=== PATIENT | female | born 1965 | race Caucasian/White ===

== ENCOUNTER → 2020-05-25 13:58 | Outpatient (CLI) | payer OTHER, SELFPAY ==
--- NOTE | 2020-05-25 14:04 | BI_ITS ---
MAMMOGRAPHY - UNILATERAL DIAGNOSTIC: LEFT BREAST REASON FOR EXAM: Female, 54 years old. Abnormal screening mammogram. PERTINENT HISTORY: Mother with breast cancer. Aunt with breast cancer. TECHNIQUE: 90 degree lateral view of the right breast was obtained. . CAD: Full Field Digital Mammography with Computer Added Detection was performed. COMPARISON: Comparison is made with prior outside examination dated 03/25/2020. FINDINGS: Breast Composition: The breasts are heterogeneously dense, which may obscure small masses. There are no dominant masses or suspicious calcifications. No other significant abnormalities are identified. BI/DIAG MAMM W/CAD, UNILAT IMPRESSION: Stable unilateral diagnostic mammogram. Correlation with ultrasound is recommended for further evaluation. ASSESSMENT CATEGORY: BIRADS Category 0: Incomplete. Need additional imaging evaluation. A letter regarding these results will be sent to the patient by the facility within 30 days. Approximately 10% of breast cancers are not detected by mammography. A normal mammogram should not delay biopsy of a clinically suspicious abnormality. Electronically Signed: Mike Wolfe MD at 8:01 EDT , Service support ,
--- NOTE | 2020-05-25 14:04 | US_ITS ---
STUDY: ULTRASOUND BREAST - LEFT REASON FOR EXAM: Female, 54 years old. TECHNIQUE: Axial and longitudinal images of the LEFT breast were performed with a high resolution ultrasound transducer. # OF IMAGES: 44 COMPARISON: Comparison is made with prior mammogram done earlier in the day as well as prior outside imaging dated 09/22/2020. FINDINGS: LEFT Breast: There is a 4 mm x 6 mm x 4 mm cyst at the 1 o''clock position of the breast at 1 cm from nipple. US/Breast Limited Unilateral IMPRESSION: There is a 4 mm x 6 mm x 4 mm cyst at the 1 o''clock position of the breast at 1 cm from nipple. ASSESSMENT CATEGORY: BIRADS Category 2: Benign. A letter regarding these results will be sent to the patient by the facility within 30 days. Electronically Signed: Mike Wolfe MD at 18:45 EDT , Service support ,
== END ==
PROVIDERS: PCP Family Medicine; Referring Provider Nurse Practitioner Family; Visit Provider Nurse Practitioner Family
DX: R92.8 Other abnormal and inconclusive findings on diagnostic imaging of breast (principal)
CPT/HCPCS: 76642; 77065

== ENCOUNTER → 2020-07-23 07:02 | Outpatient (CLI) | payer OTHER, SELFPAY ==
--- NOTE | 2020-07-23 09:10 | STRESSREP ---
Stress Test Report Date: 07-23-2020 Procedure: Exercise tolerance test/imaging study Indications: Chest pain; shortness of breath/dyspnea with exertion Consent: Per the patient Procedure: The patient exercised on a Lucius protocol for 9 minutes completing Stage III achieving a peak heart rate of 151 bpm (89% predicted maximal heart rate) with a peak blood pressure 144/72 mmHg and a peak MET capacity of 10 METs. The baseline ECG demonstrated normal sinus rhythm. The peak exercise ECG demonstrated no obvious ECG changes. There was a rare PVC during exercise. The functional capacity was considered good. There was no complaint of chest discomfort during exercise or recovery. The examination was discontinued secondary to dyspnea. Impression: 1. Technically adequate (percent predicted maximal heart rate greater than 85%) exercise tolerance test 2. Peak exercise ECG with no obvious ECG changes 3. There was a rare PVC during exercise 4. Nuclear images pending Myocardial perfusion imaging study: Technique: The patient was injected with 11.2 mCi of technetium 99m Cardiolite and subsequently rest SPECT Cardiolite nuclear imaging was obtained in the horizontal long, vertical long, and short axis views. The patient exercised on a Lucius protocol for 9 minutes completing Stage III achieving a peak heart rate of 151 bpm (89% predicted maximal heart rate) with a peak blood pressure 144/72 mmHg and a peak MET capacity of 10 METs. The patient was injected with 32 point mCi of technetium 99m Cardiolite and subsequently stress SPECT Cardiolite nuclear imaging was obtained in the horizontal long, vertical long, and short axis views. A gated Cardiolite study at peak stress was obtained. Interpretation: Rest and stress SPECT Cardiolite nuclear imaging status post realignment, normalization, and attenuation correction, demonstrates the appearance of relative uniform tracer uptake and myocardial perfusion appearing within normal limits. There is end systolic thickening and brightening. The gated Cardiolite study demonstrates myocardial thickening and inward wall motion. The reported LVEF is 78%. Impression: 1. Rest and stress SPECT Cardiolite nuclear imaging demonstrate relative uniform tracer uptake and myocardial perfusion appearing within normal limits. 2. The gated Cardiolite study reports an LVEF of 78%. This note was generated with [employer] software. It may contain incorrect words, spelling, and punctuation that were not noted in checking the note before signing.
== END ==
PROVIDERS: PCP Family Medicine; Referring Provider Family Medicine; Visit Provider Family Medicine
DX: R07.9 Chest pain, unspecified (principal)
CPT/HCPCS: 78452; 93017; A9500; A4216

== ENCOUNTER 2023-04-10 10:31 | Day surgery (SDC) | payer OTHER, SELFPAY ==
[2023-04-10 10:51] VITALS: BP 126/86; PULSE 107; RESP 20; TEMP 36.7; O2SAT 100; BMI 25.0
[2023-04-10] MEDS: Lactated Ringers 1,000 ML 15 ML IV (10:59)
--- OUTSIDE RECORDS SUMMARY | 2023-04-10 11:09 | XMS RPT_ITS | CCD ---
Author Name Unknown Address [address] [place] [address] Organization [facility] Care Team Providers Care Advisor Consultant Name Role Phone Frank Gonsalez DO Primary Care Provider SELF Referring Unavailable ESTRELLITA MCNEAL Attending Unavailable FRANK GONSALEZ Primary Care Unavailable Medications Completed/Discontinued Medications Medication Drug Class(es) Dates Sig (Normalized) Sig (Original) DOCOSAHEXANOIC ACID/EPA (FISH OIL ORAL) (1 source) DOCOSAHEXANOIC A KERRY/EPA (FISH OIL ORAL) Take by mouth. 0 Active Problems Problem Classification Problem Date Documented Da te Episodic/Chronic Disorders of lipid metabolism (1 source) Hypercholesterolemi a; Translations: [Pure hypercholesterolemi a, unspecified] Onset: 08-16-2016 08-16-2016 Chronic Headache; including migraine (1 source) Migraine; Translations: [Migraine, unspecified, not intractable, without status migrainosus] Onset: 10-14-2008 10-14-2008 Chronic Headache; including migraine (1 source) Headache; Translations: [Headaches] 04-07-2023 Episodic Menopausal disorders (1 source) Menopausal symptom; Translations: [Menopausal and female climacteric states] 04-07-2023 Chronic Results Test Name Value Interpretation Reference Range Facil ity Vital Signs Date Time Vital Sign Value Performing Clinician Faci lity 04-07-2023 12:41-0500 Body height 154.9 cm Estrellita Mcneal MD Work Phone: [facility] 04-07-2023 12:41-0500 Body weight 63.5 kg Estrellita Mcneal MD Work Phone: [facility] 04-07-2023 12:41-0500 Diastolic blood pressure 72 mm[Hg] Estrellita Mcneal MD Work Phone: [facility] 04-07-2023 12:41-0500 Systolic blood pressure 110 mm[Hg] Estrellita Mcneal MD Work Phone: [facility] Encounters Encounter Date Encounter Type Care Provider Facility Start: 04-07-2023 End: 04-07-2023 ambulatory SELF Facility:[facility] Start: 04-07-2023 End: 04-07-2023 Patient encounter procedure Estrellita Mcneal MD Work Phone: OB/Gynecology Procedures Date Procedure Procedure Detail Performing Clinician Start: 08-16-2016 Lipid 1996 panel - S [place]ber[place] or Plasma Estrellita Mcneal MD Work Phone: Plan of Treatment Date Care Activity Detail Author Start: 03-25-2025 Screening for malign ant neoplasm of cervix [facility] Start: 02-27-2023 Depression Assessment Depression Ass essment [facility] Start: 10-28-2022 Covid-19 Vaccine ( season) Covid-19 Vaccine ( season) [facility] Start: 10-28-2022 Influenza vaccination Influenza Vacc ine (#1) [facility] Start: 08-16-2021 Lipid panel Lipid Screening [facility] Start: 05-25-2021 Screening for malign ant neoplasm of breast Mammogram Screening [facility] Start: 08-17-2019 Diabetes Screening Diabetes Screenin g [facility] Start: 10-03-2017 Shingrix Vaccine (1 of 2) Rapp grix Vaccine (1 of 2) [facility] Start: 10-03-2012 Screening for malign ant neoplasm of colon [facility] Start: 10-03-1986 Urine microalbumin profile DTa P,Tdap,Td Vaccine (1 - Tdap) [facility] Start: 10-03-1985 Hepatitis C screening Hepatitis C Thai brian [facility] Start: 10-03-1985 HIV screening HIV Screening [facility] Start: 1965 Hepatitis B Vaccine (1 of 3 - 3-dose series) Hepatitis B Vaccine (1 of 3 - 3-dose series) [facility] Immunizations Immunization Date Immunization Notes Care Provider Fa cility 01-13-2022 influenza virus vacc ine, unspecified formulation Estrellita Mcneal MD Work Phone: [facility] Payers Date Payer Category Payer Unknown [facility] [employer]F FUNDED [id number] 2023-Present [phone] [address] [place] [address] PPO [id number] 2023 Unknown [id number] Social History Date Type Detail Facility [facility]: [facility] Start: 02-06-2013 Tobacco use and exposure Smoke less tobacco non-user [facility] Start: 04-07-2023 Alcohol intake Current drinke r of alcohol (finding) [facility] Start: 04-07-2023 History of Social function [facility] Start: 04-07-2023 Tobacco use panel [facility] National Score (1-10 0), lower number is lower risk 52 [facility] Start: 1965 Sex Assigned At Not on file [facility] Progress note 04-07-2023 Note Date & Type Note Facility 04-07-2023 Note HNO ID: [id number] Author: ESTRELLITA MCNEAL MD Service: ? Author Type: Physician Type: Progress Notes Filed: 04/07/2023 17:04 Note Text: Reese is a 57 year old who presents for an annual gynecologic exam without complaints. Postmenopausal: Yes. Went 3 years without bleeding and then 1 episode of period like bleeding about 1 year ago. No bleeding since then HRT use: No. Last Pap: 04/01/2020 normal HPV: 03/30/2020 negative History of abnormal pap: No Last mammogram: 2020 incomplete and had follow up imaging done at [facility] History of abnormal mammogram: Yes - as noted above Sexually active: Yes Scheduled colonoscopy next week OB History T3 L3 SAB0 IAB0 Ectopic0 Multiple0 Live Births0 Shirring Tender History LMP: 03/12/2020, Postmenopausal Age at Menarche: Age at First : Age at Menopause: Shirring Tender History Comments: Sexual Activity: Yes; Male; INFERTILITY Contraception: None PAST MEDICAL HISTORY Diagnosis Date Dysthymic disorder Depression (non-psychotic) Migraine PMH - PAST MEDICAL HISTORY OF INFERTILITY PAST SURGICAL HISTORY Procedure Laterality Date ADENOIDECTOMY PRIMARY Adenoidectomy LAPS ABD PRTMANDOMENTUM DX W/WO SPEC BR/WA SPX Laparoscopy TONSILLECTOMY PRIMARY/SECONDARY Tonsillectomy FAMILY HISTORY Problem Relation Age of Onset Breast Cancer Mother 60's Prostate Cancer Father Breast Cancer Maternal Aunt Osteoporosis Maternal Aunt Diabetes Maternal Aunt SOCIAL HISTORY Social History Tobacco Use Smoking status: Never Smokeless tobacco: Never Vaping Use Vaping Use: Never used Substance Use Topics Alcohol use: Yes Comment: OCCASIONALLY Drug use: No REVIEW OF SYSTEMS Abdomen: No abdominal pain, nausea, vomiting, diarrhea, or constipation. Bladder: No dysuria, gross hematuria, urinary frequency, urinary urgency, or incontinence Breast: No breast lumps, nipple d/c, overlying skin changes, redness or skin retraction Allergies and current medication updated:Yes EXAM: BP 110/72 Ht 5' 1 (1.55m) Wt 140 lb (63.5kg) LMP 03/12/2020 BMI 26.47 kg/(m2). GENERAL: pleasant, female in no apparent distress HEENT: Normocephalic and atraumatic NECK: Supple, full range of motion, no adenopathy, and thyroid normal DERMATOLOGY: Normal, without lesions, non-icteric, and non-hirsute BREAST: soft, non-tender, symmetric, no dominant mass, normal nipple-areolar complex, no lymphadenopathy, and no nipple discharge, pea sized nodule palpated in left breast at the 1 o'clock position CHEST: Normal inspiratory effort ABDOMEN: soft, non-tender, and no masses PELVIC: external genitalia normal, normal Bartholin's glands, urethra, Seth Ward's glands, no vulvar lesions, no cervical lesions, good vaginal support, physiologic discharge present, normal appearing perineal body and perianal region BIMANUAL: uterus normal size, shape and consistency, no adnexal masses, and non-tender RECTOVAGINAL: deferred. NEURO: exam grossly non-focal EXTREMITIES: normal ASSESSMENT/PLAN: 1) Health maintenance: Pap/HPV up to date. Diagnostic bilateral mammogram and left breast US ordered. Nutrition, exercise and routine health maintenance exams reviewed. Colon cancer screening: followed by PCP and scheduled. TSH/lipids/glucose: followed by PCP. Magnesium for headaches. Pelvic US for episode of PMB. Discussed menopausal expectations and information given to review. Discussed r/b/a HRT and she desires to start the patch. Will send in once breast imaging and pelvic ultrasound return. Discussed vitamin D and calcium supplementation. 2) Follow up one year or sooner as needed Estrellita Mcneal DO [facility] Instructions 04-07-2023 Patient Instructions Note Date & Type Note Facility 04-07-2023 Instructions Estrellita Mcneal MD - 04/07/2023 1:04 PM EST ACOG Screening Guidelines The following health screening schedule is recommended by the [employer] (ACOG). Some of these tests may be ordered or performed by your primary care doctor. Pap test screening The pap test looks at cells on the cervix (the opening from the vagina to the uterus) to look for cancer or pre-cancerous changes. These changes are caused by the human papillomavirus (HPV). Studies estimate that half of all women will test positive for this virus within 3 years of starting sexual activity. For young women with a normal immune system, 90% of HPV infections will resolve within 2 years. There is a vaccine available against some forms of HPV. This is recommended for girls and women age 9-45. For ages 9-14, two injections are given at 0 and 6 months. For ages 15-45, three injections are given at 0,2 and 6 months. Because this vaccine does not protect against all HPV types which can cause cervical cancer, women who received the vaccine still need pap tests. Pap smear screening should be started at age 21. The pap test should be done every 3 years from age 21-29. From age 30-65, pap smears can be done every 5 years if HPV test is negative or every 3 years if HPV testing is not done. For women over the age of 65, ACOG recommends against screening women who have had adequate prior screening and are not otherwise at high risk for cervical cancer. Women who have had a hysterectomy also do not need routine pap smear screening unless the pap smear was done for a cervical cancer or moderate to severe dysplasia. Breast cancer screening Mammogram should be performed every 1-2 years starting at age 40 and every year starting at age 50. Screening may be started earlier depending on family history. Cholesterol screening Lipid panel (cholesterol test) should be checked every 5 years starting at age 45. Diabetes screening Fasting glucose (blood sugar) test should be performed every 3 years starting at age 45. Colorectal cancer screening Starting at age 45, women should have a screening colonoscopy at least every 10 years. Screening may be started earlier depending on family history. Thyroid screening Thyroid function test (TSH) should be checked every 5 years starting at age 50. Bone mineral density screening All postmenopausal women age 65 and over and postmenopausal women with risk factors for osteoporosis should have a bone mineral density test performed. Risk factors include race, family history of osteoporosis, personal history of fractures, poor nutrition, smoking, heavy alcohol use, early menopause, low calcium intake and low body weight. Certain medical conditions and long-term use of some medications may also increase risk. Calcium and Vitamin D Supplementation (from the National Institutes of Health Office of Dietary Supplements 2011) Calcium is required by the body for blood vessel, muscle, hormone and nerve functioning. Most of the body's calcium is stored in the bones and teeth where it supports structure and function. Bone is continuously broken down and reformed. When bone breakdown exceeds formation, especially in postmenopausal women, bone loss can increase the risk of osteoporosis and fractures. In addition to low calcium intake, women who smoke, have a family history of osteoporosis, are thin, or , or who take certain medications such as cancer chemotherapy, seizure mediations and steroids are at increased risk of osteoporosis. The calcium requirements in women change with age. The National Institutes of Health (NIH) recommends: 1000mg elemental calcium for premenopausal women age 19-50 1200mg elemental calcium for postmenopausal women and all women over 50 Milk, yogurt, and cheese are rich natural sources of calcium and are the major food contributors in the [place]. For example, 8oz of milk (whole, lowfat or skim) contains about 300mg calcium, 8oz of yogurt contains 415mg. Nondairy sources include salmon and sardines and vegetables, such as Uzbek cabbage, kale, and broccoli. Foods fortified with calcium include many fruit juices, tofu and cereals. For more food calcium content information, visit http://ods.od.nih.gov/factsheets/calcium. Calcium supplements come in several different forms. Remember that the recommendations are for millgrams (mg) of elemental calcium which may be less than the total weight of the supplement. The amount of elemental calcium is required to be printed on the label. Calcium carbonate is the least expensive form. It must be taken on a full stomach to be properly absorbed. Some patients may experience gas or constipation. Calcium phosphate and calcium citrate may be taken either with or without food and tend to have less side effects but are generally more expensive. Because of its ability to neutralize stomach acid, calcium carbonate is found in some iyus-hws-kieiirs antacid products, such as Tums and Rolaids . Depending on its strength, each chewable pill or softchew provides 200 to 400 mg of elemental calcium. The percentage of calcium absorbed depends on the total amount of elemental calcium consumed at one time. Absorption is highest in doses <500mg. So a woman who takes 1,000mg/day of calcium from supplements should split the dose and take 500mg at two separate times during the day. Too much calcium can cause kidney stones, constipation, difficulty absorbing other nutrients and calcium buildup in blood vessels. Women under 50 should not exceed 2500mg/day (2000mg/day for women over 50) of calcium from food and supplements. Excessive alcohol and caffeine intake can inhibit absorption of calcium. Calcium can reduce the absorption of some medications if taken at the same time of day (bisphosphonates, thyroid medication, Phenytoin and other seizure medications, some antibiotics and iron supplements). Vitamin D promotes calcium absorption in the gut and maintains adequate blood levels of calcium and phosphate for normal bone growth and bone remodeling. Vitamin D also helps regulate cell growth as well as nerve, muscle and immune system function. Vitamin D is produced in the skin as a result of ultraviolet sunlight rays and must be altered in the liver and kidney to become its active form. Recommended intake according to the National Institutes of Health is 600 International Units (IU) for girls and women ages 1-70 and 800 IU for women over 70. Very few foods in nature contain vitamin D. The flesh of fatty fish (such as salmon, tuna, and mackerel) and fish liver oils are among the best sources. Small amounts of vitamin D are found in beef liver, cheese, mushrooms and egg yolks. Most people meet at least some of their vitamin D needs through exposure to sunlight. Season, time of day, length of day, cloud cover, smog, skin melanin content, and sunscreen are among the factors that affect UV radiation exposure and vitamin D synthesis. Despite the importance of the sun for vitamin D synthesis, it is prudent to limit exposure of skin to sunlight and avoid tanning beds. UV radiation is a carcinogen responsible for most of the estimated 1.5 million skin cancers that occur annually in the [place]. Lifetime cumulative UV damage to skin is also responsible for some age-associated dryness and other cosmetic changes. In supplements and fortified foods, vitamin D is available in two forms, D2 (ergocalciferol) and D3 (cholecalciferol). The two are equivalent at normal supplement doses. For women who require high supplement doses because of vitamin D deficiency, D3 may work better to raise blood levels. Some medications can prevent proper absorption of Vitamin D. These include laxatives, corticosteroids like prednisone, the seizure drugs phenobarbital and phenytoin, the weight-loss drug orlistat ( Xenical and AlliTM) and the cholesterol-lowering drug cholestyramine (Questran , LoCholest , and Prevalite ). Talk to your doctor about adjusting your recommended daily vitamin D dosage if you take these medications. You should not exceed 4000 mg of vitamin D supplementation daily unless specifically prescribed by your doctor. Hormone Therapy* (HT): Understanding Benefits and Risks (*Sometimes also called hormone replacement therapy, HRT) What are estrogen and progesterone? Estrogen and progesterone are hormones that are produced by a woman's ovaries. Why does the body need estrogen? Estrogen thickens the lining of the uterus, preparing it for the possible implantation of a fertilized egg. Estrogen also influences how the body uses calcium, an important mineral in the building of bones. In addition, estrogen helps maintain healthy levels of cholesterol in the blood. Estrogen is necessary in keeping the vagina healthy. As menopause nears, the ovaries reduce most of their production of these hormones. Lowered or fluctuating estrogen levels may cause menopause symptoms such as hot flashes, and medical conditions such as osteoporosis. What is hormone therapy (HT)? Hormone therapy (HT) is a treatment that is used to supplement the body with either estrogen alone or estrogen and progesterone in combination. When the ovaries no longer produce adequate amounts of these hormones (as in menopause), HT can be given to supplement the body with adequate levels of estrogen and progesterone. HT helps to replenish the estrogen, relieving some of the symptoms of menopause and helping to prevent osteoporosis. Why is progesterone taken? Progesterone is used along with estrogen in women who still have their uterus. In these women, estrogen-- if taken without progesterone--increases a woman's risk for cancer of the endometrium (the lining of the uterus). During a woman's reproductive years, cells from the endometrium are shed during menstruation. When the endometrium is no longer shed, estrogen can cause an overgrowth of cells in the uterus, a condition that can lead to cancer. Progesterone reduces the risk of endometrial (uterine) cancer by making the endometrium thin. Women who take progesterone may have monthly bleeding, or no bleeding at all, depending on how the hormone therapy is taken. Monthly bleeding can be lessened and, in some cases, eliminated by taking progesterone and estrogen together continuously. Women who have had a hysterectomy (removal of the uterus through surgery) usually do not need to take progesterone. This is an important point, because estrogen taken alone has fewer long-term risks than HT that uses a combination of estrogen and progesterone. What are the types of HT? There are two main types of HT: Estrogen Therapy (ET): Estrogen is taken alone. Doctors most often prescribe a low dose of estrogen to be taken as a pill or patch every day. Estrogen may also be prescribed as a cream, vaginal ring, gel or spray. You should take the lowest dose of estrogen needed to relieve menopause symptoms and/or to prevent osteoporosis. This type of HT is used if a woman has had a hysterectomy. Estrogen Progesterone/Progestin Hormone Therapy (EPT): Also called combination therapy, this form of HT combines doses of estrogen and progesterone (progestin is a synthetic form of progesterone). This type of HT is used if a woman still has her uterus. What are the benefits of taking HT? HT is prescribed to relieve: Hot flashes Vaginal dryness that can result in painful intercourse Other problematic symptoms of menopause, such as night sweats and dry, itchy skin Other benefits of taking HT include: Reduced risk of developing osteoporosis and reduced risk of bone breakage Improvement of mood and overall sense of mental well-being in some women Decreased tooth loss Lowered risk of colon cancer Lowered risk of diabetes Modest improvement in joint pains Lower rate for women who take hormone therapy in their 50s. What are the risks of taking HT? While HT helps many women get through menopause, the treatment (like any prescription or even non-prescription medicines) is not risk-free. Known health risks include: An increased risk of endometrial cancer (only if a woman still has her uterus and is not taking a progestin along with estrogen). Increased risk of blood clots and stroke. However, in women within 5 years of menopause there was no statistically significant increase in stroke risk. Also, studies suggest that using estrogen delivered from the skin via a patch/cream might further lessen the risk of blood clots. Increased chance of gallbladder/gallstone problems. Increased risk of dementia if hormone therapy is started after a woman has been in menopause for 10 years. It is not yet known if it might be beneficial for women who start HT in their 50s. Most of our understanding about the benefits and risks of hormone therapy on the heart and breast come from the Women s Health Initiative (WHI) study (one of the largest studies done on hormone therapy): HT and the heart Recent analysis of WHI actually shows that the risk of heart disease may be related more to the advanced age of the participants as opposed to the HT. The study also found that HT given to younger women, at the onset of menopause, appeared to decrease the risk of heart disease. More specifically: An increased risk of heart disease is only seen in women taking long-term estrogen-progestin combination therapy (EPT) if they start HT in their mid-60s. There does not seem to be an increased risk of heart disease when women in their 50s start EPT. Estrogen alone (ET) has not been shown to increase the risk of heart disease. Analysis of the age since menopause actually shows a decrease in the risk of heart disease when ET was started in younger women (those just beginning menopause). Currently, it is not recommended to use hormone therapy solely for the purpose of preventing heart disease. However these studies give us reassurance that when women just newly approaching menopause need HT for a short time, it is safe to do so in terms of shelter heart disease risk. HT and breast cancer Diagnosis of breast cancer increases when combination EPT is used beyond 3-5 years. This means that out of 10,000 women who use estrogen progestin therapy for more than 5 years, there will be 8 additional breast cancers diagnosed. In contrast, the WHI study showed women who use estrogen alone had no increase in risk of breast cancer even after 11 years of use. In fact, fewer breast cancers were seen in the group taking estrogen alone, though this was not statistically significant. When a woman comes off of hormone therapy, any potential increase in her risk of breast cancer quickly goes back to her baseline norm. This is why hormone therapy can be a safe option when women in their 50s (who are generally at lower risk for breast cancer compared to older women). Does starting HT closer to the time of menopause make it safer? One of the problems with the WHI study, which gave us much of our knowledge on the risks of HT, is that most women in the study were starting hormones in their mid-60s. Typically, women who need HT are newly menopausal, in their early 50s. Younger women in the WHI study had fewer risks and more benefits from HT. Newer studies are trying to understand the risks and benefits of HT in women in their 50s. One such study showed HT started early in postmenopausal women significantly reduced rate, heart attacks and heart failure. These postmenopausal women who started HT early and used it for more than 10 years were not at increased risk of breast cancer or stroke. What are some commonly used postmenopausal hormones? The following charts list the names of some, but not all, postmenopausal hormones. Types Brand Names Vaginal Tablet Vagifem Estrogen Pills Cenestin , Estinyl , Estrace , Menest , Ogen , Premarin , Femtrace Cream Estrace , Ogen , Premarin Vaginal Ring Estring , Femring Patch Tammy , Climara , Minivelle , Estraderm , Vivelle , Vivelle-Dot , Menostar Progestin Types Brand Names Pills/Capsules Amen , Aygestin , Curretab , Cycrin , Megace , Prometrium , Provera Vaginal Gel Prochieve progesterone gel 4%, 8% Combination types Brand Names Pills Activella , FemHRT , Premphase , Prempro , Angeliq Patchs CombiPatch , Climara-Pro Who shouldn't take HT? HT is not usually recommended for women who have: Active or past breast cancer Recurrent or active endometrial cancer Abnormal vaginal bleeding that has not been evaluated Recurrent or active blood clots History of stroke Liver disease Known or suspected What are the side effects of HT? Like almost all medications, hormone therapy has side effects. The most common side effects are: Monthly bleeding (if progestin given cyclical) Irregular spotting Breast tenderness Less common side effects of hormone therapy include: Fluid retention Headaches (including migraine) Skin discoloration (brown or black spots) Increased breast density making mammogram interpretation more difficult Skin irritation under estrogen patch How can I reduce these side effects? Adjusting either the dosage or the form of the medication you are taking can often reduce side effects of HT. However, you should never make changes in your medication or stop taking it without first consulting your doctor. How can I know if HT is right for me? The balance of risks versus benefits of HT can be very different for each woman, depending on her age, family history, and personal medical history. It is important to allow enough time at an office visit to discuss the risks and benefits of hormone therapy. This is a question that should usually be addressed at a separate office visit to allow plenty of time for detailed discussion with your doctor. How long should I take HT? Since research on HT is ongoing, women should reevaluate their treatment plans each year. Discontinue HT (under your health care provider's guidance) if you develop a medical condition that would make it less safe for you. Based on the WHI study results, should I stop taking HT? It's important that you do not make any abrupt changes to your HT without consulting your doctor. He or she can discuss with you the benefits and risks of HT based on your individual circumstances. First, the therapy should not be continued or started to prevent heart disease. Women should consult their doctor about other methods of prevention, such as lifestyle changes, and cholesterol- and blood pressure-lowering drugs. Second, for osteoporosis prevention, women should consult their doctor and weigh the benefits against their personal risks. Alternate treatments also are available to prevent osteoporosis and fractures. Finally, women taking HT for relief of menopausal symptoms may reap more benefits than risks. Women should talk with their doctor about their personal risks and benefits. References: Effect of Hormone Replacement Therapy on Cardiovascular Events in Recently Postmenopausal Women: Randomized Trial. BMJ Nov 2011. [place] [employer]. The 2012 hormone therapy position statement Accessed 07/26/12. [place] [employer] Endocrin[employer]. [place] [employer]ocrinologists Medical Guidelines for the Clinical Practice for the Diagnosis and Treatment of Menopause Accessed 08/19/12. Committee on Gynecological Practice. Postmenopausal estrogen therapy: Route of administration and risk of venous thromboembolism. Obstet Gynecol 2013 May; 121:887. Estrogen alone and joint symptoms in the Women's Health Initiative randomized trial. Menopause 2013 May 14. Non-Hormonal Ways to [place] with Hot Flashes and Menopause Hormone therapy is the most effective therapy for hot flashes. It is also the only FDA approved method to treat hot flashes. However, other non-hormonal options are available for women who are suffering from symptoms, but are not yet ready to consider hormone therapy. Some women are not appropriate candidates for hormone therapy, such as those have been recently treated for breast cancer, ovarian cancer, or endometrial/uterine cancer. It is important to remember that when used appropriately, hormone therapy can be a safe and effective option for many women. Here we will review non-hormonal treatment options for women. Knowing the triggers of hot flashes Hot flashes may be precipitated by hot weather, smoking, caffeine, spicy foods, alcohol, tight clothing, heat and stress. Identify and avoid your hot flash triggers. Some women notice hot flashes when they eat a lot of sugar. Exercising in warm temperatures might make hot flashes worse. Diet Avoiding caffeine, spicy foods, and alcohol can help lessen both the number and severity of hot flashes. Many women try to incorporate more plant estrogens into their diet. Plant estrogens, such as isoflavones, are thought to have weak estrogen-like effects that may reduce hot flashes. They may work in the body like a weak form of estrogen. Examples of plant estrogens include: soybeans, chickpeas, lentils, flaxseed, grains, beans, fruits, red clover and vegetables. In general, soybeans, chickpeas, and lentils are considered to have the most powerful plant estrogens, though their effect is much less than that of human estrogen. Try to choose natural foods rather than supplements. Also remember that only crushed or ground forms of flaxseed are likely to help (as compared to the whole seed or seed oil forms). What foods have high amounts of isoflavones Food Isoflavone Amount (Mg) In Food (100g) Soymilk 9.65 Soybeans, green, raw 151.17 Soy flour (textured) 148.61 148.61 Soybeans, dry roasted 128.35 Instant beverage soy, powder, not reconstituted 109.51 Miso soup mix, dry 60.39 Soybean chips 54.16 Tempeh, cooked 53.00 Soybean curd cheese 28.20 Tofu, silken 27.91 Tofu, yogurt 16.30 Source: USDA -- [facility] Database on the Isoflavone Content of Foods, 1998 Lifestyle changes Reducing the temperature in a room, dressing in layers, and the use of a fan while asleep can be effective ways to help deal with troublesome hot flashes. Women who are overweight tend to have more bothersome hot flashes, therefore weight loss can be helpful. Quitting smoking has a dual importance during menopause. First, smoking contributes to the increased cardiovascular risks of being postmenopausal. Second, smokers tend to experience more hot flashes. Women who lead a sedentary life seem to suffer more from hot flashes; however, it is best to exercise in a cooler environment. Try deep, slow abdominal breathing (6 to 8 breaths per minute). Practice deep breathing for 15 minutes in the morning, 15 minutes in the evening and at the onset of hot flashes. For some women, wearing socks to bed is helpful as it can help to cool core body temperature. Relieving insomnia Keep the bedroom cool to prevent night sweats. Avoid using sleeping pills. Exercise daily. Avoid caffeine and alcohol at night. Take a warm bath or shower at bedtime. Try milk products at bedtime or during the night (but avoid products that contain caffeine). Coping with mood swings, fears, and depression Find a self-calming skill to practice, such as yoga, meditation or slow, deep breathing. Avoid tranquilizers, if possible. Engage in a creative outlet that fosters a sense of achievement. Stay connected with your family and community; nurture your friendships. Relieving painful intercourse Try using a vaginal water-based moisturizing lotion or lubricant during intercourse. These are sold without a prescription near the condoms in most stores. Common names include-Astroglide and [place] liquid . Avoid Vaseline , as it may lead to yeast infections. Prescription and nonprescription remedies A number of non-hormonal remedies are available for the treatment of hot flashes. Some of these remedies (e.g., black cohosh and soy products) are available oshf-wdl-dryaxmj but are not FDA-approved. Some prescription medications are used off label to help reduce hot flashes. Using a product off label means that it is not FDA approved for the treatment of hot flashes, but is often used because it can be safe and effective for hot flash treatment.(considered the more effective non-hormonal treatments): Drug Side Effect Effectiveness venlafaxine (Effexor ) Nausea, change in bowel habits, headache (temporary side effects for most). Elevated blood pressure (at high doses) Effectiveness has been proven in several well-designed studies. One of the safer medications for women taking tamoxifen (no drug interaction). desvenlafaxine (Pristiq ) Similar to venlafaxine. Nausea, change in bowel habits, headache (temporary side effects for most). Elevated blood pressure (at high doses) Improvement in hot flashes compared to placebo has been shown. Newer med compared to venlafaxine, so a smaller number of studies are available. fluoxetine (Prozac ) Nausea, change in bowel habits, decreased libido, insomnia. Should be avoided in women taking tamoxifen. Improvement in hot flashes has been shown in well-designed studies. paroxetine (Paxil ) Nausea, change in bowel habits, decreased libido, dry mouth, weight gain (not common) Should be avoided in women taking tamoxifen. eTends to be more effective for sleep in women who are also suffering with insomnia. Improvement in hot flashes has been shown in well-designed studies. scitalopram (Lexapro ) Nausea, change in bowel habits, decreased libido, abnormal EKG (not common) Improvement in hot flashes has been shown in well-designed studies. Gabapentin (Neurontin ) Fatigue, dizziness, nausea, disorientation, swelling, weight gain Tends to be more effective for sleep in women who are also suffering with insomnia. Clonidine (Catapres ) Dry mouth, drowsiness, fatigue, constipation, lowers blood pressure Relieved hot flashes in some, but not all studies.Less commonly used than some of the other options. Non-prescription, herbal, fyna-qdv-fahoqhf therapies: Drug Side Effects Effectiveness Evening [place] Oil Nausea, diarrhea, headache. Only one well-designed study showing not effective. Black cohosh Mild stomach upset. Safe up to 6 months only due to possible estrogen-like effects. Liver toxicity has been reported. Some small, short-term studies have suggested benefits, however most studies do not suggest that it works. Soy (plant estrogen) Also referred to as phytoestrogens. Appears safe if consumed in foods. In supplement form, consistency of dose and quality can be a concern. Supplements are not recommended for breast cancer survivors For the most part, results from clinical studies show that phytoestrogens are not effective for treatment of hot flashes. Acupuncture Uncomfortable for some, often costly. Generally well-tolerated, but multiple visits required Individual trials have reported some benefits, but larger studies have not shown any improvement over placebo procedures. However some women do report benefits with this, so it is possible that more well-designed studies are needed to answer this question. Vitamin E 13% increase risk of heart failure. Might increase rate in those who use high doses for a long time. A higher risk of prostate cancer has also been shown, but applies only to men. One study showing effective. However the improvement seen in this was only one less hot flash per day compared to placebo. Are the kdhr-zvb-ycedvqz herbal products (botanicals) safe? While safe when taken in moderate amounts through diet, the consumption of extraordinary amounts of soy and isoflavone supplements may be harmful to women with a history of estrogen-dependent cancer, like breast cancer, and possibly to other women as well. More research is needed to determine the safety and effectiveness of botanical treatments. For example, Ginseng, [place], Wild yam, Progesterone cream, reflexology, and magnetic devices are sold to help menopausal symptoms, but there are no good studies looking at their safety or effectiveness. To make an informed decision about the use of these treatments, be sure to discuss them with your doctor. Because little is known about many botanicals, the best way to evaluate their safety and effectiveness is to become an educated consumer. Here are some tips to consider when shopping for alternative therapies. Ask yourself the following questions: What is the treatment? What does it involve? How does it work? Why does it work? Are there any risks? What are the side effects? Is it effective? (Ask for evidence or proof) How much does it cost? Once you answer these questions, discuss the therapy with your doctor. Make sure your doctor knows what therapy you are considering in order to discuss possible interactions or side effects with your current treatment. What are warning signs that a product may not be legitimate? When trying to determine whether or not a product is what it says it is, one of the elements you may want to look at is how the product is promoted. Be cautious of products promoted through: [employer] Direct mailings SafetySkillsals Ads disguised as valid news articles Ads in the back of magazines Additional red flags to look for include: Big claims: If products claim to be a cure for your condition, or gives outrageous claims, be cautious. Source: Be wary if the product is only offered through one substation engineer or purchased only through a health care provider s office. Ingredients: Make sure all of the active ingredients are listed, and don t trust secret formulas. Testimonials: Remember that only people who are satisfied with a product give testimonials and that they may be getting paid for their endorsement References: National Center for Complementary and Alternative Medicine. Vitamin E. [facility] hospital[facility].nih.gov Assessed May 28, 2012 Melba Cain et al. meta-analysis: High Dosage Vitamin E. Supplementation Might Increase All Cause Mortality. Annals of Internal Medicine March 02, 2004. annals.org National Center for Complementary and Alternative Medicine. Menopausal Symptoms and CAM. nccam.nih.gov Accessed May 28, 2012 [place] [employer], Hormone Therapy for women in 2012. www.menopause.org Assessed May 28, 2012 [place] [employer]stetricians and Gynecologists. Publications. The Menopause Years. www.acog.org Accessed 04/26/2010 Centers for Disease Control and Prevention. Women s Reproductive Health: Menopause. www.cdc.gov Accessed 04/26/2010 National [place] on Aging. Age Page: Menopause. www.angelica.nih.gov Accessed 04/26/2010 documented in this encounter [facility] History of Present illness Narrative 04-07-2023 Estrellita Mcneal MD - 04/07/2023 12:36 PM EST Note Date & Type Note Facility 04-07-2023 History of Presen t illness Narrative Reese is a 57 year old who presents for an annual gynecologic exam without complaints. Postmenopausal: Yes. Went 3 years without bleeding and then 1 episode of period like bleeding about 1 year ago. No bleeding since then HRT use: No. Last Pap: 04/01/2020 normal HPV: 03/30/2020 negative History of abnormal pap: No Last mammogram: 2020 incomplete and had follow up imaging done at [facility] History of abnormal mammogram: Yes - as noted above Sexually active: Yes Scheduled colonoscopy next week OB History T3 L3 SAB0 IAB0 Ectopic0 Multiple0 Live Births0 Shirring Tender History LMP: 03/12/2020, Postmenopausal Age at Menarche: Age at First : Age at Menopause: Shirring Tender History Comments: Sexual Activity: Yes; Male; INFERTILITY Contraception: None PAST MEDICAL HISTORY Diagnosis Date Dysthymic disorder Depression (non-psychotic) Migraine PMH - PAST MEDICAL HISTORY OF INFERTILITY PAST SURGICAL HISTORY Procedure Laterality Date ADENOIDECTOMY PRIMARY <AGE 14 Adenoidectomy LAPS ABD PRTM&OMENTUM DX W/WO SPEC BR/WA SPX Laparoscopy TONSILLECTOMY PRIMARY/SECONDARY <AGE 14 Tonsillectomy FAMILY HISTORY Problem Relation Age of Onset Breast Cancer Mother 60's Prostate Cancer Father Breast Cancer Maternal Aunt Osteoporosis Maternal Aunt Diabetes Maternal Aunt SOCIAL HISTORY Social History Tobacco Use Smoking status: Never Smokeless tobacco: Never Vaping Use Vaping Use: Never used Substance Use Topics Alcohol use: Yes Comment: OCCASIONALLY Drug use: No REVIEW OF SYSTEMS Abdomen: No abdominal pain, nausea, vomiting, diarrhea, or constipation. Bladder: No dysuria, gross hematuria, urinary frequency, urinary urgency, or incontinence Breast: No breast lumps, nipple d/c, overlying skin changes, redness or skin retraction Allergies and current medication updated:Yes EXAM: BP 110/72 Ht 5' 1 (1.55m) Wt 140 lb (63.5kg) LMP 03/12/2020 BMI 26.47 kg/(m^2). GENERAL: pleasant, female in no apparent distress HEENT: Normocephalic and atraumatic NECK: Supple, full range of motion, no adenopathy, and thyroid normal DERMATOLOGY: Normal, without lesions, non-icteric, and non-hirsute BREAST: soft, non-tender, symmetric, no dominant mass, normal nipple-areolar complex, no lymphadenopathy, and no nipple discharge, pea sized nodule palpated in left breast at the 1 o'clock position CHEST: Normal inspiratory effort ABDOMEN: soft, non-tender, and no masses PELVIC: external genitalia normal, normal Bartholin's glands, urethra, Seth Ward's glands, no vulvar lesions, no cervical lesions, good vaginal support, physiologic discharge present, normal appearing perineal body and perianal region BIMANUAL: uterus normal size, shape and consistency, no adnexal masses, and non-tender RECTOVAGINAL: deferred. NEURO: exam grossly non-focal EXTREMITIES: normal ASSESSMENT/PLAN: 1) Health maintenance: Pap/HPV up to date. Diagnostic bilateral mammogram and left breast US ordered. Nutrition, exercise and routine health maintenance exams reviewed. Colon cancer screening: followed by PCP and scheduled. TSH/lipids/glucose: followed by PCP. Magnesium for headaches. Pelvic US for episode of PMB. Discussed menopausal expectations and information given to review. Discussed r/b/a HRT and she desires to start the patch. Will send in once breast imaging and pelvic ultrasound return. Discussed vitamin D and calcium supplementation. 2) Follow up one year or sooner as needed Estrellita Mcneal DO documented in this encounter [facility] Evaluation note Note Date & Type Note Facility documented in this encounter [facility] Summary Purpose Family History No Family History Records Found Advance Directives No Advanced Directives Records Found Additional Source Comments Source Comments (unrecognize d section and content) In the event this informatio n is protected by the Federal Confidentiality of Alcohol and Drug Abuse Patient Records regulations: The Federal rules restrict any use of the information to criminally investigate or prosecute any alcohol or drug abuse patient.[facility] Reason for Visit (unrecogniz ed section and content) Care Teams (unrecognized sec tion and content) INFORMATION SOURCE (unrecogn ized section and content) FOR RECORDS PERTAINING TO PATIENTS WHO ARE OR HAVE BEEN ENROLLED IN A CHEMICAL DEPENDENCY/SUBSTANCEABUSE PROGRAM, SOME INFORMATION MAY BE OMITTED. This clinical summary was aggregated from multiple sources. Caution should be exercised in using it in the provision of clinical care. This summary normalizes information from multiple sources, and as a consequence, information in this document may materially change the coding, format and clinical context of patient data. In addition, data may be omitted in some cases. CLINICAL DECISIONS SHOULD BE BASED ON THE PRIMARY CLINICAL RECORDS. [employer] provides no warranty or guarantee of the accuracy or completeness of information in this document.
--- NOTE | 2023-04-10 11:28 | HP.PCM_ITS ---
[facility] - General General Date of Admission: 04/10/23 Date of Service: 04/10/23 Chief Complaint: Screening colonoscopy [facility] Narrative REESE MONSON, is a 57 F who presents today for screening colonoscopy. She has not had a colonoscopy in the past. She does not have abdominal pain. She has not had any cramping, bleeding or change in bowel habits. Overall she is very good health. [facility] Medical History (Updated 04/06/23 @ 13:33 by Ambreen Herrera) Alcohol use High cholesterol History of stress test Migraine headache Post-menopausal Restless legs Shortness of breath on exertion Home Medications NK 03/29/23 [History Last Taken Unknown] Allergy/AdvReac Type Severity Reaction Status Date / Time No Known Allergies Allergy Verified 04/10/23 10:50 Surgical History (Updated 04/06/23 @ 13:33 by Ambreen Herrera) Hx of exploratory laparotomy Hx of tonsillectomy Social History (Updated 03/29/23 @ 09:57 by Fidelina Avendaño) household members: spouse current occupational status: employed Smoking Status: Never smoker ROS Review of Systems ROS Unobtainable: other Constitutional Constitutional: Denies fatigue, fever(s), poor appetite, weight gain or weight loss ENT HEENT: Denies mouth lesions Cardiovascular Cardiovascular: Denies abdominal bloating, abdominal edema or abdominal pain Respiratory/Chest Respiratory/Chest: Denies change in mental status, change in phlegm color, chest congestion or chest tightness Gastrointestinal Gastrointestinal: Denies belching, bloating, change in bowel habits, change in stool character, chewing difficulty, coffee ground emesis, constipation, cramping, diarrhea, dyspepsia, dysphagia, early satiety, excessive flatus, fecal incontinence, heartburn, hematemesis, hematochezia, hemorrhoids, loose stools, melena, nausea, odynophagia, rectal bleeding, tenesmus, vomiting or weight changes Genitourinary Genitourinary: Denies abdominal discomfort, burning urination or itching Musculoskeletal Musculoskeletal: Reports as per HPI; Denies muscle weakness or myalgias Integumentary Integumentary: Denies jaundice Neurologic Neurologic: Denies lack of coordination or weakness Psychiatric Psychiatric: Denies confusion, depression, memory loss, mood swings, paranoia or suicidal ideation Endocrine Endocrinology: Denies systems reviewed and no addt'l complaints, except as documented Hematologic/Lymphatic Hematologic/Lymphatic: Denies anemia, easy bleeding, easy bruising or lymphadenopathy Allergic/Immunologic Allergic/Immunologic: Denies systems reviewed and no addt'l complaints, except as documented Vital Signs Vital Signs Vital Signs: 04/10/23 10:51 04/10/23 10:51 Temperature 98.0 F Temperature Source Temporal Pulse Rate 107 H Respiratory Rate 20 H Respiratory Pattern Normal Blood Pressure 126/86 H Blood Pressure Mean 99 Blood Pressure Source Monitor Blood Pressure Position Semi-Fowlers Blood Pressure Location Left Arm Pulse Ox 100 Oxygen Delivery Method Room Air Weight Weight: 136 lb 10.986 oz Body Mass Index (BMI) 25.0 Physical Exam Const alert General Appearance: cooperative Orientation / Consciousness: oriented to person HEENT hearing grossly normal bilaterally Head and Scalp: normal to inspection Face and Sinus: face symmetric Nose: external nose normal Mouth: oral and palatal mucosa normal Eyes conjunctivae normal General Eye: normal appearance of both eyes Neck full ROM General: normal visual inspection Lymph Lymphatic: no lymphadenopathy noted Chest inspection of chest normal and palpation of chest normal Chest: symmetrical chest wall rise Resp normal respiratory effort Effort and Inspection: able to speak in complete sentences Cardio regular rate GI non-distended Percussion: normal to percussion Rectal Exam: deferred Neuro Speech: speech normal Gait (Neuro): normal gait Assessment & Plan Assessment/Plan (1) Encounter for screening for malignant neoplasm of colon: PLAN: She was explained alternatives, risk, benefits include not withstanding bleeding, infection, sepsis, perforation, need for emergent surgery and . She will have an ASA of 2.
[2023-04-10 12:07] VITALS: BP 126/86; BP 99/75; PULSE 96; RESP 18; TEMP 36.7; O2SAT 98
[2023-04-10 12:10] VITALS: BP 108/77; BP 126/86; PULSE 87; RESP 14; O2SAT 97
--- NOTE | 2023-04-10 12:10 | OP.COLON_ITS ---
Patient Name: Zainab Quijano Procedure Date: 04/10/2023 11:29 AM Date of : 1965 Age: 57 Procedure: Colonoscopy Indications: Screening for colorectal malignant neoplasm Providers: Blaine Collier DO Referring MD: Frank Gonsalez Medicines: Monitored Anesthesia Care Patient Profile: This is a 57 year old female. Refer to note in patient chart for documentation of history and physical. Last Colonoscopy: none. The patient's first colonoscopy is today. Complications: No immediate complications. Procedure: Pre-Anesthesia Assessment: - Prior to the procedure, a History and Physical was performed, and patient medications and allergies were reviewed. The patient is competent. The risks and benefits of the procedure and the sedation options and risks were discussed with the patient. All questions were answered and informed consent was obtained. Patient identification and proposed procedure were verified by the physician in the pre-procedure area. Mental Status Examination: alert and oriented. Airway Examination: normal oropharyngeal airway and neck mobility. Respiratory Examination: clear to auscultation. CV Examination: normal. Prophylactic Antibiotics: The patient does not require prophylactic antibiotics. Prior Anticoagulants: The patient has taken no anticoagulant or antiplatelet agents. ASA Grade Assessment: II - A patient with mild systemic disease. After reviewing the risks and benefits, the patient was deemed in satisfactory condition to undergo the procedure. The anesthesia plan was to use monitored anesthesia care (MAC). Immediately prior to administration of medications, the patient was re-assessed for adequacy to receive sedatives. The heart rate, respiratory rate, oxygen saturations, blood pressure, adequacy of pulmonary ventilation, and response to care were monitored throughout the procedure. The physical status of the patient was re-assessed after the procedure. After I obtained informed consent, the scope was passed under direct vision. Throughout the procedure, the patient's blood pressure, pulse, and oxygen saturations were monitored continuously. The Colonoscope was introduced through the anus and advanced to the cecum, identified by appendiceal orifice and ileocecal valve. The colonoscopy was performed without difficulty. The patient tolerated the procedure well. The quality of the bowel preparation was adequate. The ileocecal valve, appendiceal orifice, and rectum were photographed. Scope In: 11:45:30 AM Scope Withdrawal Time 0 hours 7 minutes 7 seconds Scope Out: 12:01:38 PM Total Procedure Duration Time 0 hours 16 minutes 8 seconds Findings: The perianal and digital rectal examinations were normal. The colon (entire examined portion) appeared normal. No additional abnormalities were found on retroflexion. Impression: - The entire examined colon is normal. - No specimens collected. Recommendation: - Discharge patient to home. - Resume previous diet. - Continue present medications. - Repeat colonoscopy in 10 years for screening purposes. Procedure Code(s): --- Professional --- G0121, Colorectal cancer screening; colonoscopy on individual not meeting criteria for high risk CPT copyright 2021 [employer]. All rights reserved. The codes documented in this report are preliminary and upon maintenance trainer review may be revised to meet current compliance requirements. Blaine Collier DO 04/10/2023 12:10:18 PM This report has been signed electronically. Number of Addenda: 0 Note Initiated On: 04/10/2023 11:29 AM
--- NOTE | 2023-04-10 12:10 | OP.CCLET_ITS ---
04/10/2023 Frank Gonsalez Re : Colonoscopy procedure for Zainab Quijano [facility] [place] This procedure was performed on Monday, April 10, 2023. My impressions and recommendations are as follows: Impressions : - The entire examined colon is normal. - No specimens collected. Recommendations : - Discharge patient to home. - Resume previous diet. - Continue present medications. - Repeat colonoscopy in 10 years for screening purposes. My findings are described in the full procedure note, which is enclosed. If I can be of further assistance, please feel free to contact me at . Sincerely, Blaine Friend, 04/10/2023 12:10:18 PM This report has been signed electronically.
[2023-04-10 12:19] VITALS: BP 105/81; BP 126/86; PULSE 85; RESP 18; TEMP 36.4; O2SAT 99
[2023-04-10 12:53] VITALS: BP 126/86
== END 2023-04-10 12:56 | disposition home or self-care (01) ==
LOC: EN 10:33 → AC 10:34
PROVIDERS: PCP Family Medicine; Referring Provider Internal Medicine Gastroenterology; Visit Provider Internal Medicine Gastroenterology
PROC: 0DJD8ZZ Inspection of Lower Intestinal Tract, Via Natural or Artificial Opening Endoscopic (ICD-10-PCS; CPT 45378; principal; 2023-04-10 11:25)
DX: Z12.11 Encounter for screening for malignant neoplasm of colon (principal); E78.00 Pure hypercholesterolemia, unspecified
CPT/HCPCS: 45378; J7120; J2405

== ENCOUNTER → 2023-04-13 | Outpatient (CLI) | payer OTHER, SELFPAY ==
--- NOTE | 2023-04-13 14:19 | US_ITS ---
STUDY: ULTRASOUND BREAST - LEFT REASON FOR EXAM: Female, 57 years old. Palpable lump left breast. TECHNIQUE: Axial and longitudinal images of the LEFT breast were performed with a high resolution ultrasound transducer. # OF IMAGES: 31 COMPARISON: Comparison is made with prior mammogram done earlier today. Comparison is also made with prior ultrasound of the left breast dated May 25, 2020. FINDINGS: LEFT Breast: There is a 3 mm x 2 mm x 2 mm cyst at the 6:00 position of the breast at 4 cm from the nipple. There is also evidence of dilated retroareolar ducts. US/Breast Limited Unilateral IMPRESSION: 3 mm x 2 mm x 2 mm cyst at the 6:00 position of the breast at 4 cm from the nipple. Dilated retroareolar ducts. ASSESSMENT CATEGORY: BIRADS Category 2: Benign. A letter regarding these results will be sent to the patient by the facility within 30 days. Electronically Signed: Mike Wolfe MD at 8:28 EST ,
--- NOTE | 2023-04-13 14:19 | BI_ITS ---
MAMMOGRAPHY - BILATERAL DIAGNOSTIC REASON FOR EXAM: Female, 57 years old. Left breast lump. PERTINENT HISTORY: Mother with breast cancer. Aunt with breast cancer. TECHNIQUE: Digital bilateral breast eula (3D mammographic acquisition) in the CC and MLO projections. 2-D mediolateral oblique (MLO) and craniocaudad (CC) views of both breasts were obtained. CAD: Full Field Digital Mammography with Computer Added Detection was performed. COMPARISON: Comparison is made with prior mammogram dated May 25, 2020. FINDINGS: Breast Composition: The breasts are heterogeneously dense, which may obscure small masses. There are no dominant masses or suspicious calcifications. Small benign-appearing bilateral axillary lymph nodes. No other significant abnormalities are identified. There has been no significant change since the prior study. BI/DIAG MAMM W/CAD, BILAT IMPRESSION: Stable bilateral diagnostic mammogram. With the patient''s history of a palpable lump in the inferior central portion of the left breast, correlation with ultrasound is recommended. ASSESSMENT CATEGORY: BIRADS Category 0: Incomplete. Need additional imaging evaluation. A letter regarding these results will be sent to the patient by the facility within 30 days. Approximately 10% of breast cancers are not detected by mammography. A normal mammogram should not delay biopsy of a clinically suspicious abnormality. Electronically Signed: Mike Wolfe MD at 8:26 EST ,
--- NOTE | 2023-04-13 14:50 | US_ITS ---
EXAM: US PELVIS TRANSABDOMINAL AND TRANSVAGINAL, COMPLETE CLINICAL INDICATION: PMB TECHNIQUE: Transabdominal and transvaginal pelvic ultrasound was performed with grayscale and color Doppler imaging. Transvaginal imaging was used for better evaluation of the endometrium and adnexa. COMPARISON: No relevant prior studies available. FINDINGS: UTERUS/CERVIX: The uterus measures 6.4 x 3.1 x 4.2 cm. Endometrium measures 4 mm. Anteverted. There is no uterine mass. RIGHT OVARY: The right ovary measures 2.9 x 1.4 x 2.0 cm. Blood flow is present in the right ovary. LEFT OVARY: The left ovary measures 2.0 x 1.3 x 1.7 cm. Blood flow is present in the left ovary. FREE FLUID: None. BLADDER: The bladder measures 7.2 x 7.3 x 8.6 cm for volume of 206 mL. US/Pelvic w/ Transvaginal IMPRESSION: No acute findings in the pelvis. Electronically Signed: Scott Fermin MD at 23:58 EST ,
== END | disposition home or self-care (01) ==
PROVIDERS: PCP Family Medicine; Referring Provider Obstetrics & Gynecology; Visit Provider Obstetrics & Gynecology
DX: Z12.31 Encounter for screening mammogram for malignant neoplasm of breast (principal); N95.0 Postmenopausal bleeding; Z80.3 Family history of malignant neoplasm of breast; N60.02 Solitary cyst of left breast
CPT/HCPCS: 76642; 76830; 76856; 77062; 77066; G0279

== ENCOUNTER → 2023-05-05 | Outpatient (CLI) | payer OTHER, SELFPAY ==
[2023-05-05 16:07] LABS: T3 Total - Triiodothyronine 0.96 ng/mL (0.6-1.81)
[2023-05-05 16:13] LABS: T4 Total, Thyroxin 7.6 ug/dL (4.8-13.9); Thyroid Stim Hormone (TSH) 1.32 uIU/mL (0.358-3.74)
== END | disposition home or self-care (01) ==
LOC: LAB 15:20
PROVIDERS: PCP Family Medicine; Referring Provider Family Medicine; Visit Provider Family Medicine
DX: E78.00 Pure hypercholesterolemia, unspecified (principal); R63.5 Abnormal weight gain
CPT/HCPCS: 36415; 84436; 84443; 84480

== ENCOUNTER → 2023-05-11 | Outpatient (CLI) | payer OTHER, SELFPAY ==
--- NOTE | 2023-05-11 11:23 | BD_ITS ---
STUDY: DUAL ENERGY X-RAY ABSORPTIOMETRY / DXA REASON FOR EXAM: Female, 57 years old. V76.12ScreeningBONE DENSITY REASON FOR EXAM TECHNIQUE: Bone Mineral Density (BMD) measurements of lumbar spine and bilateral hips were obtained. COMPARISON: None. FINDINGS: Lumbar Spine (L1-L4): g/cm2 (0.982) / T-score (-0.6) / Z-score (0.5) Findings are suggestive of normal bone density with a low fracture risk. Left Femur Total: g/cm2 (0.985) / T-score (0.3) / Z-score (1.1) Left Femoral Neck: g/cm2 (0.750) / T-score (-0.9) / Z-score (0.2) Right Femur Total: g/cm2 (0.966) / T-score (0.2) / Z-score (0.9) Right Femoral Neck: g/cm2 (0.701) / T-score (-1.3) / Z-score (-0.2) BD/Dexa Bone Density Study IMPRESSION: The patient is considered osteopenic as outlined below according to World [place] Organization (WHO) criteria with a low fracture risk. Reference Information: The T-score is the number of standard deviations above or below the standard which is normal for young adults at their peak bone mineral density. The World Health Organization (WHO) interprets the T-scores as follows: Above -1 Normal bone density Between -1 and -2.5 Osteopenia Equal to / or below -2.5 Osteoporosis As a practical clinical guideline, osteopenia may be graded as follows: Mild -1 through -1.5 Moderate -1.6 through -2.0 Severe -2.1 through -2.4 The Z-score is the number of standard deviations above or below age-matched controls. A Z-score of less than -1.5 would be considered abnormal. References: 1. NIH Osteoporosis and Related Bone Diseases www osteo.org 2. International Society for Clinical Densitometry www iscd.org 3. National Osteoporosis Foundation www nof.org Electronically Signed: Mike Wolfe MD at 12:27 EDT ,
== END | disposition home or self-care (01) ==
LOC: OPBD 11:45
PROVIDERS: PCP Family Medicine; Referring Provider Family Medicine; Visit Provider Family Medicine
DX: Z13.820 Encounter for screening for osteoporosis (principal)
CPT/HCPCS: 77080

== ENCOUNTER → 2024-05-16 | Outpatient (CLI) | payer OTHER, SELFPAY ==
--- NOTE | 2024-05-16 14:20 | BI_ITS ---
EXAM: DIAG MAMM W/CAD, BILAT DATE: 05/16/2024 CLINICAL HISTORY: F, Age 58 y/o , LUMP LEFT BREAST BREAST CANCER RISK ASSESSMENT: Not assessed. TECHNIQUE: Bilateral screening digital breast tomosynthesis with 2D and 3D images. Computer aided detection. COMPARISON: Prior exam(s) dated April 13, 2023.. FINDINGS: TISSUE DENSITY: The breast tissue is heterogenously dense, which may obscure small masses. Bilateral Breast Mammographic Findings: No significant masses, calcifications or other abnormalities are identified. No suspicious masses, areas of developing architectural distortion, or suspicious calcifications. There has been no significant interval change. With the patient's history of a palpable lump in the inferior anterior slightly medial aspect of the left breast, correlation with ultrasound recommended. BI/DIAG MAMM W/CAD, BILAT IMPRESSION: Right Breast: BIRADS 1 NEGATIVE. Left Breast: BIRADS 0 Incomplete: Need additional imaging evaluation and/or priyank or mammograms for comparison.. OVERALL FINAL ASSESSMENT: BIRADS 0 Incomplete: Need additional imaging evaluati on and/or prior mammograms for comparison. RECOMMENDATION: Sonographic correlation recommended. A letter with findings and recommendations will be mailed to the patient. Reading Location: [place] [id number]
--- NOTE | 2024-05-16 14:20 | US_ITS ---
PROCEDURE: BREAST LIMITED UNILATERAL 05/16/2024 REASON FOR EXAM: LUMP Left breast pain/lump. COMPARISON: Comparison is made with prior mammogram done earlier in the day. TECHNIQUE: Targeted ultrasound of the left breast was obtained. FINDINGS: LEFT: Ultrasound targeted to the inferior half of the left breast at the left breast. The breast tissue appears sonographically normal. No cyst, solid mass, or suspicious shadowing. US/Breast Limited Unilateral IMPRESSION: No sonographic abnormality is seen. BI-RADS 1: NEGATIVE. RECOMMEND ANNUAL MAMMOGRAPHIC SCREENING. Reading Location: [place] [id number]
== END | disposition home or self-care (01) ==
PROVIDERS: PCP Family Medicine; Referring Provider Nurse Practitioner Family; Visit Provider Nurse Practitioner Family
DX: N63.25 Unspecified lump in the left breast, overlapping quadrants (principal); N63.42 Unspecified lump in left breast, subareolar
CPT/HCPCS: 76642; 77062; 77066; G0279

== ENCOUNTER → 2024-08-19 | Outpatient (CLI) | payer OTHER, SELFPAY ==
[2024-08-19 07:15] LABS: Bacteria 0 SEEN /hpf (None Seen); Mucous, Urine 0 SEEN /hpf (<or=2+); Red Blood Cells-Urine 0 SEEN /hpf (0-5); White Blood Cells 0 SEEN /hpf (0-5)
--- OUTSIDE RECORDS SUMMARY | 2024-08-19 07:20 | XMS RPT_ITS | CCD ---
Author Organization [facility] Care Team Providers Care Valve Technician Name Role Phone Frank Gonsalez DO Primary Care Provider Dr. Timbo Toney Primary Care Provider Fidelina Avendaño Attending Provider Unavailable Dr. Frank Gonsalez Primary Care Provider [phone] Friend, Dr. Valladares Attending Provider Friend, Dr. Valladares Referring Provider FriendDr. Valladares Other Provider Frank Gonsalez DO Primary Care Provider Dr. Tmibo Toney Primary Care Provider Fidelina Avendaño Attending Provider Unavailable Dr. Frank Gonsalez Primary Care Provider FriendDr. Valladares Attending Provider FriendDr. Valladares Referring Provider [phone] FriendDr. Valladares Other Provider FRANK GONSALEZ Attending Unavailable FRANK GONSALEZ Primary Care Unavailable Frank Gonsalez DO Primary Care Provider Frank Gonsalez DO Primary Care Provide r ALIYA KEATING Attending Unavailable FRANK GONSALEZ Primary Care Unavail able ARNALDO OWEN Referring Unavailable FRANK GONSALEZ Primary Care Unavail able ARNALDO OWEN Attending Unavailable FRANK GONSALEZ Primary Care Unavail able Dr. Frank Gonsalez DO Primary Care Provider Assessment, Health Risk Attending Provider Unava ilable Rishabh ISLAS, Aliya Attending Provider [phone] Rishabh MENDEZ-Gary, Aliya Referring Provider Rishabh MENDEZ, Aliya Attending Unavailable Aliya Keating NP Referring Unavailable Frank Gonsalez Primary Care Unavailable RAJENDRA HANNA Attending Unavailable Frank Gonsalez Primary Care Unavailable RAJENDRA HANNA Referring Unavailable Rishabh MENDEZ, Aliya Attending Unavailable Rishabh MENDEZ, Aliya Referring Unavailable Frank Gonsalez Primary Care Unavailable Frank Gonsalez Attending Unavailable Timbo Toney Primary Care Unavailable Assessment, Health Risk Attending Unavaila Frank Zapien Primary [facility] Unavailable Medications Current Medications Medication Drug Class(es) Dates Sig (Normalized) Sig (Original) calcium phos,dibas-vitamin D3 100 mg calcium- 3 mcg tab (5 sources) Start: 02-01-2023 calcium phos,dibas-vitamin D3 100 mg calcium- 3 mcg tab 02/01/2023 Active DOCOSAHEXANOIC ACID/EPA (FISH OIL ORAL) (17 sources) DOCOSAHEXANOIC ACID/EPA (FISH OIL ORAL) Take by mouth. Active DOCOSAHEXANOIC A KERRY/EPA (FISH OIL ORAL) Take by mouth. 0 Active Comment on above: Take by mouth. estradiol 0.5 mg oral tablet (19 sources) Estrogen Start: 03-01-2024 take 1 tablet by mouth once daily estradiol (ESTRACE) 0.5 mg tablet Take 1 tablet by mouth once daily. 30 tablet 11 03/01/2024 Active Start: 08-17-2023 End: 03-01-2024 estradiol (CLIMARA) 0.025 mg /24 hr patch Indications: Vasomotor symptoms due to menopause Apply 1 Patch as directed one time a week. 4 Patch 2 12/14/2023 03/01/2024 Discontinued Start: 05-01-2023 End: 08-15-2023 estradiol (CLIMARA) 0.025 mg /24 hr Indications: Vasomotor symptoms due to menopause Apply 1 Patch as directed one time a week. 4 Patch 2 05/01/2023 08/15/2023 Discontinued Comment on above: Apply 1 Patch as dir ected one time a week. magnesium oxide 400 mg oral tablet (19 sources) Start: 04-07-19 take 1 tablet by mouth once daily magnesium oxide 400 mg magnesium tab Indications: Headaches Take 1 tablet by mouth once daily. 90 tablet 1 04/07/2023 Active Comment on above: Take 1 tablet by mary once daily. progesterone 100 mg oral capsule (20 sources) Progesterone Start: 08-17-19 End: 06-08-19 take 1 capsule by mouth once daily at bedtime progesterone micronized (PROMETRIUM) 100 mg capsule Indications: Vasomotor symptoms due to menopause Take 1 capsule by mouth daily at bedtime. 90 capsule 3 06/07/2024 06/07/2025 Active Start: 05-01-2023 End: 08-15-2023 take 1 capsule by mouth once daily at bedtime progesterone micronized (PROMETRIUM) 100 mg capsule Indications: Vasomotor symptoms due to menopause Take 1 capsule by mouth daily at bedtime. 30 capsule 2 05/01/2023 08/15/2023 Discontinued Comment on above: Take [address] [facility] daily at bedtime. Completed/Discontinued Medications Medication Drug Class(es) Dates Sig (Normalized) Sig (Original) alendronic acid 70 mg oral tablet (10 sources) Bisphosphonate Start: 05-24-2023 End: 05-23-2024 alendronate (FOSAMAX) 70 mg tablet PLEASE SEE ATTACHED FOR DETAILED DIRECTIONS 05/24/2023 04/17/2024 Discontinued aminolevulinate 200 mg/ml topical solution (2 sources) Start: 11-02-2023 End: 11-02-2023 aminolevulinic acid (LEVULAN) 20% topical solution Start: 11-02-2023 End: 11-02-2023 1 Each, TOPICAL, ONCE, 1 dos e, On Kathleen 11/02/23 at 1130 triamcinolone acetonide 0.001 mg/mg topical ointment (7 sources) Corticosteroid Start: 11-02-2023 End: 04-17-2024 triamcinolone acetonide (KENALOG) 0.1 % ointment Apply to stinging/burning areas of face twice daily. Do not use for more than one week on your face. 30 g 11/02/2023 04/17/2024 Discontinued Problems Active Problems Problem Classification Problem Date Documented Da te Episodic/Chronic Disorders of lipid metabolism (20 sources) Hypercholesterolemi a; Translations: [Pure hypercholesterolemi a, unspecified] Onset: 08-16-2016 08-16-2016 Chronic Headache; including migraine (17 sources) Migraine; Translations: [Migraine, unspecified, not intractable, without status migrainosus] Onset: 10-14-2008 10-14-2008 Chronic Headache; including migraine (1 source) Headache; Translations: [Headaches] 04-07-2023 Episodic Menopausal disorders (9 sources) Menopausal symptom; Translations: [Menopausal and female climacteric states] 04-07-2023 Chronic Nonmalignant breast conditions (3 sources) Lump of subareolar area of left breast; Translations: [Unspecified lump in left breast, subareolar] Onset: 04-17-2024 04-17-2024 Episodic Other and unspecified benign neoplasm (1 source) Multiple benign melanocytic nevi ; Translations: [Melanocytic nevi, unspecified] 07-05-2023 Episodic Other and unspecified benign neoplasm (1 source) Senile angioma; Translations: [Hemangioma of skin and subcutaneous tissue] 06-27-2023 Episodic Other bone disease and musculoskeletal deformities (1 source) Osteopenia; Translations: [Other specified disorders of bone density and structure, unspecified site] Onset: 04-28-2023 05-23-2023 Episodic Other nutritional; endocrine; and metabolic disorders (1 source) Weight gain; Translations: [Abnormal weight gain] 04-25-2023 Episodic Other nutritional; endocrine; and metabolic disorders (2 sources) Abnormal weight gain; Translations: [Abnormal weight gain] Onset: 04-25-2023 Episodic Other skin disorders (1 source) Seborrheic keratosis; Translations: [Other seborrheic keratosis] 06-27-2023 Episodic Other skin disorders (1 source) Lentiginosis; Translations: [Other melanin hyperpigmentation] 06-27-2023 Episodic Other skin disorders (2 sources) Actinic keratosis; Translations: [Actinic keratosis] 07-05-2023 Episodic Residual codes; unclassified (3 sources) FH: Alzheimer's disease; Translations: [Family history of epilepsy and other diseases of the nervous system] Onset: 04-25-2023 04-25-2023 Episodic Residual codes; unclassified (2 sources) Family history of malignant neoplasm of breast; Translations: [Family history of malignant neoplasm of breast] Onset: 12-13-2021 Episodic Residual codes; unclassified (1 source) Kidney donor; Translations: [Kidney donor] Onset: 08-12-2024 Episodic Unclassified (2 sources) Unspecified lump in the left breast, overlapping quadrants; Translations: [Mass overlapping multiple quadrants of left breast] Onset: 04-17-2024 Past or Other Problems Problem Classification Problem Date Documented Da te Episodic/Chronic Other screening for suspected conditions (not mental disorders or infectious disease) (16 sources) Patient encounter status; Translations: [Encounter for screening for malignant neoplasm of colon] Onset: 07-15-2020 03-29-2023 Episodic Residual codes; unclassified (3 sources) Family history of malignant neoplasm of breast in first degree relative; Translations: [Family history of malignant neoplasm of breast] Onset: 07-15-2020 04-25-2023 Episodic Results Test Name Value Interpretation Reference Range Facility Breast Limited Unilateralon 05-16-2024 Breast Limited Unilateral [facility] Imaging Services [address] [place] [address] [id number] Breast Limited Unilateral MR#: [id number] Acct: [id number] Name: ZAINAB QUIJANO Rep #: [id number] : 1965 F 58 From: Mike medrano MD PCP: Dr. Frank Gonsalez DO Status: [facility] CL Study: Breast Limited Unilateral Date of Exam: Exam# [id number] Ordering Dr: Aliya Keating NP SLIP COVER ESTIMATOR-C PROCEDURE: BREAST LIMITED UNILATERAL 05/16/2024 REASON FOR EXAM: LUMP Left breast pain/lump. COMPARISON: Comparison is made with prior mammogram done earlier in the day. TECHNIQUE: Targeted ultrasound of the left breast was obtained. FINDINGS: LEFT: Ultrasound targeted to the inferior half of the left breast at the left breast. The breast tissue appears sonographically normal. No cyst, solid mass, or suspicious shadowing. US/Breast Limited Unilateral IMPRESSION: No sonographic abnormality is seen. BI-RADS 1: NEGATIVE. RECOMMEND ANNUAL MAMMOGRAPHIC SCREENING. Reading Location: [facility] CC: ROSHAN Keating; Dr. Frank Gonsalez DO Marketing/Sales Person: Signed Normal [facility] Breast imaging reportOrdered By: Mike Wolfe on 05-16-2024 Study report [facility] Imaging Services [address] [place] [address] DIAG MAMM W/CAD, BILAT MR#: [id number] Acct: [id number] Name: ZAINAB QUIJANO Rep #: [id number] : 1965 F 58 From: Chong Wolfe MD PCP: Dr. Frank Gonsalez DO Status: RE G CLI Study:DIAG MAMM W/CAD, BILAT Date of Exam: 05/16/24 Exam# [id number] Ordering Dr: Aliya Keating NP SLIP COVER ESTIMATOR-Gary EXAM: DIAG MAMM W/CAD, BILAT DATE: 05/16/2024 CLINICAL HISTORY: F, Age 58 y/o , LUMP LEFT BREAST BREAST CANCER RISK ASSESSMENT: Not assessed. TECHNIQUE: Bilateral screening digital breast tomosynthesis with 2D and 3D images. Computeraided detection. COMPARISON: Prior exam(s) dated April 13, 2023.. FINDINGS: TISSUE DENSITY: The breast tissue is heterogenously dense, which may obscure small masses. Bilateral Breast Mammographic Findings: No significant masses, calcifications or other abnormalities are identified. No suspicious masses, areas of developing architectural distortion, or suspicious calcifications. There has been no significant interval change. With the patient's history of a palpable lump in the inferior anterior slightly medial aspect of the left breast, correlation with ultrasound recommended. BI/DIAG MAMM W/CAD, BILAT IMPRESSION: Right Breast: BIRADS 1 NEGATIVE. Left Breast: BIRADS 0 Incomplete: Need additional imaging evaluation and/or prior mammograms for comparison.. OVERALL FINAL ASSESSMENT: BIRADS 0 Incomplete: Need additional imaging evaluation and/or prior mammograms for comparison. RECOMMENDATION: Sonographic correlation recommended. A letter with findings and recommendations will be mailed to the patient. Reading Location: [place] [address] CC: ROSHAN Keating; Dr. Frank Gonsalez DO ~ Marketing/Sales Person: Signed [facility] DIAG MAMM W/CAD, BILATon DIAG MAMM W/CAD, BILAT [facility] Imaging Services [address] [place] [address] DIAG MAMM W/CAD, BILAT MR#: [id number] Acct: [id number] Name: ZAINAB QUIJANO Rep #: [id number] : 1965 F 58 From: Mike medrano MD PCP: Dr. Frank Gonsalez DO Status: REG CLI Study: DIAG MAMM W/CAD, BILAT Date of Exam: 05/16/24 Exam# [id number] Ordering Dr: Aliya Keating NP SLIP COVER ESTIMATOR-C EXAM: DIAG MAMM W/CAD, BILAT DATE: 05/16/2024 CLINICAL HISTORY: F, Age 58 y/o , LUMP LEFT BREAST BREAST CANCER RISK ASSESSMENT: Not assessed. TECHNIQUE: Bilateral screening digital breast tomosynthesis with 2D and 3D images. Computer aided detection. COMPARISON: Prior exam(s) dated April 13, 2023.. FINDINGS: TISSUE DENSITY: The breast tissue is heterogenously dense, which may obscure small masses. Bilateral Breast Mammographic Findings: No significant masses, calcifications or other abnormalities are identified. No suspicious masses, areas of developing architectural distortion, or suspicious calcifications. There has been no significant interval change. With the patient's history of a palpable lump in the inferior anterior slightly medial aspect of the left breast, correlation with ultrasound recommended. BI/DIAG MAMM W/CAD, BILAT IMPRESSION: Right Breast: BIRADS 1 NEGATIVE. Left Breast: BIRADS 0 Incomplete: Need additional imaging evaluation and/or prior mammograms for comparison.. OVERALL FINAL ASSESSMENT: BIRADS 0 Incomplete: Need additional imaging evaluation and/or prior mammograms for comparison. RECOMMENDATION: Sonographic correlation recommended. A letter with findings and recommendations will be mailed to the patient. Reading Location: [place] [address] CC: ROSHAN Keating; Dr. Frank Gonsalez DO Marketing/Sales Person: Signed Normal [facility] CNPNon 04-18-2024 CNPN Telephone (OBGYWM) ---- ZAINAB QUIJANO ([id number]) 1965 F Date Time Provider Department 04/18/24 ALIYA KEATING During your visit today, we recorded the following information about you: Johnny Almaraz LPN 04/18/2024 4:44 PM Signed Faxed cover sheet with notation to disregard prior mammogram order replace with current diagnostic mammogram order to [facility]iology [phone] 04/18/2024. Johnny Almaraz LPN Allergies As of Date: 04/18/2024 (No Known Allergies) Date Reviewed: 04/17/2024 Reviewed by: Aliya Keating APRN.AUTISM SPECIALIST - Fully Assessed Prescriptions as of 04/18/2024 - calcium phos,dibas-vitamin D3 100 mg calcium- 3 mcg tab - estradiol (ESTRACE) 0.5 mg tablet Take 1 tablet by mouth once daily. - progesterone micronized (PROMETRIUM) 100 mg capsule Take 1 capsule by mouth daily at bedtime. - magnesium oxide 400 mg magnesium tab Take 1 tablet by mouth once daily. - DOCOSAHEXANOIC ACID/EPA (FISH OIL ORAL) Take by mouth. Problem List As Of Date 04/18/2024 Noted Resolved Migraines [G43.909] 10/14/2008 Hypercholesteremia [E78.00] 08/16/2016 Encounter Status:Closed by JOHNNY ALMARAZ on 04/18/24 [facility] CNOVon 04-17-2024 CNOV Office Visit (OBGYWM) ---- ZAINAB QUIJANO ([id number]) 1965 F Date Time Provider Department 04/17/24 4:00 PM ALIYA KEATING During your visit today, we recorded the following information about you: Blood pressure Weight Height Last Period 100/70 63.1 kg 1.575 m 01/08/20 Aliya Keating APRN.CNP 04/17/2024 7:05 PM Signed Cranberry Sorter offered: Patient declinesKenya Lamb is a 58 year old who presents for an annual gynecologic exam without complaints. Postmenopausal: Yes since age 53 HRT use: Yes, estradiol and progesterone How lon-2 years. Still get period: No Menopause symptoms: None Time with current partner: 40 Number of lifetime partners: 1 control frequency: Never HPV vaccine: no Last pap smear: 03/25/2020, normal HPV negative History of abnormal pap: No, all prior PAP smears have been normal Bothersome pelvic pain: No Last mammogram: 03/2023 abnormal, dense breast tissue, no biopsy US benign retro-areolar ducts History of abnormal mammogram: Yes OB History Gravida3 Para3 Term3 Preterm0 AB0 Living3 SAB0 IAB0 Ectopic0 Multiple0 Live Births0 Call Center Agent History LMP: 01/08/2020, Postmenopausal Age at Menarche: 12 Age at First : Age at Menopause: Call Center Agent History Comments: Sexual Activity: Yes; Male; INFERTILITY Contraception: Not used PAST MEDICAL HISTORY Diagnosis Date Dysthymic disorder [...] Never Smokeless tobacco: Never Vaping Use Vaping status: Never Used Substance Use Topics Alcohol use: Yes Comment: OCCASIONALLY Drug use: No REVIEW OF SYSTEMS Abdomen: No abdominal pain, nausea, vomiting, diarrhea, or constipation. No bloating, early satiety, indigestion, or increased flatulence. Bladder: No dysuria, gross hematuria, urinary frequency, urinary urgency, or incontinence Breast: No breast lumps, nipple d/c, overlying skin changes, redness or skin retraction Allergies and current medication updated:Yes SENSITIVE EXAM: The sensitive examination was discussed with the Patient or Patient's Authorized Middleware Engineer. As applicable, any other physician, advance practice provider, medical student, or other health professional student that will be observing or involved in the sensitive examination for educational or training purposes was discussed with the Patient or Authorized Middleware Engineer. The Patient or Authorized Middleware Engineer has agreed to proceed with the sensitive examination. (Sensitive examination includes inspection and/or palpation of the breasts, pelvis, prostate and anorectal regions). EXAM: BP 100/70 Ht 5' 2 (1.58m) Wt 139 lb 3.2 oz (63.1kg) LMP 01/08/2020 BMI 25.45 kg/(m2). GENERAL: pleasant, female in no apparent distress HEENT: Normocephalic, atraumatic, mucus membranes moist, and no lesions NECK: Supple, full range of motion, no adenopathy, and thyroid normal DERMATOLOGY: Normal, without lesions, non-icteric, and non-hirsute BREAST: soft, non-tender, symmetric, normal nipple-areolar complex, no lymphadenopathy, no nipple discharge, and dominant mass left breast at 6 o'clock 4 cm from nipple noted on US 2023 and dominant tender sub-areolar mass. CHEST: Normal inspiratory effort ABDOMEN: soft, non-tender, and no masses PELVIC: external genitalia normal, normal Bartholin's glands, urethra, Grayhawk's glands, no vulvar lesions, no cervical lesions, physiologic discharge present, normal appearing perineal body and perianal region, + vaginal atrophy BIMANUAL: uterus normal size, shape and consistency, no adnexal masses, and non-tender RECTOVAGINAL: deferred. NEURO: alert and oriented x3,exam grossly non-focal EXTREMITIES: normal ASSESSMENT/PLAN: 1) Health maintenance: Pap/HPV up to date. Mammogram up to date Nutrition, exercise and routine health maintenance exams reviewed. Calcium/Vitamin D supplementation information provided. Colon cancer screening: up to date with screening 2023 10 yr interval BMD: up to date 2023 osteopenia 2. Subareolar mass of left breast - ICD9: 611.72, ICD10: N63.42 - Bilateral diagnostic mammogram - [facility] - Left breast diagnostic ultrasound - [facility] 3. Mass overlapping multiple quadrants of left breast - ICD9: 611.72, ICD10: N63.25 - Bilateral diagnostic mammogram - [facility] - Left breast diagnostic ultrasound - [facility] 4) Follow up one year or sooner as needed (more content not included)... Normal [facility] Absolute neutrophil countOrd ered By: HEALTH ASSESSMENT on 04-15-2024 Neutrophils (Bld) [#/Vol] 4.0 10*3/uL 2.0-7.7 [facility] Absolute nucleated red blood cell countOrdered By: HEALTH ASSESSMENT on 04-15-2024 Nucleated RBC (Bld) [#/Vol] 0.00 10*3/uL 0-5 [facility] Albumin to globulin ratioOrd ered By: HEALTH ASSESSMENT on 04-15-2024 Albumin/Globulin [Mass ratio] 1.0 {ratio} 0.9-2.4 [facility] Band form neutrophils/100 WB C (Bld)Ordered By: HEALTH ASSESSMENT on 04-15-2024 Neutrophils/100 WBC (Bld) 55.2 % 47-70 [facility] Bilirubin Test strip Ql (U)O rdered By: HEALTH ASSESSMENT on 04-15-2024 Bilirubin Ql (U) Negative Negative [facility] Bilirubin directOrdered By: HEALTH ASSESSMENT on 04-15-2024 Bilirubin.direct [Mass/Vol] 0.26 mg/dL 0.00-0.30 [facility] Bilirubin, totalOrdered By: HEALTH ASSESSMENT on 04-15-2024 Bilirubin [Mass/Vol] 1.60 mg/dL High 0.20-1.[address] [facility] Comment on above: For patients on eltr ombopag therapy, use of Dimension [place] TBIL is not recommended. Blood urea nitrogen (BUN)/cr eatinine ratioOrdered By: HEALTH ASSESSMENT on 04-15-2024 Urea nitrogen/Creatinine [Mass ratio] 19.6 mg/mg 10-20 [facility] CBC, Employeeon 04-15-2024 Absolute Lymph 2.49 X10 3/uL Normal 0.83-4.51 [facility] Comment on above: Performed By: #### L 400.0100, L100.0200, L500.2900 #### [facility] [address] [place], [address] Absolute Neut 4.0 X10 3/uL Normal 2.0-7.7 [facility] Comment on above: Performed By: #### L 400.0100, L100.0200, L500.2900 #### [facility] [address] [place], [address] Basophils/100 WBC (Bld) 1.0 % Normal 0-1 [facility] Comment on above: Performed By: #### L 400.0100, L100.0200, L500.2900 #### [facility] [address] [place], [address] Eosinophils/100 WBC (Bld) 2.2 % Normal 0-5 [facility] Comment on above: Performed By: #### L 400.0100, L100.0200, L500.2900 #### [facility] [address] [place], [address] Erythrocyte distribution width (RBC) [Ratio] 12.8 % Normal 11.6-14.6 [facility] Comment on above: Performed By: #### L 400.0100, L100.0200, L500.2900 #### [facility] [address] [place], [address] Hematocrit (Bld) [Volume fraction] 41.7 % Normal 37-47 [facility] Comment on above: Performed By: #### L 400.0100, L100.0200, L500.2900 #### [facility] [address] [place], [address] Hemoglobin (Bld) [Mass/Vol] 13.9 g/dL Normal 12.0-15.0 [facility] Comment on above: Performed By: #### L 400.0100, L100.0200, L500.2900 #### [facility] [address] [place], [address] Lymphocytes/100 WBC (Bld) 34.2 % Normal 19-41 [facility] Comment on above: Performed By: #### L 400.0100, L100.0200, L500.2900 #### [facility] [address] [place], [address] MCH (RBC) [Entitic mass] 30.8 pg Normal 27.0-32.0 [facility] Comment on above: Performed By: #### L 400.0100, L100.0200, L500.2900 #### [facility] [address] [place], [address] MCHC (RBC) [Mass/Vol] 33.3 g/dL Normal 32-36 [facility] Comment on above: Performed By: #### L 400.0100, L100.0200, L500.2900 #### [facility] [address] [place], [address] MCV (RBC) [Entitic vol] 92.5 fL Normal 81-99 [facility] Comment on above: Performed By: #### L 400.0100, L100.0200, L500.2900 #### [facility] [address] [place], [address] Monocytes/100 WBC (Bld) 7.0 % Normal 0-10 [facility] Comment on above: Performed By: #### L 400.0100, L100.0200, L500.2900 #### [facility] [address] [place], [address] Neutrophils/100 WBC (Bld) 55.2 % Normal 47-70 [facility] Comment on above: Performed By: #### L 400.0100, L100.0200, L500.2900 #### [facility] [address] [place], [address] NRBC # 0.00 10 3/uL Normal 0-5 [facility] Comment on above: Performed By: #### L 400.0100, L100.0200, L500.2900 #### [facility] [address] [place], [address] Nucleated RBC (Bld) [#/Vol] 0 10*3/uL Normal 0-5 [facility] Comment on above: Performed By: #### L 400.0100, L100.0200, L500.2900 #### [facility] [address] [place], [address] Platelet mean volume (Bld) [Entitic vol] 8.9 fL Normal 6.2-12.0 [facility] Comment on above: Performed By: #### L 400.0100, L100.0200, L500.2900 #### [facility] [address] [place], [address] Platelets (Bld) [#/Vol] 372 10*3/uL Normal 150-450 [facility] Comment on above: Performed By: #### L 400.0100, L100.0200, L500.2900 #### [facility] [address] [place], [address] RBC (Bld) [#/Vol] 4.51 10*6/uL Normal 4.2-5.4 [facility] Comment on above: Performed By: #### L 400.0100, L100.0200, L500.2900 #### [facility] [address] [place], [address] RDW SD 43.5 fl Normal 35.1-43.9 [facility] Comment on above: Performed By: #### L 400.0100, L100.0200, L500.2900 #### [facility] [address] [place], [address] WBC (Bld) [#/Vol] 7.3 10*3/uL Normal 4.4-11.[address] [facility] Comment on above: Performed By: #### L 400.0100, L100.0200, L500.2900 #### [facility] [address] [place], [address] Carbon dioxide measurementOr dered By: HEALTH ASSESSMENT on 04-15-2024 CO2 [Moles/Vol] 23.0 mmol/L 21.0-32.0 [facility] Chloride measurementOrdered By: HEALTH ASSESSMENT on 04-15-2024 Chloride [Moles/Vol] 106 mmol/L 98-[address] [facility] Cholesterol/HDL ratioOrdered By: HEALTH ASSESSMENT on 04-15-2024 Cholesterol.total/Cholest deshaun in HDL [Mass ratio] 3.70 {ratio} [facility] [employer] Profileon Albumin [Mass/Vol] 3.7 g/dL Normal 3.2-5.[address] [facility] Comment on above: Performed By: #### L 400.0100, L100.0200, L500.2900 #### [facility] [address] [place], [address] Albumin/Globulin [Mass ratio] 1.0 {ratio} Normal 0.9-2.4 [facility] Comment on above: Performed By: #### L 400.0100, L100.0200, L500.2900 #### [facility] [address] [place], [address] ALK P 67 U/L Normal 45-117 [facility] Comment on above: Performed By: #### L 400.0100, L100.0200, L500.2900 #### [facility] [address] [place], [address] ALT [Catalytic activity/Vol] 33 U/L Normal 13-56 [facility] Comment on above: Performed By: #### L 400.0100, L100.0200, L500.2900 #### [facility] [address] [place], [address] AST [Catalytic activity/Vol] 22 U/L Normal 15-37 [facility] Comment on above: Performed By: #### L 400.0100, L100.0200, L500.2900 #### [facility] [address] [place], [address] Bilirubin [Mass/Vol] 1.60 mg/dL High 0.20-1.[address] [facility] Comment on above: Result Comment: For patients on eltrombopag therapy, use of Dimension [place] TBIL is not recommended. Performed By: #### L 400.0100, L100.0200, L500.2900 #### [facility] [address] [place], [address] Bilirubin.direct [Mass/Vol] 0.26 mg/dL Normal 0.00-0.30 [facility] Comment on above: Performed By: #### L 400.0100, L100.0200, L500.2900 #### [facility] [address] [place], [address] BUN/CRE 19.6 RATIO Normal 10-20 [facility] Comment on above: Performed By: #### L 400.0100, L100.0200, L500.2900 #### [facility] [address] [place], [address] CA,Total 9.0 mg/dL Normal 8.5-10.1 [facility] Comment on above: Performed By: #### L 400.0100, L100.0200, L500.2900 #### [facility] [address] [place], [address] Chloride [Moles/Vol] 106 mmol/L Normal 98-[address] [facility] Comment on above: Performed By: #### L 400.0100, L100.0200, L500.2900 #### [facility] [address] [place], [address] CHOL:HDL 3.70 Normal [facility] Comment on above: Performed By: #### L 400.0100, L100.0200, L500.2900 #### [facility] [address] [place], [address] Cholesterol [Mass/Vol] 206 mg/dL High 200 [facility] Comment on above: Result Comment: <200 mg/dL Desirable 200-240 mg/dL Borderline >240 mg/dL High Risk Performed By: #### L 400.0100, L100.0200, L500.2900 #### [facility] [address] [place], [address] Cholesterol in HDL [Mass/Vol] 55 mg/dL Normal [facility] Comment on above: Result Comment: The drugs N-Acetylcysteine and Metamizole may falsely depress this assay. Reference Range HDL <40 mg/dL Low HDL Cholesterol HDL >or= 60 mg/dL High HDL Cholesterol Performed By: #### L 400.0100, L100.0200, L500.2900 #### [facility] [address] [place], [address] Cholesterol in LDL [Mass/Vol] 99 mg/dL Normal 0-130 [facility] Comment on above: Performed By: #### L 400.0100, L100.0200, L500.2900 #### [facility] [address] [place], [address] Cholesterol in VLDL [Mass/Vol] 52 mg/dL High 5-40 [facility] Comment on above: Performed By: #### L 400.0100, L100.0200, L500.2900 #### [facility] [address] [place], [address] CO2 [Moles/Vol] 23.0 mmol/L Normal 21.0-32.0 [facility] Comment on above: Performed By: #### L 400.0100, L100.0200, L500.2900 #### [facility] [address] [place], [address] Creatinine [Mass/Vol] 0.92 mg/dL Normal 0.55-1.02 [facility] Comment on above: Result Comment: The validity of the calculated GFR GFRAA in patients over 70 years has not been determined. Clinical correlation is essential. Performed By: #### L 400.0100, L100.0200, L500.2900 #### [facility] [address] [place], [address] EST GFR - AA 81 mL/min Normal >60 [facility] Comment on above: Result Comment: Afri can [place]ian GFR Calc Performed By: #### L 400.0100, L100.0200, L500.2900 #### [facility] [address] [place], [address] GAP 10 Normal 5-15 [facility] Comment on above: Performed By: #### L 400.0100, L100.0200, L500.2900 #### [facility] [address] [place], [address] GFR/1.73 sq M.predicted among non-blacks MDRD (S/P/Bld) [Vol rate/Area] 67 mL/min/{1.73_m2} Normal >60 [facility] Comment on above: Result Comment: Non- GFR Calc Performed By: #### L 400.0100, L100.0200, L500.2900 #### [facility] [address] [place], [address] Globulin (S) [Mass/Vol] 3.7 g/dL Normal 2.2-4.2 [facility] Comment on above: Performed By: #### L 400.0100, L100.0200, L500.2900 #### [facility] [address] [place], [address] Glucose [Mass/Vol] 97 mg/dL Normal 74-[address] [facility] Comment on above: Performed By: #### L 400.0100, L100.0200, L500.2900 #### [facility] [address] [place], [address] LDH 171 U/L Normal 84-246 [facility] Comment on above: Performed By: #### L 400.0100, L100.0200, L500.2900 #### [facility] [address] [place], [address] Phosphate [Mass/Vol] 1.9 mg/dL Low 2.5-4.[address] [facility] Comment on above: Performed By: #### L 400.0100, L100.0200, L500.2900 #### [facility] [address] [place], [address] Potassium [Moles/Vol] 4.3 mmol/L Normal 3.5-5.1 [facility] Comment on above: Performed By: #### L 400.0100, L100.0200, L500.2900 #### [facility] [address] [place], [address] Sodium [Moles/Vol] 139 mmol/L Normal 136-[address] [facility] Comment on above: Performed By: #### L 400.0100, L100.0200, L500.2900 #### [facility] [address] [place], [address] T PROT 7.4 g/dL Normal 6.4-8.2 [facility] Comment on above: Performed By: #### L 400.0100, L100.0200, L500.2900 #### [facility] [address] [place], [address] Triglyceride [Mass/Vol] 261 mg/dL High [facility] Comment on above: Result Comment: The drugs N-Acetylcysteine and Metamizole may falsely depress this assay. Serum Triglycerides Reference Interval Normal <150 mg/dL Borderline high 150 - 199 mg/dL High 200 - 499 mg/dL Very High > or = 500 mg/dL Performed By: #### L 400.0100, L100.0200, L500.2900 #### [facility] [address] [place], [address] Urea nitrogen [Mass/Vol] 18 mg/dL Normal 7-18 [facility] Comment on above: Performed By: #### L 400.0100, L100.0200, L500.2900 #### [facility] [address] [place], [address] URIC 3.8 mg/dL Normal 2.6-6.0 [facility] Comment on above: Result Comment: The drugs N-Acetylcysteine and Metamizole may falsely depress this assay. Performed By: #### L 400.0100, L100.0200, L500.2900 #### [facility] [address] [place], [address] Erythrocyte distribution wid th ratioOrdered By: HEALTH ASSESSMENT on 04-15-2024 Erythrocyte distribution width (RBC) [Ratio] 12.8 % 11.6-14.6 [facility] Erythrocyte distribution wid th standard deviationOrdered By: HEALTH ASSESSMENT on 04-15-2024 Erythrocyte distribution width (RBC) [Entitic vol] 43.5 fL 35.1-43.[address] [facility] Estimated glomerular filtrat ion rate (GFR) AmericanOrdered By: HEALTH ASSESSMENT on 04-15-2024 Estimated GFR (MDRD) Amer 81 mL/min >60 [facility] Comment on above: GFR Calc Glomerular filtration rate ( GFR) estimationOrdered By: HEALTH ASSESSMENT on 04-15-2024 Estimated GFR (MDRD) Non-Af Amer 67 mL/min >60 [facility] Comment on above: Non- GFR Calc Glucose Ql (U)Ordered By: HE ALTH ASSESSMENT on 04-15-2024 Urine Glucose (UA) Normal mg/dl Normal [facility] Glucose measurementOrdered B y: HEALTH ASSESSMENT on 04-15-2024 Glucose [Mass/Vol] 97 mg/dL 74-[address] [facility] Hematocrit Auto (Bld) [Volum e fraction]Ordered By: HEALTH ASSESSMENT on 04-15-2024 Hematocrit (Bld) [Volume fraction] 41.7 % 37-47 [facility] Hemoglobin measurementOrdere d By: HEALTH ASSESSMENT on 04-15-2024 Hemoglobin (Bld) [Mass/Vol] 13.9 g/dL 12.0-15.0 [facility] High density lipoprotein (HD L) measurementOrdered By: HEALTH ASSESSMENT on 04-15-2024 Cholesterol in HDL [Mass/Vol] 55 mg/dL >40 [facility] Comment on above: The drugs N-Acetylcy steine and Metamizole may falsely depress this assay. Reference Range HDL <40 mg/dL Low HDL Cholesterol HDL >or= 60 mg/dL High HDL Cholesterol Ketones Test strip Ql (U)Ord ered By: HEALTH ASSESSMENT on 04-15-2024 Ketones Ql (U) Negative Negative [facility] - Chemistry and C hemistry - challengeOrdered By: HEALTH ASSESSMENT on 04-15-2024 AST [Catalytic activity/Vol] 22 U/L 15-37 [facility] Lactate dehydrogenase (LDH) measurementOrdered By: HEALTH ASSESSMENT on 04-15-2024 LDH [Catalytic activity/Vol] 171 U/L 84-246 [facility] Low density lipoprotein (LDL ) cholesterol measurementOrdered By: HEALTH ASSESSMENT on 04-15-2024 Cholesterol in LDL [Mass/Vol] 99 mg/dL 0-130 [facility] Lymphocytes Auto (Unsp spec) [#/Vol]Ordered By: HEALTH ASSESSMENT on 04-15-2024 Lymphocytes (Bld) [#/Vol] 2.49 10*3/uL 0.83-4.5 1 [facility] MCV (mean corpuscular volume ) determinationOrdered By: HEALTH ASSESSMENT on 04-15-2024 MCV (RBC) [Entitic vol] 92.5 fL 81-99 [facility] Mean corpuscular hemoglobin (MCH) determinationOrdered By: HEALTH ASSESSMENT on 04-15-2024 MCH (RBC) [Entitic mass] 30.8 pg 27.0-32.0 [facility] Mean corpuscular hemoglobin concentration (MCHC) determinationOrdered By: HEALTH ASSESSMENT on 04-15-2024 MCHC (RBC) [Mass/Vol] 33.3 g/dL 32-36 [facility] Mean platelet volume determi nationOrdered By: HEALTH ASSESSMENT on 04-15-2024 Platelet mean volume (Bld) [Entitic vol] 8.9 fL 6.2-12.0 [facility] Nitrite Test strip Ql (U)Ord ered By: HEALTH ASSESSMENT on 04-15-2024 Nitrite Ql (U) Negative Negative [facility] Nucleated red blood cell per centageOrdered By: HEALTH ASSESSMENT on 04-15-2024 Nucleated RBC/100 WBC (Bld) [Ratio] 0 % 0-5 [facility] Phosphorus measurementOrdere d By: HEALTH ASSESSMENT on 04-15-2024 Phosphorus Level 1.9 mg/dL Low 2.5-4.9 [facility] Platelet countOrdered By: HE ALTH ASSESSMENT on 04-15-2024 Platelets (Bld) [#/Vol] 372 10*3/uL 150-450 [facility] Potassium measurementOrdered By: HEALTH ASSESSMENT on 04-15-2024 Potassium [Moles/Vol] 4.3 mmol/L 3.5-5.1 [facility] Protein Test strip Ql (U)Ord ered By: HEALTH ASSESSMENT on 04-15-2024 Protein Ql (U) Negative Negative [facility] RBC Auto (Bld) [#/Vol]Ordere d By: HEALTH ASSESSMENT on 04-15-2024 RBC (Bld) [#/Vol] 4.51 10*6/uL 4.2-5.4 [facility] Serum anion gap measurementO rdered By: HEALTH ASSESSMENT on 04-15-2024 Anion gap [Moles/Vol] 10 mmol/L 5-15 [facility] Serum globulin measurementOr dered By: HEALTH ASSESSMENT on 04-15-2024 Globulin (S) [Mass/Vol] 3.7 g/dL 2.2-4.2 [facility] Serum or plasma alanine fierro otransferase (ALT) measurementOrdered By: HEALTH ASSESSMENT on 04-15-2024 ALT [Catalytic activity/Vol] 33 U/L 13-56 [facility] Serum or plasma albumin tarun urement (mass/volume)Ordered By: HEALTH ASSESSMENT on 04-15-2024 Albumin [Mass/Vol] 3.7 g/dL 3.2-5.[address] [facility] Serum or plasma alkaline jodi sphatase measurementOrdered By: HEALTH ASSESSMENT on 04-15-2024 ALP [Catalytic activity/Vol] 67 U/L 45-117 [facility] Serum or plasma calcium tarun urement (mass/volume)Ordered By: HEALTH ASSESSMENT on 04-15-2024 Calcium [Mass/Vol] 9.0 mg/dL 8.5-10.[address] [facility] Serum or plasma cholesterol measurement (mass/volume)Ordered By: HEALTH ASSESSMENT on 04-15-2024 Cholesterol [Mass/Vol] 206 mg/dL High <200 [facility] Comment on above: <200 mg/dL Desirable 200-240 mg/dL Borderline >240 mg/dL High Risk Serum or plasma creatinine m easurement (mass/volume)Ordered By: HEALTH ASSESSMENT on 04-15-2024 Creatinine [Mass/Vol] 0.92 mg/dL 0.55-1.02 [facility] Comment on above: The validity of the calculated GFR & GFRAA in patients over 70 years has not been determined. Clinical correlation is essential. Serum or plasma urea nitroge n measurement (mass/volume)Ordered By: HEALTH ASSESSMENT on 04-15-2024 Urea nitrogen [Mass/Vol] 18 mg/dL 7-18 [facility] Serum or plasma uric acid me asurement (mass/volume)Ordered By: [facility] ASSESSMENT on 04-15-2024 Urate [Mass/Vol] 3.8 mg/dL 2.6-6.0 [facility] Comment on above: The drugs N-Acetylcy steine and Metamizole may falsely depress this assay. Sodium levelOrdered By: [facility] ASSESSMENT on 04-15-2024 Sodium [Moles/Vol] 139 mmol/L 136-[address] [facility] Total proteinOrdered By: [facility] ASSESSMENT on 04-15-2024 Protein [Mass/Vol] 7.4 g/dL 6.4-8.[address] [facility] Triglycerides measurementOrd ered By: HEALTH ASSESSMENT on 04-15-2024 Triglyceride [Mass/Vol] 261 mg/dL High <199 [facility] Comment on above: The drugs N-Acetylcy steine and Metamizole may falsely depress this assay.Serum Triglycerides Reference Interval Normal <150 mg/dL Borderline high 150 - 199 mg/dL High 200 - 499 mg/dL Very High > or = 500 mg/dL Urinalysis, Employeeon 04-15 BILIRUBIN URINE Negative Normal Negative [facility] Comment on above: Order Comment: Urine , Random Performed By: #### L 400.0100, L100.0200, L500.2900 #### [facility] [address] [place], [address] Clarity (U) Clear Normal Clear [facility] Comment on above: Order Comment: Urine , Random Performed By: #### L 400.0100, L100.0200, L500.2900 #### [facility] [address] [place], [address] Color (U) Yellow Normal Yellow [facility] Comment on above: Order Comment: Urine , Random Performed By: #### L 400.0100, L100.0200, L500.2900 #### [facility] [address] [place], [address] GLUCOSE, UR Normal Normal Normal [facility] Comment on above: Order Comment: Urine , Random Performed By: #### L 400.0100, L100.0200, L500.2900 #### [facility] [address] [place], [address] KETONE UR Negative Normal Negative [facility] Comment on above: Order Comment: Urine , Random Performed By: #### L 400.0100, L100.0200, L500.2900 #### [facility] [address] [place], [address] LEUK ESTERASE 25 /ul Abnormal Negative [facility] Comment on above: Order Comment: Urine , Random Performed By: #### L 400.0100, L100.0200, L500.2900 #### [facility] [address] [place], [address] Nitrite Ql (U) Negative Normal Negative [facility] Comment on above: Order Comment: Urine , Random Performed By: #### L 400.0100, L100.0200, L500.2900 #### [facility] [address] [place], [address] OCCULT BLOOD-UR 10 /ul Abnormal Negative [facility] Comment on above: Order Comment: Urine , Random Performed By: #### L 400.0100, L100.0200, L500.2900 #### [facility] [address] [place], [address] pH UR 7.0 Normal 5.0 - 8.0 [facility] Comment on above: Order Comment: Urine , Random Performed By: #### L 400.0100, L100.0200, L500.2900 #### [facility] [address] [place], [address] PROT DIPSTX Negative Normal Negative [facility] Comment on above: Order Comment: Urine , Random Performed By: #### L 400.0100, L100.0200, L500.2900 #### [facility] [address] [place], [address] SP.GR. DIPSTX 1.010 Normal 1.002-1.030 [facility] Comment on above: Order Comment: Urine , Random Performed By: #### L 400.0100, L100.0200, L500.2900 #### [facility] [address] [place], [address] UROBILI Normal Normal Normal [facility] Comment on above: Order Comment: Urine , Random Performed By: #### L 400.0100, L100.0200, L500.2900 #### [facility] [place], [address] Urine blood detectionOrdered By: HEALTH ASSESSMENT on 04-15-2024 Urine Occult Blood 10 /ul High Negative [facility] Urine clarityOrdered By: HEA LTH ASSESSMENT on 04-15-2024 Clarity (U) Clear Clear [facility] Urine color determinationOrd ered By: HEALTH ASSESSMENT on 04-15-2024 Color (U) Yellow Yellow [facility] Urine leukocyte esterase det ection by dipstickOrdered By: HEALTH ASSESSMENT on 04-15-2024 Leukocyte esterase Test strip Ql (U) 25 /ul High Negative [facility] Urine pHOrdered By: HEALTH A SSESSMENT on 04-15-2024 pH (U) 7.0 [pH] 5.0 - 8.0 [facility] Urine specific gravity measu rementOrdered By: HEALTH ASSESSMENT on 04-15-2024 Specific gravity (U) [Rel density] 1.010 1.002-1.030 [facility] Urobilinogen Ql (U)Ordered B y: HEALTH ASSESSMENT on 04-15-2024 Urine Urobilinogen Normal mg/dl Normal [facility] Very low density lipoprotein (VLDL) cholesterol measurementOrdered By: HEALTH ASSESSMENT on 04-15-2024 VLDL Cholesterol 52 mg/dL High 5-40 [facility] White blood cell (WBC) count Ordered By: HEALTH ASSESSMENT on 04-15-2024 WBC (Bld) [#/Vol] 7.3 10*3/uL 4.4-11.[address] [facility] CNOVon 11-02-2023 CNOV Office Visit (DERMST) ---- ZAINAB QUIJANO ([id number]) 1965 F Date Time Provider Department 11/02/23 10:00 AM NURSE [facility] During your visit today, we recorded the following information about you: Zainab Flores RN 11/02/2023 12:10 PM Signed PHOTODYNAMIC THERAPY November 02, 2023 Dx: Actinic Keratosis Pt ID verified with patient: Yes Procedure verified against order and with patient: Yes Skin prepped with 70% isopropyl alcohol Yes Area treated: Full face Number of Levulan sticks applied: 1 Lot # [id number] 01/2026 Time before Blue Light exposure: 15 minutes Area treated: Full face Pt exposed to light for 30 minutes Patient reaction during treatment: None, patient tolerated procedure well. Patient reaction after treatment: None, patient tolerated procedure well. Aftercare instructions given. Patient verbalizes understanding. Follow up with Arnaldo Owen CNP . ALEX Doherty Julie, RN 11/02/2023 9:53 AM Signed After Care Instructions Photodynamic Therapy with Levulan and Blue Light Expected skin changes after PDT: The treated skin will likely turn red and may appear slightly swollen 24-48 h after treatment, but you should not see any blistering. Redness usually peaks one-to-two days after treatment and gets better within a week. Actinic keratosis lesions may not be gone until about four weeks after treatment. The skin may be itchy or change color slightly after treatment, but these changes are temporary. Photosensitivity: Levulan remains in the skin for 48 hours, so further reactions (redness and a tingling or burning sensation) can be caused by light exposure if one is not careful. Therefore, for about 2 days after the treatment, you should take care to protect the treated areas from light. Stay out of strong, direct light. Stay indoors as much as possible. Wear protective clothing and wide-brimmed hats to avoid sunlight when outdoors. Avoid beaches, snow, light colored concrete, or other reflective surfaces. After Care steps for you to do at home: Again, avoid direct light for 48 hours. Gently wash area twice a day with Cetaphil, Neutrogena or other mild cleanser. Do not scrub! After cleansing, use Aquaphor or Vaseline twice a day to keep the area moist and free of crust. Apply the topical steroid ointment that your doctor has prescribed for you (or alternatively, you can use 1% hydrocortisone ointment available at any pharmacy) to the entire treated area, twice a day as needed for 2-4 days, to help decrease redness and irritation. Apply the steroid BEFORE applying Aquaphor ointment, not afterwards. Apply cool compresses as needed for comfort during the first few days. After day 3, gently exfoliate with a soft washcloth and warm water twice a day. Then apply either Aquaphor or Vaseline. To address swelling and redness, you may also take qyoo-rji-rjixjmg oral medications: Claritin (loratidine) 10 mg in the morning, Benadryl (diphenhydramine) 25-50 mg nightly (may cause drowsiness) and/or Ibuprofen as directed. If you absolutely must go outdoors during the first 48 hours, cover yourself with a broad-brimmed hat and use Neutrogena sensitive skin (chemical free) sunscreen SPF 30, or other titanium-dioxide type of sunscreen, in a thick layer to protect you from sunlight If you have questions or concerns, call the following number(s): [facility] [phone] Referring Provider: ARNALDO OWEN [[id number]] Allergies As of Date: 11/02/2023 (No Known Allergies) Date Reviewed: 11/02/2023 Reviewed by: Zainab Flores RN - Fully Assessed Reason for Visit: Light Treatments [1093] Primary Visit Diagnosis:Actinic keratosis [L57.0] Order(s):[] aminolevulinic acid (LEVULAN) 20% topical solutionDisp: Rfl: triamcinolone acetonide (KENALOG) 0.1 % ointmentApply to stinging/burning areas of face twice daily. Do not use for more than one week on your face.Disp: 30 gRfl: 0 Prescriptions as of 11/02/2023 - triamcinolone acetonide (KENALOG) 0.1 % ointment Apply to stinging/burning areas of face twice daily. Do not use for more than one week on your face. - estradiol (CLIMARA) 0.025 mg/24 hr Apply 1 Patch as directed one time a week. - progesterone micronized (PROMETRIUM) 100 mg capsule Take 1 capsule by mouth daily at bedtime. - alendronate (FOSAMAX) 70 mg tablet PLEASE SEE ATTACHED FOR DETAILED DIRECTIONS - magnesium oxide 400 mg magnesium tab Take 1 tablet by mouth once daily. - DOCOSAHEXANOIC ACID/EPA (FISH OIL ORAL) Take by mouth. Problem List As Of Date 11/02/2023 Noted Resolved Migraines [G43.909] 10/14/2008 Hypercholesteremia [E78.00] 08/16/2016 Other instructions from your clinician: After Care Instructions Photodynamic Therapy with Levulan and Blue Light Expected skin changes after PDT: The treate (more content not included)... Normal [facility] CNOVon 06-27-2023 CNOV Office Visit (DERMST) ---- ZAINAB QUIJANO ([id number]) 1965 F Date Time Provider Department 06/27/23 3:00 PM ARNALDO OWEN During your visit today, we recorded the following information about you: Arnaldo Owen APRN.CNP 07/05/2023 4:42 PM Signed Department of Dermatology Arnaldo Owen APRN.CNP Last visit in Dermatology: Visit date not found Objective/Assessmen t/Plan 1. AK (actinic keratosis) Head - Anterior (Face) Erythematous, hyperkeratotic papules Discussed treatment options, including LN2 vs efudex vs PDT. Patient elects PDT R/b/a for the treatment/medicatio n(s) including possible side effects discussed and reviewed with patient. PDT 2020 - Head - Anterior (Face) 2. Multiple benign nevi Multiple scattered pink papules with flaccid epidermis and small, symmetric garcia to brown macules with uniform pigmentation over the trunk and extremities. Observational course. Monitor for growth and changes. 3. Seborrheic keratosis Stuck-on verrucous, variably pigmented papules and plaques. Scattered to the trunk, bilateral upper extremities, bilateral lower extremities. Observational course. Monitor for growth and changes. 4. Lentigines Densely scattered light garcia macules and small patches on all sun exposed areas. Observational course. Monitor for growth and changes. 5. Bravo angioma Bravo-red papules scattered to the trunk, bilateral upper extremities, bilateral lower extremities. Observational course. Monitor for growth and changes. 6. Skin cancer screening The patient's skin was examined for evidence of cutaneous malignancy. The nature of sun-induced photo-aging and skin cancers is discussed. Sun avoidance, protective clothing, and the use of 30-SPF sunscreens is advised. Patient is instructed to perform regular self exams. Patient instructed to observe for changing, symptomatic, or new skin lesions and encouraged to contact our office for evaluation. Follow-up as noted below or as needed. ------- Chief Complaint: Patient presents with: Full Body Skin Check Subjective and Objective HPI: Zainab Quijano is a 57 year old female who presents for: Skin check. Desires: Total body skin check in female excluding genitals (patient has periodic examination by PCP and declines this exam) History of skin cancer?: No Areas of particular concern?: No Past medical history is reviewed. Medication list is reviewed. Physical Exam included: Scalp, face, ears, neck, chest, back, abdomen, bilateral upper extremities, bilateral lower extremities, buttocks, hands, feet, nails and hair Intake information obtained by RUY Sanon APRN.Arnaldo Frances APRN.ASHLEY 06/27/2023 3:39 PM Signed [employer] [employer]AFET[employer] Thank you for allowing me to examine you for signs of skin cancer today. We had an opportunity to discuss my findings and any treatments I recommended. I believe that there are several steps that a person can do to help prevent skin cancers and to detect them at an early, treatable stage: 1. I highly recommend that once a month you perform your own complete skin check looking for changing or unusual spots. Use a wall-mounted mirror and a hand mirror to assist in seeing body areas that are difficult to see otherwise. If you have a family member that can assist, this is often helpful. Additional information can be obtained at: www.skincancer.org/ djqt-vfwaxm-gvddpli tion/early-detectio n 2. In many cases, skin cancer can be prevented. The best way to protect yourself is to avoid too much sun and sunburns. Health care providers believe that ultraviolet rays (UV rays) from the sun damage the skin and over time lead to skin cancer. Here are ways to protect yourself: -Don't spend long periods of time in direct sunlight. -Wear hats with brims to protect your face and ears. -Wear long-sleeved shirts and pants to protect your arms and legs. -Use broad spectrum sunscreens with a SPF (skin protection factor) of 30 or higher that protect against burning and tanning rays. Apply the lotion 30 minutes before you go outside. (Broad-spectrum sunscreens protect against UV-B and UV-A rays.) -Wear sunglasses to protect your eyes. -Use a lip balm with sunscreen. -Avoid the sun between 10am and 4pm. -Show any changing mole to your health care provider. Allergies As of Date: 06/27/2023 (No Known Allergies) Date Reviewed: 06/27/2023 Reviewed by: Erma Ghosh MA - Fully Assessed Reason for Visit: Full Body Skin Check [1445] Primary Visit Diagnosis:AK (actinic keratosis) [L57.0] Other Visit Diagnoses:Multiple benign nevi [D22.9] Seborrheic keratosis [L82.1] Lentigines [L81.4] Bravo angioma [D18.01] Skin cancer screening [Z12.83] Order(s):PHOTODYNAM IC THERAPY [5005009] Order #: [id number] Pres (more content not included)... Normal [facility] 36on 05-25-2023 36 Placed call to patient. Two patient identifers confirmed. Was able to speak to patient. All concerns in message have been addressed. No questions at this time. Call ended Normal [facility] 36 ----- Message from Frank Gonsalez DO sent at 05/24/2023 5:28 PM EDT ----- Fosamax prescribed, will need recheck bone density in 2 years ----- Message ----- From: Yenifer Castro MA Sent: 05/24/2023 8:37 AM EDT To: Frank Gonsalez DO Patient says she consents to the medication and would like it sent to [facility] in [place]. ----- Message ----- From: Frank Gonsalez DO Sent: 05/23/2023 10:45 PM EDT To: Yenifer Castro MA Bone density reviewed, patient with osteopenia. She certainly has to take calcium 800 mg a day with vitamin D3 2000 units/day. She should consider and once a week medicine called Fosamax or Actonel that is taken to help prevent progression to osteoporosis. Continue weightbearing exercise 150 minutes a week. Let me know if she consents to beginning 1 of those meds. Normal [facility] Serum or plasma thyroid stim ulating hormone (TSH) measurement (units/volume)Ordered By: Frank Gonsalez on 05-05-2023 TSH Qn 1.32 uIU/mL 0.358-3.74 [facility] Serum or plasma thyroxine (T 4) measurement (mass/volume)Ordered By: Frank Gonsalez on 05-05-2023 T4 [Mass/Vol] 7.6 ug/dL 4.8-13.9 [facility] Serum or plasma triiodothyro nine measurement by immunoassay (mass/volume)Ordered By: Frank Gonsalez on 05-05-2023 T3 IA [Mass/Vol] 0.96 ng/mL 0.6-1.81 [facility] Office Visiton 04-25-2023 Follow-up visit [id number] Zainab Quijano 1965 F Date Provider Department Center 04/25/2023 [id number] CRAFT [facility] Family History Problem Relation Age of Onset Breast cancer Mother 60 Dementia Mother 72 Comments: alive age 81 Prostate cancer Father Hyperlipidemia Father Hypertension Father Comments: alive age 83 Bladder Cancer Father No Known Problems Sister No Known Problems Sister No Known Problems Sister Hyperlipidemia Brother Dementia Maternal Grandmother Comments: late 70s Stroke Maternal Grandfather Comments: early 70s Other Paternal Grandmother Comments: age 93 Diabetes Paternal Grandmother Comments: in 70s Coronary artery disease Paternal Grandfather Comments: late 60s Family Status - Relation Status Age at Mother Alive Father Alive Sister Alive Sister Alive Sister Alive Brother Alive Maternal Grandmother Maternal Grandfather Paternal Grandmother Paternal Grandfather Level of Service:65202 [place] OFFICE/OUTPATIENT ESTABLISHED MOD MDM 30 MIN Reason for Visit and Comments: Follow-up [968189] - Med check Normal [facility] PATINSon 04-25-2023 PATINS Lower fat meals, Follow low carb diet and cardio exercise 150 min/week Normal [facility] Progress Noteon 04-25-2023 Progress Note [facility] [address] [facility] [id number] Visit type: Established Patient Reason for Visit: Follow-up (Med check) Assessment / Plan: Zainab was seen today for follow-up. Diagnoses and all orders for this visit: Hypercholesterolemi a (Primary) Comments: Recurrent, patient deferring statin therapy at this time. Weight loss cardio exercise and low-fat meals Orders: - TSH; Future - T3; Future - TSH - T3 Family history of breast cancer in mother Osteoporosis screening Comments: Bone density, vitamin D3 and calcium Orders: - DEXA bone density axial skeleton; Future Weight gain - TSH; Future - T4; Future - T3; Future - TSH - T4 - T3 Family history of Alzheimer's disease Comments: Discussed minimizing risk for microvessel disease. Possible statin therapy. Fish oil supplements baby aspirin 35 Minutes spent on reviewing pertinent history, patient interview, physical exam, discussion of diagnosis and treatment and work-up options. Subjective: Patient ID: Zainab Quijano is a 57 y.o. female. HPI healthy non-smoker with history of hyperlipidemia presents for overall checkup. Recent SHIP SCALER exam done including mammogram, breast ultrasound. Recommend recheck in 1 year. Colonoscopy up-to-date from a few weeks ago. Recheck due in 10 years. Only ongoing concern is LDL over goal of less than 100. Recent study at 137. Fair HDL. She does not smoke or drink alcohol in excess. No history of diabetes or hypertension. She does have a family history of premature Alzheimer's in her mom and her maternal grandma. Review of Systems overall feeling well. No recent earache or sore throat or cough. 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 She enjoys her 5 healthy grandkids. Trying to eat better and plans to lose some weight and exercise more. Denies exertional chest pain jaw pain or dyspnea. No PND orthopnea claudication or edema. No heartburn or abdominal pain. Bowels are regular. No melena or blood. No postmenopausal bleeding. Rare arthralgia. No skin concerns. No anxiety or depression No Known Allergies Current Outpatient Medications on File Prior to Visit Medication Sig Dispense Refill magnesium oxide (Mag-Ox) 400 (240 Mg) MG tablet Take 400 mg by mouth daily. No current facility-administer ed medications on file prior to visit. Patient Active Problem List Diagnosis Hypercholesterolemi a Family history of breast cancer in mother Abnormality of left breast on screening mammography Family history of Alzheimer's disease Social History Tobacco Use Smoking status: Never Smokeless tobacco: Never Substance Use Topics Alcohol use: Yes Alcohol/week: 3.0 standard drinks of alcohol Past Surgical History: Procedure Laterality Date COLONOSCOPY 03/2023 Dr. Collier- neg- due 2033 LAPAROSCOPY DIAGNOSTIC / BIOPSY / ASPIRATION / LYSIS infertility workup TONSILLECTOMY AND ADENOIDECTOMY (HISTORICAL) Family History Problem Relation Name Age of Onset Breast cancer Mother Siena Zavala 60 Dementia Mother Siena Zavala 72 alive age 81 Prostate cancer Father Raman Palomares Hyperlipidemia Father Raman Palomares Hypertension Father Raman Palomares alive age 83 Bladder Cancer Father Raman Palomares No Known Problems Sister No Known Problems Sister No Known Problems Sister Hyperlipidemia Brother Dementia Maternal Grandmother late 70s Stroke Maternal Grandfather early 70s Other Paternal Grandmother age 93 Diabetes Paternal Grandmother in 70s Coronary artery disease Paternal Grandfather late 60s Objective: BP 101/74 Pulse 107 Temp 36.3 ?C (97.3 ?F) (Temporal) Ht 5' 2 (1.575 m) Wt 138 lb (62.6 kg) SpO2 96% BMI 25.24 kg/m? Physical Exam very pleasant cooperative. Engaging. The physical exam is generally normal. Patient appears well, alert and oriented x 3, pleasant, cooperative. Vitals are as noted. No carotid bruits. Neck supple, no abnormal adenopathy, thyroid lesions or masses. Ears, nose and throat are normal without acute findings. Lungs are clear to auscultation. Heart is regular, without murmurs, gallops or ectopy. Abdomen is soft, non tender, without masses, hepatosplenomegaly, or bruits. Normal BS evident. Extremities are normal without edema. Peripheral pulses are fair. No worrisome skin lesions. Screening neurological exam is normal without focal deficits. Normal [facility] Absolute lymphocyte countOrd ered By: HEALTH ASSESSMENT on 03-10-2023 Lymphocytes Auto (Unsp spec) [#/Vol] 3.11 10*3/uL 0.83-4.51 [facility] Absolute reticulocyte countO rdered By: HEALTH ASSESSMENT on 03-10-2023 Reticulocytes (Bld) [#/Vol] 0.00 10*3/uL 0-5 [facility] Basophil percentageOrdered B y: HEALTH ASSESSMENT on 03-10-2023 Basophil percentage 4.1 mg/dL 2.5-4.9 [facility] Bilirubin [Mass/Vol] 0.90 mg/dL 0.20-1.[address] [facility] Comment on above: For patients on eltr ombopag therapy, use of Dimension [place] TBIL is not recommended. Chloride [Moles/Vol] 106 mmol/L 98-[address] [facility] Cholesterol [Mass/Vol] 224 mg/dL <200 [facility] Comment on above: <200 mg/dL Desirable 200-240 mg/dL Borderline >240 mg/dL High Risk Glucose [Mass/Vol] 108 mg/dL 74-[address] [facility] Comment on above: Fasting Glucose resu lt from 100 to 125 mg/dL suggests IMPAIRED HOMEOSTASIS per A.D.A. criteria. LDH [Catalytic activity/Vol] 194 U/L 84-246 [facility] Neutrophils (Bld) [#/Vol] 6.6 10*3/uL 2.0-7.7 [facility] Potassium [Moles/Vol] 4.0 mmol/L 3.5-5.1 [facility] Protein [Mass/Vol] 7.4 g/dL 6.4-8.[address] [facility] Sodium [Moles/Vol] 140 mmol/L 136-[address] [facility] Triglyceride [Mass/Vol] 260 mg/dL <199 [facility] Comment on above: The drugs N-Acetylcy steine and Metamizole may falsely depress this assay.Serum Triglycerides Reference Interval Normal <150 mg/dL Borderline high 150 - 199 mg/dL High 200 - 499 mg/dL Very High > or = 500 mg/dL WBC (Bld) [#/Vol] 11.0 10*3/uL 4.4-11.0 [facility] Bilirubin Test strip Ql (U)O rdered By: HEALTH ASSESSMENT on 03-10-2023 Bilirubin Ql (U) Negative Negative [facility] Blood erythrocytes count (nu mber/volume)Ordered By: HEALTH ASSESSMENT on 03-10-2023 RBC (Bld) [#/Vol] 4.04 10*6/uL 4.2-5.4 [facility] Blood hemoglobin measurement (mass/volume)Ordered By: HEALTH ASSESSMENT on 03-10-2023 Hemoglobin (Bld) [Mass/Vol] 12.2 g/dL 12.0-15.0 [facility] Blood platelet mean volumeOr dered By: HEALTH ASSESSMENT on 03-10-2023 Platelet mean volume (Bld) [Entitic vol] 8.6 fL 6.2-12.0 [facility] Determination of erythrocyte mean corpuscular volume (MCV)Ordered By: HEALTH ASSESSMENT on 03-10-2023 MCV (RBC) [Entitic vol] 91.1 fL 81-99 [facility] Direct bilirubinOrdered By: HEALTH ASSESSMENT on 03-10-2023 Bilirubin.direct [Mass/Vol] 0.14 mg/dL 0.00-0.30 [facility] Hematocrit Auto (Bld) [Volum e fraction]Ordered By: HEALTH ASSESSMENT on 03-10-2023 Hematocrit (Bld) [Volume fraction] 36.8 % 37-47 [facility] Ketones Test strip Ql (U)Ord ered By: HEALTH ASSESSMENT on 03-10-2023 Ketones Ql (U) Negative Negative [facility] Laboratory - Chemistry and C hemistry - challengeOrdered By: HEALTH ASSESSMENT on 03-10-2023 ALP [Catalytic activity/Vol] 90 U/L 45-117 [facility] ALT [Catalytic activity/Vol] 44 U/L 13-56 [facility] Cholesterol.total/Cholest deshaun in HDL [Mass ratio] 5.00 {ratio} [facility] CO2 [Moles/Vol] 25.0 mmol/L 21.0-32.0 [facility] Globulin (S) [Mass/Vol] 3.6 g/dL 2.2-4.2 [facility] Urea nitrogen/Creatinine [Mass ratio] 19.9 mg/mg 10-20 [facility] Laboratory - Hematology and Cell countsOrdered By: HEALTH ASSESSMENT on 03-10-2023 Erythrocyte distribution width (RBC) [Entitic vol] 42.6 fL 35.1-43.[address] [facility] Erythrocyte distribution width (RBC) [Ratio] 13.0 % 11.6-14.6 [facility] MCH (RBC) [Entitic mass] 30.2 pg 27.0-32.0 [facility] Nucleated RBC/100 WBC (Bld) [Ratio] 0 % 0-5 [facility] MCHC Auto (RBC) [Mass/Vol]Or dered By: HEALTH ASSESSMENT on 03-10-2023 MCHC (RBC) [Mass/Vol] 33.2 g/dL 32-36 [facility] Nitrite Test strip Ql (U)Ord ered By: HEALTH ASSESSMENT on 03-10-2023 Nitrite Ql (U) Negative Negative [facility] No Panel InformationOrdered By: HEALTH ASSESSMENT on 03-10-2023 Estimated GFR (MDRD) Amer 83 mL/min >60 [facility] Comment on above: GFR Calc Estimated GFR (MDRD) Non-Af Amer 69 mL/min >60 [facility] Comment on above: Non- GFR Calc Platelets bldOrdered By: [facility] ASSESSMENT on 03-10-2023 Platelets (Bld) [#/Vol] 430 10*3/uL 150-450 [facility] Protein Test strip Ql (U)Ord ered By: HEALTH ASSESSMENT on 03-10-2023 Protein Ql (U) Negative Negative [facility] Segmented neutrophils/100 WB C Auto (Bld)Ordered By: HEALTH ASSESSMENT on 03-10-2023 Segmented neutrophils/100 WBC (Bld) 60.2 % 47-70 [facility] Serum or plasma albumin tarun urement (mass/volume)Ordered By: HEALTH ASSESSMENT on 03-10-2023 Albumin [Mass/Vol] 3.8 g/dL 3.2-5.[address] [facility] Serum or plasma albumin/glob ulin mass ratioOrdered By: HEALTH ASSESSMENT on 03-10-2023 Albumin/Globulin [Mass ratio] 1.1 {ratio} 0.9-2.4 [facility] Serum or plasma calcium tarun urement (mass/volume)Ordered By: HEALTH ASSESSMENT on 03-10-2023 Calcium [Mass/Vol] 9.4 mg/dL 8.5-10.[address] [facility] Serum or plasma cholesterol in HDL measurement (mass/volume)Ordered By: HEALTH ASSESSMENT on 03-10-2023 Cholesterol in HDL [Mass/Vol] 45 mg/dL >40 [facility] Comment on above: The drugs N-Acetylcy steine and Metamizole may falsely depress this assay. Reference Range HDL <40 mg/dL Low HDL Cholesterol HDL >or= 60 mg/dL High HDL Cholesterol Serum or plasma cholesterol in VLDL measurement (mass/volume)Ordered By: HEALTH ASSESSMENT on 03-10-2023 Cholesterol in VLDL [Mass/Vol] 52 mg/dL 5-40 [facility] Serum or plasma creatinine m easurement (mass/volume)Ordered By: HEALTH ASSESSMENT on 03-10-2023 Creatinine [Mass/Vol] 0.91 mg/dL 0.55-1.02 [facility] Comment on above: The validity of the calculated GFR & GFRAA in patients over 70 years has not been determined. Clinical correlation is essential. Serum or plasma low density lipoprotein (LDL) cholesterol measurement (mass/volume)Ordered By: HEALTH ASSESSMENT on 03-10-2023 Cholesterol in LDL [Mass/Vol] 127 mg/dL 0-130 [facility] Serum or plasma urea nitroge n measurement (mass/volume)Ordered By: HEALTH ASSESSMENT on 03-10-2023 Urea nitrogen [Mass/Vol] 18 mg/dL 7-18 [facility] Serum or plasma uric acid me asurement (mass/volume)Ordered By: HEALTH ASSESSMENT on 03-10-2023 Urate [Mass/Vol] 3.5 mg/dL 2.6-6.0 [facility] Comment on above: The drugs N-Acetylcy steine and Metamizole may falsely depress this assay. Thin prep Papanicolaou smear with manual screeningOrdered By: HEALTH ASSESSMENT on 03-10-2023 Thin prep Papanicolaou smear with manual screening 24 U/L 15-37 [facility] Thin prep Papanicolaou smear with manual screening 9 5-15 [facility] Urine blood detectionOrdered By: HEALTH ASSESSMENT on 03-10-2023 RBC Ql (U) 10 /ul Negative [facility] Urine clarityOrdered By: [facility] ASSESSMENT on 03-10-2023 Clarity (U) Sl. Cloudy Clear [facility] Urine color determinationOrd ered By: HEALTH ASSESSMENT on 03-10-2023 Color (U) Yellow Yellow [facility] Urine glucose detectionOrder ed By: HEALTH ASSESSMENT on 03-10-2023 Glucose Ql (U) Normal mg/dl Normal [facility] Urine leukocyte esterase det ection by dipstickOrdered By: HEALTH ASSESSMENT on 03-10-2023 Leukocyte esterase Test strip Ql (U) 25 /ul Negative [facility] Urine pHOrdered By: HEALTH A SSESSMENT on 03-10-2023 pH (U) 5.0 [pH] 5.0 - 8.0 [facility] Urine specific gravity measu rementOrdered By: HEALTH ASSESSMENT on 03-10-2023 Specific gravity (U) [Rel density] 1.015 1.002-1.030 [facility] Urobilinogen Auto test strip Ql (U)Ordered By: HEALTH ASSESSMENT on 03-10-2023 Urobilinogen Ql (U) Normal mg/dl Normal [facility] Vital Signs Date Time Vital Sign Value Performing Clinician Juan Antonio mckeon 04-17-2024 15:50-0500 Body height 157.5 cm Aliya Keating APRN.CNP Work Phone: [facility] 04-17-2024 15:50-0500 Body mass index (BMI) [Ratio] 25.46 kg/m2 Aliya Keating APRN.CNP Work Phone: [facility] 04-17-2024 15:50-0500 Body weight 63.14 kg Aliya Keating APRN.CNP Work Phone: [facility] 04-17-2024 15:50-0500 Diastolic blood pressure 70 mm[Hg] Aliya Keating APRN.AUTISM SPECIALIST Work Phone: [facility] 04-17-2024 15:50-0500 Systolic blood pressure 100 mm[Hg] Aliya Keating APRN.CNP Work Phone: [facility] 02-27-2024 16:30-0500 Body height 157.5 cm Frank Gonsalez DO Work Phone: [facility] 04-25-2023 16:30-0500 Body mass index (BMI) [Ratio] 25.24 kg/m2 Frank Gonsalez DO Work Phone: [facility] 04-25-2023 16:30-0500 Body temperature 97.3 [degF] Frank Gonsalez DO Work Phone: [facility] 04-25-2023 16:30-0500 Body weight 62.6 kg Frank Gonsalez DO Work Phone: [facility] 04-25-2023 16:30-0500 Diastolic blood pressure 74 mm[Hg] Frank Gonsalez DO Work Phone: [facility] 04-25-2023 16:30-0500 Heart rate 107 /min Frank Gonsalez DO Work Phone: [facility] 04-25-2023 16:30-0500 SaO2% (BldA) [Mass fraction] 96 % Frank Gonsalez DO Work Phone: [facility] 04-25-2023 16:30-0500 Systolic blood pressure 101 mm[Hg] Frank Gonsalez DO Work Phone: [facility] 04-10-2023 12:19-0500 Body temperature 97.5 [degF] Dr. Timbo Toney Work Phone: [facility] 04-10-2023 12:19-0500 Diastolic blood pressure 81 mm[Hg] Dr. Timbo Toney Work Phone: [facility] 04-10-2023 12:19-0500 Heart rate 85 /min Dr. Timbo Toney Work Phone: [facility] 04-10-2023 12:19-0500 Respiratory rate 18 /min Dr. Timbo Toney Work Phone: [facility] 04-10-2023 12:19-0500 SaO2% (BldA) [Mass fraction] 99 % Dr. Timbo Toney Work Phone: [facility] 04-10-2023 12:19-0500 Systolic blood pressure 105 mm[Hg] Dr. Timbo Toney Work Phone: [facility] 04-10-2023 10:51-0500 Body height 157.[address] Timbo Toney Work Phone: [facility] 04-10-2023 10:51-0500 Body mass index (BMI) [Ratio] 25 kg/m2 Dr. Timbo Toney Work Phone: [facility] 04-10-2023 10:51-0500 Body weight [address] Timbo Toney Work Phone: [facility] 04-07-2023 12:41-0500 Body height 154.9 cm Estrellita Mcneal MD Work Phone: [facility] 04-07-2023 12:41-0500 Body weight 63.5 kg Estrellita Mcneal MD Work Phone: [facility] 04-07-2023 12:41-0500 Diastolic blood pressure 72 mm[Hg] Estrellita Mcneal MD Work Phone: [facility] 04-07-2023 12:41-0500 Systolic blood pressure 110 mm[Hg] Estrellita Mcneal MD Work Phone: [facility] 03-29-2023 10:01-0500 Body mass index (BMI) [Ratio] 24.7 kg/m2 Dr. Timbo Toney Work Phone: [facility] 03-29-2023 10:01-0500 Body weight [address] Timbo Toney Work Phone: [facility] Encounters Encounter Date Encounter Type Care Provider Facility Start: 07-21-2025 ambulatory Frank Arriaga y:[facility] Start: 08-19-2024 ambulatory RAJENDRA HANNA Facility :[facility] Start: 06-07-2024 End: 06-07-2024 Refill Estrellita Mcneal MD Work Phone: OB/Gynecology Comment on above: Refill Request Start: 06-07-2024 End: 06-07-2024 Refill Aliya Keating APRN.AUTISM SPECIALIST Work Phone: OB/Gynecology Start: 05-16-2024 End: 05-16-[address] Frank Gonsalez DO Work Phone: [facility] Work Phone: Start: 05-16-2024 End: 05-16-2024 Patient encounter procedure Aliya Keating NP-C -Outpatient Breast Imaging Work Phone: Start: 05-16-2024 End: 05-16-2024 Chart abstracting Aliya eKating APRN.AUTISM SPECIALIST Work Phone: OB/Gynecology Comment on above: Mammogram Abnormalit y Start: 05-16-2024 End: 05-16-2024 ambulatory Aliya Keating NP Facility:[facility] Start: 04-25-2024 ambulatory Aliya Keating NP Facility :[facility] Start: 04-18-2024 End: 04-18-2024 Telephone encounter Aliya Keating APRN.CNP Work Phone: OB/Gynecology Start: 04-17-2024 End: 04-17-2024 Patient encounter procedure Aliya Keating APRN.CNP Work Phone: OB/Gynecology Comment on above: Encounter for gyneco logical examination with abnormal finding (Primary Dx); Subareolar mass of left breast; Mass overlapping multiple quadrants of left breast Start: 04-17-2024 End: 04-17-2024 Patient encounter status Aliya Keating APRN.AUTISM SPECIALIST Work Phone: [facility] Work Phone: Start: 04-17-2024 End: 04-17-2024 ambulatory ALIYA KEATING Facility:[facility] Start: 04-17-2024 Encounter for gyneco logical examination (general) (routine) with abnormal findings ALIYA KEATING [facility] Start: 04-15-2024 Registered Referred HEALTH RIS K ASSESSMENT -Laboratory Work Phone: Start: 04-15-2024 ambulatory Health Risk Assessment Facility:[facility] Start: 02-29-2024 End: 03-01-2024 ambulatory Estrellita Mcneal MD Work Phone: OB/Gynecology Comment on above: Estradiol patch Start: 02-15-2024 End: 02-15-2024 Refill Estrellita Mcneal MD Work Phone: OB/Gynecology Comment on above: Refill Request Start: 12-14-2023 End: 12-14-2023 Refill Liliana De Leon CODE AND TEST CLERK.CNM Work Phone: OB/Gynecology Comment on above: Refill Request Start: 11-24-2023 End: 11-24-2023 ambulatory Liliana De Leon CODE AND TEST CLERK.CNM Work Phone: OB/Gynecology Start: 11-14-2023 End: 11-14-2023 Refill Estrellita Mcneal MD Work Phone: OB/Gynecology Comment on above: Refill Request Start: 11-02-2023 End: 11-02-2023 [facility] Start: 11-02-2023 End: 11-02-2023 Patient encounter procedure Nurse [facility] Stro Work Phone: Dermatology Comment on above: Actinic keratosis (P rimary Dx) Start: 08-15-2023 Refill Estrellita Jules Work Phone: OB/Gynecology Comment on above: Refill Request Start: 06-27-2023 End: 06-27-2023 ambulatory ARNALDO OWEN Facility:[facility] Start: 06-27-2023 End: 06-27-2023 Patient encounter procedure Arnaldo Owen CODE AND TEST CLERK.AUTISM SPECIALIST Work Phone: Dermatology Comment on above: AK (actinic keratosi s) (Primary Dx); Multiple benign nevi; Seborrheic keratosis; Lentigines; Bravo angioma; Skin cancer screening Start: 06-12-2023 ambulatory Estrellita Jules Work Phone: [facility] Start: 06-12-2023 Follow-up encounter Estrellita perez MD Work Phone: OB/Gynecology Comment on above: Follow up report aft er starting new meds Start: 05-24-2023 Orders Only Frank Claudio Kristy edmondson DO Work Phone: [facility] Start: 05-11-2023 End: 05-11-[address] Timbo Toney Work Phone: [facility] Work Phone: Start: 05-11-2023 End: 05-11-[address] Timbo Toney Work Phone: [facility]-Outpatient Bone Densitometry Work Phone: Start: 05-05-2023 End: 05-05-[address] Timbo Toney Work Phone: [facility] Work Phone: Start: 05-05-2023 End: 05-05-[address] Timbo Toney Work Phone: [facility]-Laboratory Work Phone: Start: 04-25-2023 End: 04-25-2023 ambulatory [facility] Start: 04-25-2023 End: 04-25-2023 Encounter for general adult medical examination without abnormal findings [facility] Start: 04-25-2023 End: 04-25-2023 Office outpatient visit 25 minutes Frank Gonsalez DO Work Phone: [facility] Comment on above: Hypercholesterolemia (Primary Dx); Family history of breast cancer in mother; Osteoporosis screening; Weight gain; Family history of Alzheimer's disease Start: 04-20-2023 ambulatory Estrellita Jules Work Phone: OB/Gynecology Comment on above: Mammogram Start: 04-13-2023 End: 04-13-[address] Timbo Toney Work Phone: [facility] Work Phone: Start: 04-13-2023 End: 04-13-[address] Timbo Toney Work Phone: [facility]-Outpatient Breast Imaging Work Phone: Start: 04-10-2023 Non-patient / Non-visit Dr. Jean Claude Toney Work Phone: [facility] Start: 04-10-2023 End: 04-10-2023 Admission to same day surgery center Dr. Timbo Toney Work Phone: [facility]-Endoscopy Work Phone: Start: 04-10-2023 End: 04-10-[address] Timbo Toney Work Phone: [facility] Work Phone: Start: 04-07-2023 ambulatory Estrellita Jules Work Phone: OB/Gynecology Comment on above: HRT Start: 04-07-2023 E-mail encounter fro m caregiver Estrellita Mcneal MD Work Phone: [facility] Start: 04-07-2023 End: 04-07-2023 Patient encounter procedure Estrellita Mcneal MD Work Phone: OB/Gynecology Comment on above: Encounter for gyneco logical examination (general) (routine) without abnormal findings (Primary Dx); Headaches; Menopausal symptoms Start: 04-07-2023 End: 04-07-2023 Patient encounter status Estrellita Mcneal MD Work Phone: [facility] Start: 03-29-2023 Non-patient / Non-visit Dr. Jean Claude Toney Work Phone: [facility] Work Phone: Start: 03-10-[address] Timbo ramos Work Phone: [facility]-Employee Health Procedures Date Procedure Procedure Detail Performing Clinician Start: 05-16-2024 Bilateral mammography Jorge A Gonsalez DO Work Phone: Start: 05-16-[address] Frank Gonsalez DO Work Phone: Start: 05-11-2023 Dual energy X-ray absorptiometry Dr. Timbo Toney Work Phone: Start: 04-13-[address] Chalo Toney Work Phone: Start: 04-13-2023 End: 04-13-[address] Timbo Toney Work Phone: Start: 04-13-[address] Timbo Toney Work Phone: Start: 04-10-2023 End: 04-10-[address] Timbo Toney Work Phone: Start: 08-16-2016 Lipid 1996 panel - S alberta or Plasma Estrellita Mcneal MD Work Phone: Plan of Treatment Date Care Activity Detail Author Start: 04-10-2033 Screening for malignant neoplasm of colon [facility] Start: 2027 RSV Immunization aged 60 or older (1 - 1-dose 60+ series) RSV Immunization aged 60 or older (1 - 1-dose 60+ series) [facility] Start: 05-16-2025 Screening for malignant neoplasm of breast Mammogram Screening [facility] Start: 03-25-2025 Screening for malignant neoplasm of cervix [facility] Start: 04-25-2024 End: 04-25-2024 Patient encounter procedure 04/25/2024 4:30 PM EST Office Visit [facility] [address] [place] [address] Frank Gonsalez DO [address] [place] [address] [facility] Start: 04-17-2024 End: 04-17-2024 Patient encounter procedure 04/17/2024 4:00 PM EST Office Visit OB/Gynecology [address] [place] [address] Aliya Keatign APRN.AUTISM SPECIALIST [address] [place] [address] ANNUAL OB/Gynecology Comment on above: ANNUAL Start: 04-13-2024 Screening for malignant neoplasm of breast [facility] Start: 04-12-2024 End: 04-12-2024 Patient encounter procedure 04/12/2024 1:00 PM EST Office Visit OB/Gynecology [address] [place] [address] Estrellita Mcneal MD [address] [place] [address] ANNUAL OB/Gynecology Comment on above: ANNUAL Start: 01-02-2024 End: 01-02-2024 Patient encounter procedure 01/02/2024 4:30 PM EST Office Visit Dermatology [address] [place] [address] Arnaldo Owen, CODE AND TEST CLERK.AUTISM SPECIALIST [address] [place] [address] follow up PDT Dermatology Comment on above: follow up PDT Start: 11-02-2023 End: 11-02-2023 Patient encounter procedure 11/02/2023 10:30 AM EDT Office Visit Dermatology [address] [place] [address] Stro, Nurse Derm [facility] [address] [place] [address] PDT Dermatology Comment on above: PDT Start: 10-29-2023 Covid-19 Vaccine () Covid-19 Vaccine () [facility] Start: 10-29-2023 Covid-19 Vaccine () Covid-19 Vaccine () [facility] Start: 10-29-2023 Influenza vaccination [facility] Start: 04-25-2023 End: 04-25-2024 DXA Skeletal system.axial Views for bone density DEXA bone density axial skeleton Imaging Routine Osteoporosis screening Expected: 04/25/2023, Expires: 04/25/2024 [facility] Comment on above: Expected: 04/25/2023, Expires: Start: 04-25-2023 End: 04-25-2024 Thyrotropin [Units/volume] in Serum or [facility] Work Phone: Comment on above: Expected: 04/25/2023 (Approximate), Expi res: 04/25/2024 Start: 04-25-2023 End: 04-25-2024 Triiodothyronine (T3) [Mass/volume] in Serum or Plasma T3 Lab Routine Hypercholesterolemia Weight gain Expected: 04/25/2023 (Approximate), Expires: 04/25/2024 [facility] Comment on above: Expected: 04/25/2023 (Approximate), Expi res: 04/25/2024 Start: 04-10-2023 Colonoscopy flx dx w/collj spec when pfrmd DIAGNOSTIC COLONOSCOPY [facility] Start: 04-10-2023 Patient discharge [facility] Start: 02-27-2023 Behavioral Health Screening Behavioral Health Screening [facility] Start: 02-27-2023 Depression Assessment Depression Assessment [facility] Start: 10-28-2022 Covid-19 Vaccine ( season) Covid-19 Vaccine () [facility] Start: 10-28-2022 Influenza vaccination [facility] Start: 08-16-2021 Lipid panel Lipid Screening [facility] Start: 05-25-2021 Screening for malignant neoplasm of breast Mammogram Screening [facility] Start: 08-17-2019 Diabetes Screening Diabetes Screening [facility] Start: 10-03-2017 Pneumococcal Vaccine: 50+ (1 of 1 - PCV) Pneumococcal Vaccine: 50+ (1 of 1 - PCV) [facility] Start: 10-03-2017 Shingrix Vaccine (1 of 2) Shingrix Vaccine (1 of 2) [facility] Start: 10-03-2017 Zoster Vaccines (1 of 2) Zoster Vaccines (1 of 2) [facility] Start: 10-03-2012 Screening for malignant neoplasm of colon [facility] Start: 10-03-1997 Screening for malignant neoplasm of cervix [facility] Start: 10-03-1988 Screening for malignant neoplasm of cervix Pap Smear [facility] Start: 10-03-1986 DTaP/Tdap/Td Vaccines (1 - Tdap) DTaP/Tdap/Td Vaccines (1 - Tdap) [facility] Start: 10-03-1986 Hepatitis B Vaccine (1 of 3 - 19+ 3-dose series) Hepatitis B Vaccine (1 of 3 - 19+ 3-dose series) [facility] Start: 10-03-1986 Hepatitis B Vaccines (1 of 3 - 19+ 3-dose series) Hepatitis B Vaccines (1 of 3 - 19+ 3-dose series) [facility] Start: 10-03-1986 Urine microalbumin profile DTaP,Tdap,Td Vaccine (1 - Tdap) [facility] Start: 10-03-1985 Anxiety Screening Anxiety Screening [facility] Start: 10-03-1985 Depression Screening Depression Screening [facility] Start: 10-03-1985 Diabetes mellitus screening Diabetes Screening [facility] Start: 10-03-1985 Hepatitis C screening Hepatitis C Screening [facility] Start: 10-03-1985 HIV screening HIV Screening [facility] Start: 1979 Depression Screening Depression Screening [facility] Start: 10-03-1968 MMR Vaccines (1 of 1 - Standard series) MMR Vaccines (1 of 1 - Standard series) [facility] Start: 1967 Hepatitis B Vaccine (1 of 3 - 3-dose series) Hepatitis B Vaccine (1 of 3 - 3-dose series) [facility] Start: 1967 Hepatitis B Vaccines (1 of 3 - 3-dose series) Hepatitis B Vaccines (1 of 3 - 3-dose series) [facility] Start: 1967 HIV screening HIV Screening [facility] Start: 1967 Screening for malignant neoplasm of colon [facility] Colonoscopy [facility] Patient referral [facility] Work Phone: PHOTODYNAMIC THERAPY PHOTODYNAMI C THERAPY Procedures Routine AK (actinic keratosis) Ordered: 06/27/2023 [facility] Work Phone: Comment on above: Ordered: 06/27/2023 [facility] Immunizations Immunization Date Immunization Notes Care Provider [facility] 01-13-2022 influenza, injectabl e, quadrivalent, preservative free Dr. Timbo Toney Work Phone: [facility] 01-13-2022 influenza virus vaccine, unspecified formulation Estrellita Mcneal MD Work Phone: [facility] 02-10-2021 Covid (Daren & Daren) Dr. Timbo Toney Work Phone: [facility] 01-01-2021 influenza, injectabl e, quadrivalent, preservative free Dr. Timbo Toney Work Phone: [facility] 01-21-2019 influenza, injectabl e, quadrivalent, preservative free Dr. Timbo Toney Work Phone: [facility] 11-24-2017 influenza, injectabl e, quadrivalent, preservative free Dr. Timbo Toney Work Phone: [facility] 11-23-2016 influenza, injectabl e, quadrivalent, preservative free Dr. Timbo Toney Work Phone: [facility] 01-12-2015 influenza, injectabl e, quadrivalent, preservative free Dr. Timbo Toney Work Phone: [facility] 12-05-2013 influenza, injectabl e, quadrivalent, preservative free Dr. Timbo Toney Work Phone: [facility] Payers Date Payer Category Payer Private Health Insurance [place] [employer] [id number] 2023 Unknown [id number] 2023 Unknown [id number] 2020 Self-pay [id number] 2020 Unknown [id number] Unknown [employer] [id number] Unknown [facility] [id number] Unknown [id number] Unknown [id number] Unknown [id number] Unknown [id number] Unknown [id number] Social History Date Type Detail Facility Start: 02-06-2013 End: 04-06-2023 Tobacco smoking status NHIS Never smoked tobacco [facility] Start: 02-06-2013 Tobacco use and exposure Smokeless tobacco non-user [facility] Start: 04-07-2023 End: 04-17-2024 Alcohol intake Current drinker of alcohol (finding) [facility] Start: 04-07-2023 End: 04-17-2024 History of Social function [facility] Start: 04-07-2023 End: 04-17-2024 Tobacco use panel [facility] National Score (1-100), lower number is lower risk 52 [facility] Start: 1965 Sex Assigned At Not on file C [facility] Start: 04-06-2023 End: 04-06-2023 Tobacco smoking status CAIS Unknown if ever smoked [facility] Start: 1965 Sex Assigned At Female W [facility] Start: 05-24-2024 Sex Female (finding) [facility] Goals Date Patient Goal Desired Activity /State Functional Status Date Assessment Result Facility 12-03-2013 Are you deaf, or do you have serious difficulty hearing No 12/03/2013 9:27 AM Donna Zendejas Ma [facility] 12-03-2013 Are you blind, or do you have serious difficulty seeing, even when wearing glasses No 12/03/2013 9:27 AM Donna Zendejas Ma [facility] 12-03-2013 Do you have serious difficulty walking or climbing stairs No 12/03/2013 9:27 AM Donna Zendejas Ma [facility] 12-03-2013 Do you have difficul ty dressing or bathing No 12/03/2013 9:27 AM Donna Zendejas Ma [facility] 12-03-2013 Because of a physica l, mental, or emotional condition, do you have difficulty doing errands alone such as visiting a physician's office or shopping No 12/03/2013 9:27 AM Donna Zendejas Ma [facility] Mental Status Date Assessment Result Facility 04-10-2023 Cognitive function Voice/Name [facility] Work Phone: 12-03-2013 Because of a physica l, mental, or emotional condition, do you have serious difficulty concentrating, remembering, or making decisions No 12/03/2013 9:27 AM Donna Zendejas Ma [facility] Clinical Notes 04-07-2023 to 05-17-2024 Joan Posey RN - 05/16/2024 4:02 PM EDTTelephone Encounter - Johnny AlmarazVZAQUEZ - 04/18/2024 4:42 PM ESTTelephone Encounter - Johnny Almaraz VAZQUEZ - 04/18/2024 4:42 PM ESTPatient Instructions Note Date & Type Note Facility 05-17-2024 Radiology Diagnostic study note [facility] Imaging Services [address] [place], [place] [address] Breast Limited Unilateral MR#: [id number] Acct: [id number] Name: ZAINAB QUIJANO Rep #: [id number] : 1965 F [id number] From: Chong Wolfe MD PCP: Dr. Frank Gonsalez DO Status: RE G CLI Study:Breast Limited Unilateral Date of Exam: 05/16/24 Exam# [id number] Ordering Dr: Aliya Keating SLIP COVER ESTIMATOR SLIP COVER ESTIMATOR-C PROCEDURE: BREAST LIMITED UNILATERAL 05/16/2024 REASON FOR EXAM: LUMP Left breast pain/lump. COMPARISON: Comparison is made with prior mammogram done earlier in the day. TECHNIQUE: Targeted ultrasound of the left breast was obtained. FINDINGS: LEFT: Ultrasound targeted to the inferior half of the left breast at the left breast. The breast tissue appears sonographically normal. No cyst, solid mass, or suspicious shadowing. US/Breast Limited Unilateral IMPRESSION: No sonographic abnormality is seen. BI-RADS 1: NEGATIVE. RECOMMEND ANNUAL MAMMOGRAPHIC SCREENING. Reading Location: [place] [address] CC: SLIP COVER ESTIMATOR-C Aliya Keating; Dr. Frank Gonsalez DO ~ Marketing/Sales Person: Signed [facility] 05-16-2024 Note HNO ID: [id number] Author: JOAN POSEY RN Service: ? Author Type: Registered Nurse Type: Progress Notes Filed: 05/16/2024 16:03 Note Text: Scan on 05/16/2024 3:49 PM by Provider, External, PA-C: Mammography [facility] 05-16-2024 History of Presen t illness Narrative Scan on 05/16/2024 3:49 PM by Provider, GENEVA Ricketts: Mammography documented in this encounter [facility] 04-18-2024 Telephone encounter Note Faxed cover sheet with notation to disregard prior mammogram order replace with current diagnostic mammogram order to [facility] Radiology [phone] 04/18/2024. Johnny Almaraz LPN [facility] 04-18-2024 Miscellaneous Notes Faxed cover sheet with notation to disregard prior mammogram order replace with current diagnostic mammogram order to [facility] Radiology [phone] 04/18/2024. Johnny Almaraz LPN documented in this encounter [facility] 04-17-2024 Note HNO ID: [id number] Author: ALIYA KEATING APRN.AUTISM SPECIALIST Service: ? Author Type: Nurse Practitioner Type: Progress Notes Filed: 04/17/2024 19:05 Note Text: Cranberry Sorter offered: Patient declinesKenya Lamb is a 58 year old who presents for an annual gynecologic exam without complaints. Postmenopausal: Yes since age 53 HRT use: Yes, estradiol and progesterone How lon-2 years. Still get period: No Menopause symptoms: None Time with current partner: 40 Number of lifetime partners: 1 control frequency: Never HPV vaccine: no Last pap smear: 03/25/2020, normal HPV negative History of abnormal pap: No, all prior PAP smears have been normal Bothersome pelvic pain: No Last mammogram: 03/2023 abnormal, dense breast tissue, no biopsy US benign retro-areolar ducts History of abnormal mammogram: Yes OB History Gravida3 Para3 Term3 Preterm0 AB0 Living3 SAB0 IAB0 Ectopic0 Multiple0 Live Births0 Call Center Agent History LMP: 01/08/2020, Postmenopausal Age at Menarche: 12 Age at First : Age at Menopause: Call Center Agent History Comments: Sexual Activity: Yes; Male; INFERTILITY Contraception: Not used PAST MEDICAL HISTORY Diagnosis Date Dysthymic disorder [...] Never Smokeless tobacco: Never Vaping Use Vaping status: Never Used Substance Use Topics Alcohol use: Yes Comment: OCCASIONALLY Drug use: No REVIEW OF SYSTEMS Abdomen: No abdominal pain, nausea, vomiting, diarrhea, or constipation. No bloating, early satiety, indigestion, or increased flatulence. Bladder: No dysuria, gross hematuria, urinary frequency, urinary urgency, or incontinence Breast: No breast lumps, nipple d/c, overlying skin changes, redness or skin retraction Allergies and current medication updated:Yes SENSITIVE EXAM: The sensitive examination was discussed with the Patient or Patient's Authorized Middleware Engineer. As applicable, any other physician, advance practice provider, medical student, or other health professional student that will be observing or involved in the sensitive examination for educational or training purposes was discussed with the Patient or Authorized Middleware Engineer. The Patient or Authorized Middleware Engineer has agreed to proceed with the sensitive examination. (Sensitive examination includes inspection and/or palpation of the breasts, pelvis, prostate and anorectal regions). EXAM: BP 100/70 Ht 5' 2 (1.58m) Wt 139 lb 3.2 oz (63.1kg) LMP 01/08/2020 BMI 25.45 kg/(m2). GENERAL: pleasant, female in no apparent distress HEENT: Normocephalic, atraumatic, mucus membranes moist, and no lesions NECK: Supple, full range of motion, no adenopathy, and thyroid normal DERMATOLOGY: Normal, without lesions, non-icteric, and non-hirsute BREAST: soft, non-tender, symmetric, normal nipple-areolar complex, no lymphadenopathy, no nipple discharge, and dominant mass left breast at 6 o'clock 4 cm from nipple noted on US 2023 and dominant tender sub-areolar mass. CHEST: Normal inspiratory effort ABDOMEN: soft, non-tender, and no masses PELVIC: external genitalia normal, normal Bartholin's glands, urethra, Grayhawk's glands, no vulvar lesions, no cervical lesions, physiologic discharge present, normal appearing perineal body and perianal region, + vaginal atrophy BIMANUAL: uterus normal size, shape and consistency, no adnexal masses, and non-tender RECTOVAGINAL: deferred. NEURO: alert and oriented x3,exam grossly non-focal EXTREMITIES: normal ASSESSMENT/PLAN: 1) Health maintenance: Pap/HPV up to date. Mammogram up to date Nutrition, exercise and routine health maintenance exams reviewed. Calcium/Vitamin D supplementation information provided. Colon cancer screening: up to date with screening 2023 10 yr interval BMD: up to date 2023 osteopenia 2. Subareolar mass of left breast - ICD9: 611.72, ICD10: N63.42 - Bilateral diagnostic mammogram - [facility] - Left breast diagnostic ultrasound - [facility] 3. Mass overlapping multiple quadrants of left breast - ICD9: 611.72, ICD10: N63.25 - Bilateral diagnostic mammogram - [facility] - Left breast diagnostic ultrasound - [facility] 4) Follow up one year or sooner as needed Aliya Keating APRN.[facility] [place] 04-17-2024 History of Presen t illness Narrative Cranberry Sorter offered: Patient declines. Zainab is a 58 year old who presents for an annual gynecologic exam without complaints. Postmenopausal: Yes since age 53 HRT use: Yes, estradiol and progesterone How lon-2 years. Still get period: No Menopause symptoms: None Time with current partner: 40 Number of lifetime partners: 1 control frequency: Never HPV vaccine: no Last pap smear: 03/25/2020, normal HPV negative History of abnormal pap: No, all prior PAP smears have been normal Bothersome pelvic pain: No Last mammogram: 03/2023 abnormal, dense breast tissue, no biopsy US benign retro-areolar ducts History of abnormal mammogram: Yes OB History Gravida3 Para3 Term3 Preterm0 AB0 Living3 SAB0 IAB0 Ectopic0 Multiple0 Live Births0 Call Center Agent History LMP: 01/08/2020, Postmenopausal Age at Menarche: 12 Age at First : Age at Menopause: Call Center Agent History Comments: Sexual Activity: Yes; Male; INFERTILITY Contraception: Not used PAST MEDICAL HISTORY Diagnosis Date Dysthymic disorder [...] Never Smokeless tobacco: Never Vaping Use Vaping status: Never Used Substance Use Topics Alcohol use: Yes Comment: OCCASIONALLY Drug use: No REVIEW OF SYSTEMS Abdomen: No abdominal pain, nausea, vomiting, diarrhea, or constipation. No bloating, early satiety, indigestion, or increased flatulence. Bladder: No dysuria, gross hematuria, urinary frequency, urinary urgency, or incontinence Breast: No breast lumps, nipple d/c, overlying skin changes, redness or skin retraction Allergies and current medication updated:Yes SENSITIVE EXAM: The sensitive examination was discussed with the Patient or Patient's Authorized Middleware Engineer. As applicable, any other physician, advance practice provider, medical student, or other health professional student that will be observing or involved in the sensitive examination for educational or training purposes was discussed with the Patient or Authorized Middleware Engineer. The Patient or Authorized Middleware Engineer has agreed to proceed with the sensitive examination. (Sensitive examination includes inspection and/or palpation of the breasts, pelvis, prostate and anorectal regions). EXAM: BP 100/70 Ht 5' 2 (1.58m) Wt 139 lb 3.2 oz (63.1kg) LMP 01/08/2020 BMI 25.45 kg/(m^2). GENERAL: pleasant, female in no apparent distress HEENT: Normocephalic, atraumatic, mucus membranes moist, and no lesions NECK: Supple, full range of motion, no adenopathy, and thyroid normal DERMATOLOGY: Normal, without lesions, non-icteric, and non-hirsute BREAST: soft, non-tender, symmetric, normal nipple-areolar complex, no lymphadenopathy, no nipple discharge, and dominant mass left breast at 6 o'clock 4 cm from nipple noted on US 2023 and dominant tender sub-areolar mass. CHEST: Normal inspiratory effort ABDOMEN: soft, non-tender, and no masses PELVIC: external genitalia normal, normal Bartholin's glands, urethra, Grayhawk's glands, no vulvar lesions, no cervical lesions, physiologic discharge present, normal appearing perineal body and perianal region, + vaginal atrophy BIMANUAL: uterus normal size, shape and consistency, no adnexal masses, and non-tender RECTOVAGINAL: deferred. NEURO: alert and oriented x3,exam grossly non-focal EXTREMITIES: normal ASSESSMENT/PLAN: 1) Health maintenance: Pap/HPV up to date. Mammogram up to date Nutrition, exercise and routine health maintenance exams reviewed. Calcium/Vitamin D supplementation information provided. Colon cancer screening: up to date with screening 2023 10 yr interval BMD: up to date 2023 osteopenia 2. Subareolar mass of left breast - ICD9: 611.72, ICD10: N63.42 - Bilateral diagnostic mammogram - [facility] - Left breast diagnostic ultrasound - [facility] 3. Mass overlapping multiple quadrants of left breast - ICD9: 611.72, ICD10: N63.25 - Bilateral diagnostic mammogram - [facility] - Left breast diagnostic ultrasound - [facility] 4) Follow up one year or sooner as needed Aliya Keating APRN.AUTISM SPECIALIST documented in this encounter [facility] 02-15-2024 Telephone encounter Note filed [facility] 02-15-2024 Miscellaneous Notes filed Refill request received via [employer]. Patient last seen for annual exam on 04/07/23. Ida Mccall RN documented in this encounter [facility] 02-15-2024 Telephone encounter Note Refill request received via [employer]. Patient last seen for annual exam on 04/07/23. Ida Mccall RN [facility] 12-14-2023 Telephone encounter Note filed [facility] 12-14-2023 Miscellaneous Notes filed Last OV 04/07/23. Requested Prescriptions Pending Prescriptions Disp Refills estradiol (CLIMARA) 0.025 mg/24 hr patch 4 Patch 2 Sig: Apply 1 Patch as directed one time a week. progesterone micronized (PROMETRIUM) 100 mg capsule 30 capsule 2 Sig: Take 1 capsule by mouth daily at bedtime. Fadumo Turk RN documented in this encounter [facility] 12-14-2023 Telephone encounter Note Last OV 04/07/23. Requested Prescriptions Pending Prescriptions Disp Refills estradiol (CLIMARA) 0.025 mg/24 hr patch 4 Patch 2 Sig: Apply 1 Patch as directed one time a week. progesterone micronized (PROMETRIUM) 100 mg capsule 30 capsule 2 Sig: Take 1 capsule by mouth daily at bedtime. Fadumo Turk RN [facility] 11-24-2023 Note HNO ID: [id number] Author: LILIAAN DE LEON APRN.CNM Service: ? Author Type: Public Relations Assistant Type: Progress Notes Filed: 11/24/2023 18:19 Note Text: Medication refilled and sent to pharmacy. Liliana De Leon APRN.CNM [facility] 11-24-2023 History of Presen t illness Narrative Medication refilled and sent to pharmacy. Liliana De Leon APRN.CNM documented in this encounter [facility] 11-02-2023 Instructions Zainab Flores RN - 11/02/2023 9:53 AM EDT After Care Instructions Photodynamic Therapy with Levulan and Blue Light Expected skin changes after PDT: The treated skin will likely turn red and may appear slightly swollen 24-48 h after treatment, but you should not see any blistering. Redness usually peaks one-to-two days after treatment and gets better within a week. Actinic keratosis lesions may not be gone until about four weeks after treatment. The skin may be itchy or change color slightly after treatment, but these changes are temporary. Photosensitivity: Levulan remains in the skin for 48 hours, so further reactions (redness and a tingling or burning sensation) can be caused by light exposure if one is not careful. Therefore, for about 2 days after the treatment, you should take care to protect the treated areas from light. Stay out of strong, direct light. Stay indoors as much as possible. Wear protective clothing and wide-brimmed hats to avoid sunlight when outdoors. Avoid beaches, snow, light colored concrete, or other reflective surfaces. After Care steps for you to do at home: Again, avoid direct light for 48 hours. Gently wash area twice a day with Cetaphil, Neutrogena or other mild cleanser. Do not scrub! After cleansing, use Aquaphor or Vaseline twice a day to keep the area moist and free of crust. Apply the topical steroid ointment that your doctor has prescribed for you (or alternatively, you can use 1% hydrocortisone ointment available at any pharmacy) to the entire treated area, twice a day as needed for 2-4 days, to help decrease redness and irritation. Apply the steroid BEFORE applying Aquaphor ointment, not afterwards. Apply cool compresses as needed for comfort during the first few days. After day 3, gently exfoliate with a soft washcloth and warm water twice a day. Then apply either Aquaphor or Vaseline. To address swelling and redness, you may also take [id number] oral medications: Claritin (loratidine) 10 mg in the morning, Benadryl (diphenhydramine) 25-50 mg nightly (may cause drowsiness) and/or Ibuprofen as directed. If you absolutely must go outdoors during the first 48 hours, cover yourself with a broad-brimmed hat and use Neutrogena sensitive skin (chemical free) sunscreen SPF 30, or other titanium-dioxide type of sunscreen, in a thick layer to protect you from sunlight If you have questions or concerns, call the following number(s): [facility] [phone] documented in this encounter [facility] 11-02-2023 Note HNO ID: [id number] Author: ZAINAB FLORES RN Service: ? Author Type: Registered Nurse Type: Progress Notes Filed: 11/02/2023 12:10 Note Text: PHOTODYNAMIC THERAPY November 02, 2023 Dx: Actinic Keratosis Pt ID verified with patient: Yes Procedure verified against order and with patient: Yes Skin prepped with 70% isopropyl alcohol Yes Area treated: Full face Number of Levulan sticks applied: 1 Lot # [id number] 01/2026 Time before Blue Light exposure: 15 minutes Area treated: Full face Pt exposed to light for 30 minutes Patient reaction during treatment: None, patient tolerated procedure well. Patient reaction after treatment: None, patient tolerated procedure well. Aftercare instructions given. Patient verbalizes understanding. Follow up with Arnaldo Owen CNP . Zainab Flores RN [facility] 11-02-2023 History of Presen t illness Narrative PHOTODYNAMIC THERAPY November 02, 2023 Dx: Actinic Keratosis Pt ID verified with patient: Yes Procedure verified against order and with patient: Yes Skin prepped with 70% isopropyl alcohol Yes Area treated: Full face Number of Levulan sticks applied: 1 Lot # [id number] 01/2026 Time before Blue Light exposure: 15 minutes Area treated: Full face Pt exposed to light for 30 minutes Patient reaction during treatment: None, patient tolerated procedure well. Patient reaction after treatment: None, patient tolerated procedure well. Aftercare instructions given. Patient verbalizes understanding. Follow up with Arnaldo wOen CNP . Zainab Flores RN documented in this encounter [facility] 08-17-2023 Telephone encounter Note filed [facility] 08-17-2023 Miscellaneous Notes filed Refill request received via [employer]. Patient last seen in office on 04/07/23 for annual exam. Ida Mccall RN documented in this encounter [facility] 08-15-2023 Telephone encounter Note Refill request received via [employer]. Patient last seen in office on 04/07/23 for annual exam. Ida Mccall RN [facility] 06-27-2023 Arnaldo Dougherty APRN.[facility] - 06/27/2023 3:39 PM EDT GENERAL SUN SAFETY Thank you for allowing me to examine you for signs of skin cancer today. We had an opportunity to discuss my findings and any treatments I recommended. I believe that there are several steps that a person can do to help prevent skin cancers and to detect them at an early, treatable stage: 1. I highly recommend that once a month you perform your own complete skin check looking for changing or unusual spots. Use a wall-mounted mirror and a hand mirror to assist in seeing body areas that are difficult to see otherwise. If you have a family member that can assist, this is often helpful. Additional information can be obtained at: www.skincancer.org/oovz-elkems-y nformation/early-detection 2. In many cases, skin cancer can be prevented. The best way to protect yourself is to avoid too much sun and sunburns. Health care providers believe that ultraviolet rays (UV rays) from the sun damage the skin and over time lead to skin cancer. Here are ways to protect yourself: -Don't spend long periods of time in direct sunlight. -Wear hats with brims to protect your face and ears. -Wear long-sleeved shirts and pants to protect your arms and legs. -Use broad spectrum sunscreens with a SPF (skin protection factor) of 30 or higher that protect against burning and tanning rays. Apply the lotion 30 minutes before you go outside. (Broad-spectrum sunscreens protect against UV-B and UV-A rays.) -Wear sunglasses to protect your eyes. -Use a lip balm with sunscreen. -Avoid the sun between 10am and 4pm. -Show any changing mole to your health care provider. documented in this encounter [facility] 06-27-2023 Note HNO ID: [id number] Author: ARNALDO OWEN APRN.[facility] Service: ? Author Type: Nurse Practitioner Type: Progress Notes Filed: 07/05/2023 16:42 Note Text: Department of Dermatology Arnaldo Owen APRN.CNP Last visit in Dermatology: Visit date not found Objective/Assessment/Plan 1. AK (actinic keratosis) Head - Anterior (Face) Erythematous, hyperkeratotic papules Discussed treatment options, including LN2 vs efudex vs PDT. Patient elects PDT R/b/a for the treatment/medication(s) including possible side effects discussed and reviewed with patient. PDT 2020 - Head - Anterior (Face) 2. Multiple benign nevi Multiple scattered pink papules with flaccid epidermis and small, symmetric garcia to brown macules with uniform pigmentation over the trunk and extremities. Observational course. Monitor for growth and changes. 3. Seborrheic keratosis Stuck-on verrucous, variably pigmented papules and plaques. Scattered to the trunk, bilateral upper extremities, bilateral lower extremities. Observational course. Monitor for growth and changes. 4. Lentigines Densely scattered light garcia macules and small patches on all sun exposed areas. Observational course. Monitor for growth and changes. 5. Bravo angioma Bravo-red papules scattered to the trunk, bilateral upper extremities, bilateral lower extremities. Observational course. Monitor for growth and changes. 6. Skin cancer screening The patient's skin was examined for evidence of cutaneous malignancy. The nature of sun-induced photo-aging and skin cancers is discussed. Sun avoidance, protective clothing, and the use of 30-SPF sunscreens is advised. Patient is instructed to perform regular self exams. Patient instructed to observe for changing, symptomatic, or new skin lesions and encouraged to contact our office for evaluation. Follow-up as noted below or as needed. Chief Complaint: Patient presents with: Full Body Skin Check Subjective and Objective HPI: Zainab Quijano is a 57 year old female who presents for: Skin check. Desires: Total body skin check in female excluding genitals (patient has periodic examination by PCP and declines this exam) History of skin cancer?: No Areas of particular concern?: No Past medical history is reviewed. Medication list is reviewed. Physical Exam included: Scalp, face, ears, neck, chest, back, abdomen, bilateral upper extremities, bilateral lower extremities, buttocks, hands, feet, nails and hair Intake information obtained by RUY Sanon APRN.[facility] 06-27-2023 History of Presen t illness Narrative Images from the original note were not included. Department of Dermatology Arnaldo Owen APRN.[facility] Last visit in Dermatology: Visit date not found Objective/Assessment/Plan 1. AK (actinic keratosis) Head - Anterior (Face) Erythematous, hyperkeratotic papules Discussed treatment options, including LN2 vs efudex vs PDT. Patient elects PDT R/b/a for the treatment/medication(s) including possible side effects discussed and reviewed with patient. PDT 2020 - Head - Anterior (Face) 2. Multiple benign nevi Multiple scattered pink papules with flaccid epidermis and small, symmetric garcia to brown macules with uniform pigmentation over the trunk and extremities. Observational course. Monitor for growth and changes. 3. Seborrheic keratosis Stuck-on verrucous, variably pigmented papules and plaques. Scattered to the trunk, bilateral upper extremities, bilateral lower extremities. Observational course. Monitor for growth and changes. 4. Lentigines Densely scattered light garcia macules and small patches on all sun exposed areas. Observational course. Monitor for growth and changes. 5. Bravo angioma Bravo-red papules scattered to the trunk, bilateral upper extremities, bilateral lower extremities. Observational course. Monitor for growth and changes. 6. Skin cancer screening The patient's skin was examined for evidence of cutaneous malignancy. The nature of sun-induced photo-aging and skin cancers is discussed. Sun avoidance, protective clothing, and the use of 30-SPF sunscreens is advised. Patient is instructed to perform regular self exams. Patient instructed to observe for changing, symptomatic, or new skin lesions and encouraged to contact our office for evaluation. Follow-up as noted below or as needed. Chief Complaint: Patient presents with: Full Body Skin Check Subjective and Objective HPI: Zainab Quijano is a 57 year old female who presents for: Skin check. Desires: Total body skin check in female excluding genitals (patient has periodic examination by PCP and declines this exam) History of skin cancer?: No Areas of particular concern?: No Past medical history is reviewed. Medication list is reviewed. Physical Exam included: Scalp, face, ears, neck, chest, back, abdomen, bilateral upper extremities, bilateral lower extremities, buttocks, hands, feet, nails and hair Intake information obtained by RUY Sanon APRN.AUTISM SPECIALIST documented in this encounter [facility] 06-16-2023 Miscellaneous Notes Spoke with pt and she will try the patch. Pt stated that she spends a lot of time in the pool. If she has issues with patch while swimming she will contact our office to change to oral estrogen. Roula Marino LPN' If patient does not read message by Monday of next week please call her and see if she wants me to send in estrogen pill documented in this encounter [facility] 05-04-2023 Miscellaneous Notes Noted thanks Message and rx's sent documented in this encounter [facility] 04-25-2023 History of Presen t illness Narrative Images from the original note were not included. [facility] [address] [place] [address] [address] [facility] [id number] Visit type: Established Patient Reason for Visit: Follow-up (Med check) Assessment / Plan: Zainab was seen today for follow-up. Diagnoses and all orders for this visit: Hypercholesterolemia (Primary) Comments: Recurrent, patient deferring statin therapy at this time. Weight loss cardio exercise and low-fat meals Orders: - TSH; Future - T3; Future - TSH - T3 Family history of breast cancer in mother Osteoporosis screening Comments: Bone density, vitamin D3 and calcium Orders: - DEXA bone density axial skeleton; Future Weight gain - TSH; Future - T4; Future - T3; Future - TSH - T4 - T3 Family history of Alzheimer's disease Comments: Discussed minimizing risk for microvessel disease. Possible statin therapy. Fish oil supplements baby aspirin 35 Minutes spent on reviewing pertinent history, patient interview, physical exam, discussion of diagnosis and treatment and work-up options. Subjective: Patient ID: Zainab Quijano is a 57 y.o. female. HPI healthy non-smoker with history of hyperlipidemia presents for overall checkup. Recent SHIP SCALER exam done including mammogram, breast ultrasound. Recommend recheck in 1 year. Colonoscopy up-to-date from a few weeks ago. Recheck due in 10 years. Only ongoing concern is LDL over goal of less than 100. Recent study at 137. Fair HDL. She does not smoke or drink alcohol in excess. No history of diabetes or hypertension. She does have a family history of premature Alzheimer's in her mom and her maternal grandma. Review of Systems overall feeling well. No recent earache or sore throat or cough. 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 She enjoys her 5 healthy grandkids. Trying to eat better and plans to lose some weight and exercise more. Denies exertional chest pain jaw pain or dyspnea. No PND orthopnea claudication or edema. No heartburn or abdominal pain. Bowels are regular. No melena or blood. No postmenopausal bleeding. Rare arthralgia. No skin concerns. No anxiety or depression No Known Allergies Current Outpatient Medications on File Prior to Visit Medication Sig Dispense Refill magnesium oxide (Mag-Ox) 400 (240 Mg) MG tablet Take 400 mg by mouth daily. No current facility-administered medications on file prior to visit. Patient Active Problem List Diagnosis Hypercholesterolemia Family history of breast cancer in mother Abnormality of left breast on screening mammography Family history of Alzheimer's disease Social History Tobacco Use Smoking status: Never Smokeless tobacco: Never Substance Use Topics Alcohol use: Yes Alcohol/week: 3.0 standard drinks of alcohol Past Surgical History: Procedure Laterality Date COLONOSCOPY 03/2023 Dr. Collier- neg- due 2033 LAPAROSCOPY DIAGNOSTIC / BIOPSY / ASPIRATION / LYSIS infertility workup TONSILLECTOMY AND ADENOIDECTOMY (HISTORICAL) Family History Problem Relation Name Age of Onset Breast cancer Mother Siena Zavala 60 Dementia Mother Siena Zavala 72 alive age 81 Prostate cancer Father Raman Palomares Hyperlipidemia Father Raman Palomares Hypertension Father Raman Palomares alive age 83 Bladder Cancer Father Raman Palomares No Known Problems Sister No Known Problems Sister No Known Problems Sister Hyperlipidemia Brother Dementia Maternal Grandmother late 70s Stroke Maternal Grandfather early 70s Other Paternal Grandmother age 93 Diabetes Paternal Grandmother in 70s Coronary artery disease Paternal Grandfather late 60s Objective: BP 101/74 Pulse 107 Temp 36.3 C (97.3 F) (Temporal) Ht 5' 2 (1.575 m) Wt 138 lb (62.6 kg) SpO2 96% BMI 25.24 kg/m Physical Exam very pleasant cooperative. Engaging. The physical exam is generally normal. Patient appears well, alert and oriented x 3, pleasant, cooperative. Vitals are as noted. No carotid bruits. Neck supple, no abnormal adenopathy, thyroid lesions or masses. Ears, nose and throat are normal without acute findings. Lungs are clear to auscultation. Heart is regular, without murmurs, gallops or ectopy. Abdomen is soft, non tender, without masses, hepatosplenomegaly, or bruits. Normal BS evident. Extremities are normal without edema. Peripheral pulses are fair. No worrisome skin lesions. Screening neurological exam is normal without focal deficits. documented in this encounter [facility] 04-25-2023 Instructions Frank Gonsalez DO - 04/25/2023 4:30 PM EST Lower fat meals, Follow low carb diet and cardio exercise 150 min/week documented in this encounter [facility] 04-21-2023 Miscellaneous Notes Message sent to pt [facility] mammogram and breast ultrasound are scanned in [facility]. Benign. documented in this encounter [facility] 04-10-2023 Procedure note [facility] 04-10-2023 Procedure note [facility] 04-07-2023 Instructions Estrellita Mcneal MD - 04/07/2023 1:04 PM EST ACOG Screening Guidelines The following health screening schedule is recommended by the [place] [employer] (ACOG). Some [...] salmon and sardines and vegetables, such as Sammarinese cabbage, kale, and broccoli. Foods fortified with calcium include many fruit juices, tofu and cereals. For more food calcium content information, visit http://ods.od.nih.gov/factsheets /calcium. Calcium supplements come in several different forms. [...] acid, calcium carbonate is found in some epcn-[id number]-[id number] antacid products, such as Tums and Rolaids [...] safe to do so in terms of senior living heart disease risk. HT and breast cancer [...] Women: Randomized Trial. BMJ Nov 2011. [place] [employer]. The 2012 hormone therapy position statement Accessed 07/26/12. [place] [employer]. [place] [employer] of Clinical Endocrinologists Medical Guidelines for the Clinical Practice for the Diagnosis and Treatment of Menopause Accessed 08/19/12. Committee on Gynecological Practice. Postmenopausal estrogen therapy: Route of administration and risk of venous thromboembolism. Obstet Gynecol 2013 May; 121:887. Estrogen alone and joint symptoms in the Women's Health Initiative randomized trial. Menopause 2012May 14. Non-Hormonal Ways to [place] with Hot Flashes and Menopause Hormone therapy [...] Tofu, silken 27.91 Tofu, yogurt 16.30 Source: [facility] -- [facility] Database on the Isoflavone Content of [...] black cohosh and soy products) are available uqka-owp-jkijcnt but are not FDA-approved. Some prescription medications [...] some of the other options. Non-prescription, herbal, opjs-wou-vfknwjz therapies: Drug Side Effects Effectiveness Evening Alamo Oil Nausea, diarrhea, headache. Only one well-designed [...] per day compared to placebo. Are the jrem-htj-zdjwitk herbal products (botanicals) safe? While safe when [...] promoted. Be cautious of products promoted through: [employer] Direct mailings hint Ads disguised as valid news articles Ads in the back of magazines Additional red flags to look for include: Big claims: If products claim to be a cure for your condition, or gives outrageous claims, be cautious. Source: Be wary if the product is only offered through one structures mechanic or purchased only through a health care provider s office. Ingredients: Make sure all of the active ingredients are listed, and don t trust secret formulas. Testimonials: Remember that only people who are satisfied with a product give testimonials and that they may be getting paid for their endorsement References: National Center for Complementary and Alternative Medicine. Vitamin E. nccam.nih.gov Assessed May 28, 2012 Melba Cain et al. meta-analysis: High Dosage Vitamin E. Supplementation Might Increase All Cause Mortality. Annals of Internal Medicine March 02, 2004. annals.org National Center for Complementary and Alternative Medicine. Menopausal Symptoms and CAM. nccam.nih.gov Accessed May 28, 2012 [place] Men[employer] Society, Hormone Therapy for women in 2012. www.menopause.org Assessed May 28, 2012 [place] [employer]stetricians and Gynecologists. Publications. The Menopause Years. www.acog.org Accessed 04/26/2010 Centers for Disease Control and Prevention. Women s Reproductive Health: Menopause. www.cdc.gov Accessed 04/26/2010 National Alfred on Aging. Age Page: Menopause. www.angelica.nih.gov Accessed 04/26/2010 documented in this encounter [facility] 04-07-2023 History of Presen t illness Narrative Zainab is a 57 year old who presents for an annual gynecologic exam without complaints. Postmenopausal: Yes. Went 3 years without bleeding and then 1 episode of period like bleeding about 1 year ago. No bleeding since then HRT use: No. Last Pap: 04/01/2020 normal HPV: 03/30/2020 negative History of abnormal pap: No Last mammogram: 2020 incomplete and had follow up imaging done at [facility] History of abnormal mammogram: Yes - as noted above Sexually active: Yes Scheduled colonoscopy next week OB History T3 L3 SAB0 IAB0 Ectopic0 Multiple0 Live Births0 Call Center Agent History LMP: 03/12/2020, Postmenopausal Age at Menarche: Age at First : Age at Menopause: Call Center Agent History Comments: Sexual Activity: Yes; Male; INFERTILITY [...] external genitalia normal, normal Bartholin's glands, urethra, Grayhawk's glands, no vulvar lesions, no cervical lesions, [...] Estrellita Mcneal DO documented in this encounter [facility] Evaluation note Diagnosis Encounter for gynecological examination (general) (routine) without abnormal findings- Primary Headaches Menopausal symptoms Symptomatic menopausal or female climacteric states [facility] Diagnosis Onset Date Resolution Status Encounter for screening for malignant neoplasm of colo n [facility] Work Phone: Evaluation note* Diagnosis Hypercholesterolemia- Primary Pure hypercholesterolemia Family history of breast cancer in mother Family history of malignant neoplasm of breast Osteoporosis screening Special screening for osteoporosis Weight gain Other symptoms concerning nutrition, metabolism, and development Family history of Alzheimer's disease Family history of other condition [facility] Vasomotor symptoms due to menopause- Primary [facility] AK (actinic keratosis)- Primary Actinic keratosis Multiple benign nevi Benign neoplasm of skin, site unspecified Seborrheic keratosis Other seborrheic keratosis Lentigines Other dyschromia Bravo angioma Nevus, non-neoplastic Skin cancer screening Screening for malignant neoplasm of the skin [facility]* Diagnosis Vasomotor symptoms due to menopause documented [facility] encounter [facility]* Diagnosis Actinic keratosis- Primary [facility]* Diagnosis Vasomotor symptoms due to menopause documented [facility]* Diagnosis Vasomotor symptoms due to menopause [facility]* Diagnosis Vasomotor symptoms due to menopause [facility]* Diagnosis Encounter for gynecological examination with abnormal finding- Primary Routine gynecological examination Subareolar mass of left breast Mass overlapping multiple quadrants of left breast documented in this encounter [facility] noteNo assessment information availableWProMedica [facility] Work Phone: Evaluation note* Diagnosis Vasomotor symptoms due to menopause documented in this encounter [facility] note* Diagnosis Vasomotor symptoms due to menopause [facility] Author Blaine Collier [facility] April 10, 2023 11:29am Note Date/Time April 10, 2023 11:29am [facility] Medical Records Department [address] [place] [id number] History & Physical Exam 04/10/23 1128 MR#: [id number] Acct: [id number] Name: ZAINAB QUIJANO Rep #:[id number] : [id number] From: Blaine Collier DO PCP: Dr. Frank Gonsalez DO Status:[facility] Location: [place] [address] HPI - General General Date of Admission: 04/10/23 Date of Service: 04/10/23 Chief Complaint: Screening colonoscopy HPI Narrative ZAINAB QUIJANO, is a 57 F who presents today for screening colonoscopy. She has not had a colonoscopy in the past. She does not have abdominal pain. She has not had any cramping, bleeding or change in bowel habits. Overall she is very good health. [facility] Medical History (Updated 04/06/23 @ 13:33 by Ambreen Herrera) Alcohol use High cholesterol History of stress test Migraine headache Post-menopausal Restless legs Shortness of breath on exertion Home Medications NK 03/29/23 [History Last Taken Unknown] Allergy/AdvReac Type Severity Reaction Status Date / Time No Known Allergies Allergy Verified 04/10/23 10:50 Surgical History (Updated 04/06/23 @ 13:33 by Ambreen Herrera) Hx of exploratory laparotomy Hx of tonsillectomy Social History (Updated 03/29/23 @ 09:57 by Fidelina Avendaño) household members: spouse current occupational status: employed Smoking Status: Never smoker ROS Review of Systems ROS Unobtainable: other Constitutional Constitutional: Denies fatigue, fever(s), poor appetite, weight gain or weight loss ENT HEENT: Denies mouth lesions Cardiovascular Cardiovascular: Denies abdominal bloating, abdominal edema or abdominal pain Respiratory/Chest Respiratory/Chest: Denies change in mental status, change in phlegm color, chestcongestion or chest tightness Gastrointestinal Gastrointestinal: Denies belching, bloating, change in bowel habits, change in stool character, chewing difficulty, coffee ground emesis, constipation, cramping, diarrhea, dyspepsia, dysphagia, early satiety, excessive flatus, fecalincontinence, heartburn, hematemesis, hematochezia, hemorrhoids, loose stools, melena, nausea, odynophagia, rectal bleeding, tenesmus, vomiting or weight changes Genitourinary Genitourinary: Denies abdominal discomfort, burning urination or itching Musculoskeletal Musculoskeletal: Reports as per HPI; Denies muscle weakness or myalgias Integumentary Integumentary: Denies jaundice Neurologic Neurologic: Denies lack of coordination or weakness Psychiatric Psychiatric: Denies confusion, depression, memory loss, mood swings, paranoia orsuicidal ideation Endocrine Endocrinology: Denies systems reviewed and no addt'l complaints, except as documented Hematologic/Lymphatic Hematologic/Lymphatic: Denies anemia, easy bleeding, easy bruising or lymphadenopathy Allergic/Immunologic Allergic/Immunologic: Denies systems reviewed and no addt'l complaints, except as documented Vital Signs Vital Signs Vital Signs: 04/10/23 10:51 02/12/24 10:51 Temperature 98.0 F Temperature Source Temporal Pulse Rate 107 H Respiratory Rate 20 H Respiratory Pattern Normal Blood Pressure 126/86 H Blood Pressure Mean 99 Blood Pressure Source Monitor Blood Pressure Position Semi-Fowlers Blood Pressure Location Left Arm Pulse Ox 100 Oxygen Delivery Method Room Air Weight Weight: 136 lb 10.986 oz Body Mass Index (BMI) 25.0 Physical Exam Const alert General Appearance: cooperative Orientation / Consciousness: oriented to person HEENT hearing grossly normal bilaterally Head and Scalp: normal to inspection Face and Sinus: face symmetric Nose: external nose normal Mouth: oral and palatal mucosa normal Eyes conjunctivae normal General Eye: normal appearance of both eyes Neck full ROM General: normal visual inspection Lymph Lymphatic: no lymphadenopathy noted Chest inspection of chest normal and palpation of chest normal Chest: symmetrical chest wall rise Resp normal respiratory effort Effort and Inspection: able to speak in complete sentences Cardio regular rate GI non-distended Percussion: normal to percussion Rectal Exam: deferred Neuro Speech: speech normal Gait (Neuro): normal gait Assessment & Plan Assessment/Plan (1) Encounter for screening for malignant neoplasm of colon: PLAN: She was explained alternatives, risk, benefits include not withstanding bleeding, infection, sepsis, perforation, need for emergent surgery and . She will have an ASA of 2. 04/10/23 1129 <Electronically signed by Blaine Collier DO> Cosigner Signature (if applicable): CC: Dr. Frank Gonsalez DO; Blaine Collier DO~ Signed [facility] Work Phone: Reason for referral (narrative)No reason for referral information availableWProMedica [facility] Work Phone: Chief Complaint and Reason for Visit Chief Complaint [employer] Amb Documentation Reason for Visit Encounter for screen ing for malignant neoplasm of colon Chief Complaint EM[employer]OYEE [employer] Amb Documentation N63.20 Reason for Visit Encounter for screen ing for malignant neoplasm of colon Chief Complaint EMPLOYEE [employer]S Amb Documentation N63.20 SCREENING Reason for Visit Encounter for screen ing for malignant neoplasm of colon Chief Complaint Admit Date LUMP LEFT BREAST May 16, 2024 2:1 3pm Advance Directives No Advanced Directives Records Found Advance Directive Response Recorded Date/ Time Living Will No April 06 1:27pm Power of Box Machine Operator No April 06, 2023 1:27pm Advance Directive Response Recorded Date/ Time Living Will No April 06 2:27pm Power of Box Machine Operator No April 06, 2023 2:27pm Summary Purpose Family History No Family History Records FoundNo Family History Records FoundNo Family History Records Found Additional Source Comments Source Comments (unrecognize d section and content) In the event this informatio n is protected by the Federal Confidentiality of Alcohol and Drug Abuse Patient Records regulations: The Federal rules restrict any use of the information to criminally investigate or prosecute any alcohol or drug abuse patient.[facility] the event this information is protected by the Federal Confidentiality of Alcohol and Drug Abuse Patient Records regulations: The Federal rules restrict any use of the information to criminally investigate or prosecute any alcohol or drug abuse patient.[facility] the event this information is protected by the Federal Confidentiality of Alcohol and Drug Abuse Patient Records regulations: The Federal rules restrict any use of the information to criminally investigate or prosecute any alcohol or drug abuse patient.[facility] Hospital[facility] the event this information is protected by the Federal Confidentiality of Alcohol and Drug Abuse Patient Records regulations: The Federal rules restrict any use of the information to criminally investigate or prosecute any alcohol or drug abuse patient.[facility] Hospital[facility] the event this information is protected by the Federal Confidentiality of Alcohol and Drug Abuse Patient Records regulations: The Federal rules restrict any use of the information to criminally investigate or prosecute any alcohol or drug abuse patient.[facility] the event this information is protected by the Federal Confidentiality of Alcohol and Drug Abuse Patient Records regulations: The Federal rules restrict any use of the information to criminally investigate or prosecute any alcohol or drug abuse patient.[facility] Hospital[facility] the event this information is protected by the Federal Confidentiality of Alcohol and Drug Abuse Patient Records regulations: The Federal rules restrict any use of the information to criminally investigate or prosecute any alcohol or drug abuse patient.[facility] Hospital[facility] the event this information is protected by the Federal Confidentiality of Alcohol and Drug Abuse Patient Records regulations: The Federal rules restrict any use of the information to criminally investigate or prosecute any alcohol or drug abuse patient.[facility] Hospital[facility] the event this information is protected by the Federal Confidentiality of Alcohol and Drug Abuse Patient Records regulations: The Federal rules restrict any use of the information to criminally investigate or prosecute any alcohol or drug abuse patient.[facility] Hospital[facility] the event this information is protected by the Federal Confidentiality of Alcohol and Drug Abuse Patient Records regulations: The Federal rules restrict any use of the information to criminally investigate or prosecute any alcohol or drug abuse patient.[facility] Hospital[facility] the event this information is protected by the Federal Confidentiality of Alcohol and Drug Abuse Patient Records regulations: The Federal rules restrict any use of the information to criminally investigate or prosecute any alcohol or drug abuse patient.[facility] Hospital[facility] the event this information is protected by the Federal Confidentiality of Alcohol and Drug Abuse Patient Records regulations: The Federal rules restrict any use of the information to criminally investigate or prosecute any alcohol or drug abuse patient.[facility] Hospital[facility] the event this information is protected by the Federal Confidentiality of Alcohol and Drug Abuse Patient Records regulations: The Federal rules restrict any use of the information to criminally investigate or prosecute any alcohol or drug abuse patient.[facility] Hospital[facility] the event this information is protected by the Federal Confidentiality of Alcohol and Drug Abuse Patient Records regulations: The Federal rules restrict any use of the information to criminally investigate or prosecute any alcohol or drug abuse patient.[facility] Hospital[facility] the event this information is protected by the Federal Confidentiality of Alcohol and Drug Abuse Patient Records regulations: The Federal rules restrict any use of the information to criminally investigate or prosecute any alcohol or drug abuse patient.[facility] Hospital[facility] the event this information is protected by the Federal Confidentiality of Alcohol and Drug Abuse Patient Records regulations: The Federal rules restrict any use of the information to criminally investigate or prosecute any alcohol or drug abuse patient.[facility] Hospital[facility] the event this information is protected by the Federal Confidentiality of Alcohol and Drug Abuse Patient Records regulations: The Federal rules restrict any use of the information to criminally investigate or prosecute any alcohol or drug abuse patient.[facility] Reason for Visit (unrecogniz ed section and content) Reason Comments Yearly Exam Reason Comments Follow-up Med check Reason Comments Full Body Skin Check Reason Onset Date Comments Refill Request 08/15/2023 Reason Comments Light Treatments Reason Comments Refill Request Reason Onset Date Comments Refill Request 12/14/2023 Reason Onset Date Comments Refill Request 02/15/2024 Reason Comments Well Woman Reason Comments Mammogram Abnormality Care Teams (unrecognized sec tion and content) Valve Technician Relationship Specialty Start Date End Date Frank Gonsalez DO PCP - General Family Medicine 08/22/12 Team Status: Active Member Role Status Dates Dr. Timbo Toney , Family Provider Active Dr. Frank Gonsalez DO Primary Care Provider Active Team Status: Active Member Role Status Dates Dr. Timbo Toney DO Primary Care Provider Active Fidelina Jarocho Attending Provider Active Team Status: Active Member Role Status Dates Dr. Frank Gonsalez DO Primary Care Provider Active Dr. Blaine Collier , DO Attending Provid er, Referring Provider, Other Provider Active Team Status: Active Member Role Status Dates Dr. Timbo Toney , DO Primary Care Provider Active Health Risk Assessment Attending Provider, Referring Chalo kurtz Active Team Status: Inactive Member Role Status Dates Dr. Frank Gonsalez , DO Primary Care Provider Active Dr. Blaine Collier , DO Attending Provider, Referring Provider Active Team Status: Inactive Member Role Status Dates Dr. Frank Gonsalez , DO Primary Care Provider Active Dr. Estrellita Mcneal , DO Attending Provider, Referring Pr ovider Active Valve Technician Relationship Specialty Start Date End Date Frank Gonsalez, DO PCP - General Family Medicine 08/22/12 Valve Technician Relationship Specialty Start Date End Date SunshineFrank DO [address] [place] [phone] PCP - General 07/07/20 Valve Technician Relationship Specialty Start Date End Date MorisFrank rubio DO PCP - General Family Medicine 08/22/12 Team Status: Inactive Member Role Status Dates Dr. Frank Gonsalez DO Primary Care Pr ovider, Attending Provider, Referring Provider Active Valve Technician Relationship Specialty Start Date End Date SunshineFrank DO [address] [place] [phone] PCP - General 07/07/20 Valve Technician Relationship Specialty Start Date End Date SunshineFrank DO PCP - General Family Medicine 08/22/12 Valve Technician Relationship Specialty Start Date End Date Frank Gonsalez González DO PCP - General Family Medicine 08/22/12 Valve Technician Relationship Specialty Start Date End Date Frank Gonsalez DO PCP - General Family Medicine 08/22/12 Valve Technician Relationship Specialty Start Date End Date Frank Gonsalez DO PCP - General Family Medicine 08/22/12 Valve Technician Relationship Specialty Start Date End Date Frank Gonsalez DO PCP - General Family Medicine 08/22/12 Valve Technician Relationship Specialty Start Date End Date Frank Gonsalez DO PCP - General Family Medicine 08/22/12 Valve Technician Relationship Specialty Start Date End Date KristydeboFrank DO PCP - General Family Medicine 08/22/12 Valve Technician Relationship Specialty Start Date End Date Frank Gonsalez DO PCP - General Family Medicine 08/22/12 Valve Technician Relationship Specialty Start Date End Date MorisramiroFrank DO PCP - General Family Medicine 08/22/12 Valve Technician Relationship Specialty Start Date End Date Frank Gonsalez DO PCP - General Family Medicine 08/22/12 Valve Technician Relationship Specialty Start Date End Date Kristydebo Frank Huertas DO PCP - General Family Medicine 08/22/12 Team Status: Active Member Role Status Dates Dr. Frank Gonsalez DO Primary Care Provider Active Team Status: Active Member Role Status Dates Dr. Frank Gonsalez DO Primary Care Provider Active Start: April 15, 2024 Health Risk Assessment Attending Provider Active Start: April 15, 2024 Team Status: Inactive Member Role Status Dates Dr. Frank Gonsalez DO Primary Care Provider Active Start: May 16, 2024 End: May 16, 2024 Aliya Keating NP SLIP COVER ESTIMATOR-C Attending Provider Active S tart: May 16, 2024 End: May 16, 2024 Aliya Keating NP, NP-C Referring Provider Active S tart: May 16, 2024 End: May 16, 2024 INFORMATION SOURCE (unrecogn ized section and content) DATE CREATED AUTHOR 05/26/2023 [facility] DATE CREATED AUTHOR AUTHOR'S ORGANIZ ATION 05/18/2024 [facility] DATE CREATED AUTHOR AUTHOR'S ORGANIZ ATION 08/12/2024 [facility] Goals (unrecognized section and content) Goals may be documented in a n alternate section FOR RECORDS PERTAINING TO PATIENTS WHO ARE [...] BE BASED ON THE PRIMARY CLINICAL RECORDS. [employer] [facility]. provides no warranty or guarantee of the accuracy or completeness of information in this document.
[2024-08-19 08:09] LABS: Glucose GTT- Fasting 96 mg/dL (70-99)
[2024-08-19 08:50] LABS: Color, Urine Yellow (Yellow); Glucose, Dipstick Normal (Normal); Ketone-Dipstick Negative (Negative); Leukocyte Esterase-Dipstick Negative /ul (Negative); Nitrite-Dipstick Negative (Negative); Occult Blood-Urine 10 /ul (Negative); Protein-Dipstick 15 mg/dl (Negative); Specific Gravity, Urine 1.025 (1.002-1.030); Urine Bilirubin Dipstick Negative (Negative); Urine Clarity Clear (Clear); Urine Urobilinogen Normal (Normal)
[2024-08-19 08:58] LABS: Squamous Epithelial Cells - UA 0-5 SEEN /hpf (5-10)
[2024-08-19 09:26] LABS: Creatinine, Serum 0.76 mg/dL (0.70-1.20); EST Glomerular Filtration Rate 91 (>60); Phosphorus 2.1 mg/dL (2.7-4.5)
[2024-08-19 10:45] LABS: Cholesterol 211 mg/dL (<=200); High Density Lipoprotein 42 mg/dL; Low Density Lipoprotein Calc. 96 mg/dL; Triglycerides 362 mg/dL; Very Low Density Lipoprotein 72 mg/dL (5-40); cholesterol:hdl ratio screen 4.98
[2024-08-19 11:07] LABS: Microalbumin,Random Urine < 12.0 mg/L (NO RANGE EST.); Microalbumin:Creatinine Ratio UNABLE TO CALCULATE mg/g CRE
[2024-08-19 11:10] LABS: Glucose GTT- 1 Hour 135 mg/dL (120-170)
[2024-08-19 11:11] LABS: Glucose GTT-30 minutes 144 mg/dL (110-170)
[2024-08-19 11:18] LABS: Hemoglobin A1c 5.5 % (<=5.6)
[2024-08-19 12:14] LABS: Glucose GTT- 2 Hour 133 mg/dL (70-120)
== END | disposition home or self-care (01) ==
LOC: LAB.FUTURE 07:01 → LAB 07:10
PROVIDERS: PCP Family Medicine
DX: Z52.4 Kidney donor (principal)
CPT/HCPCS: 36415; 80061; 81001; 82043; 82565; 82570; 82951; 82952; 83036; 84100; 86900; 86901